=== PATIENT | female | born 1950 | race Caucasian/White ===

== ENCOUNTER 2022-02-02 21:47 | Inpatient (IN) | payer MEDICARE, SELFPAY ==
[2022-02-02] VITALS (7 sets, daily range): BP systolic 162–173; BP diastolic 71–112; PULSE 97–107; RESP 19–24; TEMP 37.2–39.1; O2SAT 95–99
--- NOTE | ~2022-02-02 | XR_ITS ---
EXAMINATION: XR chest 1V portable DATE: 02/03/2022 09:26 INDICATION: Shortness of breath. Cough. TECHNIQUE: A single frontal view of the chest was obtained. COMPARISON: Chest single view 02/02/2022 FINDINGS: There is a diffuse interstitial pattern, consistent mild pulmonary edema. There are mild ai rspace opacities in left mid and lower lung zones. No pleural effusion or pneumothorax. Cardiomegaly is noted. Median sternotomy wires and mediastinal surgical clips are seen, likely from prior coronary artery bypass grafting. There is an old healed fracture of proximal right humerus. IMPRESSION: 1. Mild pulmonary edema. 2. Mild airspace opacities in left mid and lower lung zones, consistent with atelectasis versus pneum onia. 3. Cardiomegaly. Reviewed, dictated and finalized at location A. IMPRESSION: 1. Mild pulmonary edema. 2. Mild airspace opacities in left mid and lower lung zones, consistent with at electasis versus pneumonia. 3. Cardiomegaly.
--- NOTE | ~2022-02-02 | XR_ITS ---
EXAMINATION: XR chest 1V portable DATE: 02/02/2022 22:21 INDICATION: Cough. Shortness of breath. TECHNIQUE: A single frontal view of the chest was obtained. COMPARISON: None. FINDINGS: There are airspace opacities in the mid and lower lung zones. No pleural effusion or pneumo thorax. Cardiomegaly is noted. Median sternotomy wires and mediastinal surgical clips are seen, likel y from prior coronary artery bypass grafting. IMPRESSION: 1. Airspace opacities in the mid and lower lung zones, consistent with atelectasis versus pneumonia. 2. Cardiomegaly. Reviewed, dictated and finalized at location A. IMPRESSION: 1. Airspace opacities in the mid and lower lung zones, consistent with atelecta sis versus pneumonia. 2. Cardiomegaly.
--- NOTE | 2022-02-02 22:00 | ECG_ITS ---
Measurements Intervals [place] Rate: 99 P: [place]: 0 QRS: 97 QRSD: 87 T: 106 QT: 361 QTc: 464 Interpretive Statements ATRIAL FIBRILLATION BORDERLINE RIGHT AXIS DEVIATION [QRS AXIS > 90] ST DEPRESSION IN LEADS 1 AND AVL; CONSIDER ISCHEMIA NONSPECIFIC ST T WAVE CHANGES ELSEWHERE POOR R-WAVE PROGRESSION NO PRIOR TRACINGS FOR COMPARISON Electronically Signed On 02-03-2022 16:39:44 CDT by Jessica Singh M.D.
--- NOTE | 2022-02-02 22:04 | ED.GENADULT ---
HPI - General Adult General Chief complaint: Shortness of Breath/Dyspnea Stated complaint: sob with cough x 2 days Source: RN notes reviewed History of Present Illness HPI narrative: Patient presents emergency department from home via EMS for shortness of breath. Patient states she has been having increased shortness of breath with a cough for the past 3 days. States that the cough is productive of clear sputum also notes low-grade fever. The patient noted to be 89% on room air and placed on nasal cannula. Denies any chest pain abdominal pain nausea vomiting or any other symptoms. States he does have a history of atrial fibrillation and is on Eliquis Related Data Home Medications Medication Instructions Recorded Confirmed apixaban [Eliquis] 5 mg PO BID 02/03/22 02/03/22 ascorbic acid (vitamin C) 500 mg PO DAILY 02/03/22 02/03/22 biotin 2,500 mcg PO DAILY 02/03/22 02/03/22 carvedilol 6.25 mg PO BID 02/03/22 02/03/22 cholecalciferol (vitamin D3) 5,000 unit PO DAILY 02/03/22 02/03/22 [Vitamin D3] diltiazem HCl 120 mg PO BID 02/03/22 02/03/22 esomeprazole magnesium [Nexium] 40 mg PO DAILY 02/03/22 02/03/22 ferrous sulfate [Iron (ferrous 325 mg PO DAILY 02/03/22 02/03/22 sulfate)] folic acid 0.8 mg PO DAILY 02/03/22 02/03/22 magnesium 400 mg PO DAILY 02/03/22 02/03/22 mecobalamin (vitamin B12) 1,000 mcg PO DAILY 02/03/22 02/03/22 sertraline 25 mg PO DAILY 02/03/22 02/03/22 Allergies Allergy/AdvReac Type Severity Reaction Status Date / Time No Known Allergies Allergy Verified 02/02/22 22:19 Review of Systems Review of Systems: Gen.: Reports fever ENT: Denies congestion Respiratory: See HPI CV: Denies chest pain or palpitations GI: Denies abdominal pain nausea, emesis or diarrhea Musculoskeletal: Denies back pain or muscle pain Neuro: Denies numbness, tingling, weakness or focal weakness Skin: Denies rash Except as documented, all other systems reviewed and negative PMFSH Past Medical History Medical History Atrial fibrillation Surgical History Surgical History S/P triple vessel bypass Family History Family History (Updated 02/03/22 @ 05:55 by Vicki Sanchez RN) Father CAD (coronary artery disease) Mother CAD (coronary artery disease) Acute myocardial infarction S/P CABG (coronary artery bypass graft) Sibling CAD (coronary artery disease) Acute myocardial infarction Sibling CAD (coronary artery disease) Cerebrovascular accident Sibling CAD (coronary artery disease) Diabetes mellitus Social History Social History Smoking packs per day: 1 Smoking cigarettes per day: 20.0 Years smoked: 20 Smoking pack-years: 20.00 Smoking status: Former smoker Tobacco type: cigarettes Alcohol intake: current Drinks per week: 1 Substance use: never Spiritual care concerns: No Exam Narrative: APPEARANCE: No acute distress, nontoxic, resting in bed EYES: EOMI HEENT: Normocephalic, atraumatic, OMM RESPIRATORY: Mild respiratory distress wheezing throughout the bilateral lung [place] no rhonchi CARDIOVASCULAR: Irregular irregular without murmurs rubs or gallops. ABDOMINAL: Soft, nontender, nondistended, no rebound or guarding MUSCULOSKELETAl: Moves all extremities. No clubbing, cyanosis or edema. NEURO: Awake and alert. Following commands, speech normal, no focal deficits SKIN:: Warm, dry. No rashes lesions or abrasions PSYCHIATRIC: Normal affect/mood, Course Course Emergency Course: Patient states she has a history of a triple bypass and 2000 she states that she is having no chest pain at this time On discussed with Dr Larsen presentation work-up on-call for interventional cardiology reviewed the patient's 2 EKGs and they were sent to him for review at this time with EKG changes he requests that cardiac cath team be call
[2022-02-02] MEDS: methylPREDNISolone SOD SUCC 125 MG VIAL IV PUSH (22:24)
[2022-02-02] MEDS: ALBUTEROL SULFATE NEB 2.5 MG/0.5 ML INH 5 MG INHALATION ×2 (22:41→23:40)
[2022-02-02] MEDS: IPRATROPIUM BR 0.02% INH SOLN 0.5 MG/2.5 ML VIAL INHALATION ×2 (22:41→23:40)
[2022-02-02 22:44] LABS: Basophils Absolute Auto 0.1 K/mm3 (0.0-0.1); Basophils Percent Auto 0.5 % (0.2-1.2); Eosinophils Percent Auto 0.1 % (0-4.4); Hematocrit 39.1 % (37.0-47.0); Hemoglobin 13.1 g/dL (12.0-15.0); Immature Granulocyte Absolute 0.14 K/mm3 (0.00-0.031); Immature Granulocyte Percent A 0.8 % (0-0.5); Lymphocytes Percent Auto 7.8 % (18.3-44.2); Mean Corpuscular HGB Conc 33.5 g/dl (32-36); Mean Corpuscular Hemoglobin 30.8 pg (26-34); Mean Corpuscular Volume 91.8 fl (80-100); Mean Platelet Volume 10.6 fl (7.4-10.4); Monocytes Absolute Auto 1.5 K/mm3 (0.1-0.6); Monocytes Percent Auto 9.2 % (2.6-8.5); Neutrophils Absolute Auto 13.6 K/mm3 (1.3-6.7); Neutrophils Percent Auto 81.6 % (45.5-73.1); Platelet Count Result 254 k/mm3 (150-375); Red Blood Count 4.26 M/mm3 (4.2-5.4); Red Cell Distribution Width 15.5 % (11.5-14.5); White Blood Count 16.7 K/mm3 (4.5-10.0)
--- NOTE | 2022-02-02 22:53 | ECG_ITS ---
Measurements Intervals [place] Rate: 104 P: [place]: 0 QRS: 100 QRSD: 86 T: 126 QT: 357 QTc: 471 Interpretive Statements ATRIAL FIBRILLATION WITH RAPID VENTRICULAR RESPONSE BORDERLINE RIGHT AXIS DEVIATION [QRS AXIS > 90] ST DEPRESSION, CONSIDER SUBENDOCARDIAL INJURY NOTED IN LEADS 1, AVL AND V2 SLIGHT ST ELEVATION IN LEADS 3 AND AVF, NEW COMPARED TO EARLIER TRACING; CONSIDER POSSIBLE INFERIOR STEMI Electronically Signed On 02-03-2022 16:40:33 CDT by Jessica Singh M.D.
[2022-02-02 22:56] LABS: Alanine Aminotransferase 30 U/L (4-35); Albumin Level 4.5 g/dL (3.5-5.1); Alkaline Phosphatase 150 U/L (38-126); Anion Gap 11 mmol/L (8-16); Aspartate Amino Transferase 37 U/L (14-36); Bilirubin,Total 1.6 mg/dL (0.2-1.3); Blood Urea Nitrogen 16 mg/dL (7-17); Carbon Dioxide 24 mmol/L (22-30); Chloride 100 mmol/L (98-107); Estimated CRCL calculation 62 ml/min; Estimated Glomerular Filt Rate > 60; Glucose 117 mg/dL (65-110); Potassium 3.5 mmol/L (3.4-5.0); Sodium 135 mmol/L (137-145)
[2022-02-02 22:57] LABS: Anion Gap 11 mmol/L (8-16); Blood Urea Nitrogen 16 mg/dL (7-17); Carbon Dioxide 24 mmol/L (22-30); Chloride 100 mmol/L (98-107); Estimated CRCL calculation 62 ml/min; Estimated Glomerular Filt Rate > 60; Glucose 116 mg/dL (65-110); Lactic Acid Reflex 1.2 mmol/L (0.7-2.1); Potassium 3.5 mmol/L (3.4-5.0); Sodium 135 mmol/L (137-145)
[2022-02-02 23:15] LABS: Troponin I 0.038 ng/mL (0.000-0.034)
[2022-02-02 23:18] LABS: Influenza A QL RT-PCR Negative (Negative); Influenza B QL RT-PCR Negative (Negative); SARS-CoV-2 RNA PCR Negative
[2022-02-02 23:39] LABS: Alanine Aminotransferase 31 U/L (4-35); Albumin Level 4.7 g/dL (3.5-5.1); Alkaline Phosphatase 149 U/L (38-126); Aspartate Amino Transferase 38 U/L (14-36); Bilirubin,Total 1.6 mg/dL (0.2-1.3)
--- NOTE | 2022-02-02 23:44 | ECG_ITS ---
Measurements Intervals [place] Rate: 102 P: [place]: 0 QRS: 100 QRSD: 89 T: -15 QT: 352 QTc: 459 Interpretive Statements ATRIAL FIBRILLATION WITH RAPID VENTRICULAR RESPONSE BORDERLINE RIGHT AXIS DEVIATION [QRS AXIS > 90] NONSPECIFIC ST & T-WAVE ABNORMALITY COMPARED TO ECG 02/02/2022 23:09:[address] DEPRESSION HAS IMPROVED AND THE INFERIOR ST-ELEVATION HAS IMPROVED. Electronically Signed On 02-03-2022 16:40:58 CDT by Jessica Singh M.D.
[2022-02-03] VITALS (25 sets, daily range): BP systolic 108–168; BP diastolic 52–81; PULSE 71–115; RESP 13–26; TEMP 36.3–38.3; O2SAT 93–98; BMI 29.4
--- NOTE | 2022-02-03 00:09 | PC.NURSE ---
label drier here to get pt.
[2022-02-03 00:10] LABS: Partial Thromboplastin Time 42.2 SECONDS (22.3-36.8)
[2022-02-03 00:12] LABS: Add Urine Microscopic? YES; Appearance Urine Cloudy (Clear); Bilirubin Urine Negative (Negative); Blood Urine Negative (Negative); Color Urine Amber (Yellow); Glucose Urine UA Negative (Negative); Ketones Urine 1+ mg/dL (Negative); Leukocyte Esterase Ur Negative LEU/UL (Negative); Mucus Urine Moderate /lpf; Nitrate Urine Negative (Negative); Protein Urine 3+ mg/dL (Negative); Squamous Epithelial Cell Urine Occasional /hpf (Few)
[2022-02-03 00:15] LABS: INR 1.7; Prothrombin Time 19.4 Seconds (11.1-14.7)
[2022-02-03 00:21] LABS: Specific Grav Ur 1.032 (1.001-1.035)
--- NOTE | 2022-02-03 01:19 | WPDHPUPDATE1 ---
History and Physical Update Update Date/Time: 02/03/22 01:19 History and Physical has been reviewed, including an updated exam of the patient. There are NO changes in the patient's condition. Risks, benefits, and alternatives have been discussed and questions answered. Patient agrees to proceed with procedure.
--- NOTE | 2022-02-03 01:19 | WPDMODSED ---
Moderate Sedation Note-Pt Data Patient Data Allergies Allergy/AdvReac Type Severity Reaction Status Date / Time No Known Allergies Allergy Verified 02/02/22 22:19 Current Medications: Active Medications Ceftriaxone Sodium/Dextrose (Rocephin 1 Gm/D5w 50 Ml) 1 gm in 50 mls @ 100 mls/hr IVPB Q24H [facility] Azithromycin (Zithromax) 500 mg in 250 mls @ 250 mls/hr IVPB Q24H [facility] Sedation/Anesthesia: No previous sedation/anesthesia problems (including family history). PMFSH Past Medical History Medical History Atrial fibrillation Surgical History Surgical History S/P triple vessel bypass Social History Social History Smoking status: Never smoker Mod Sed Physical Exam Physical Exam Pre Procedural Exam: Normal: Appearance, Eyes, Ears, Nose, Neck, Throat, Airway, Lungs, Heart Size, Heart Rate, Heart Rhythm, Neuro Exam, Abdomen, Liver, Kidneys, Spleen, Breasts, Genitalia, Extremities and Skin Hours since solid foods: 8 Hours since liquid intake: 8 Mallampati Classification: class 1 Internal Medicine - PN: Obj Da Vital Signs Vital Signs: Vital Signs - 24 hr 02/02/22 21:56 02/02/22 22:41 02/02/22 22:46 Temperature 39.1 C H Pulse Rate 98 104 H 104 H Respiratory Rate 20 22 H 24 H Blood Pressure 162/112 H Pulse Oximetry 95 02/02/22 23:00 02/02/22 23:40 02/02/22 23:49 Temperature 37.2 C Pulse Rate 103 H 107 H 97 Respiratory Rate 22 H 22 H 19 Blood Pressure 173/71 H Pulse Oximetry 99 02/02/22 23:59 Temperature 38.6 C H Pulse Rate 104 H Respiratory Rate 20 Blood Pressure 170/75 H Pulse Oximetry 98 Meds/Results Medications: Active Medications Generic Name Dose Route Start Last Admin Trade Name Freq PRN Reason Stop Dose Admin Ceftriaxone Sodium/Dextrose 1 gm in 50 mls @ 100 mls/hr 02/02/22 23:35 Rocephin 1 Gm/D5w 50 Ml IVPB Q24H [facility] Azithromycin 500 mg in 250 mls @ 250 mls/hr 02/02/22 23:35 Zithromax IVPB Q24H [facility] Labs CBC & Chem 7: 02/02/22 22:30 02/02/22 22:30 Labs: Laboratory Results - last 24 hr 02/02/22 02/02/22 02/02/22 22:30 22:30 22:30 WBC 16.7 H RBC 4.26 Hgb 13.1 Hct 39.1 MCV 91.8 MCH 30.8 MCHC 33.5 RDW 15.5 H Plt Count 254 MPV 10.6 H Immature Gran % (Auto) 0.8 H Neut % (Auto) 81.6 H Lymph % (Auto) 7.8 L Dewitt % (Auto) 9.2 H Eos % (Auto) 0.1 Baso % (Auto) 0.5 Lymph # (Auto) 1.30 Dewitt # (Auto) 1.5 H Eos # (Auto) 0.0 Baso # (Auto) 0.1 Abs Immat Gran (auto) 0.14 H Absolute Neuts (auto) 13.6 H Absolute Nucleated RBC 0.0 Nucleated RBC % 0.0 PT INR APTT Sodium 135 L Potassium 3.5 Chloride 100 Carbon Dioxide 24 Anion Gap 11 BUN 16 Creatinine 0.50 L Estim Creat Clear Calc 62 Estimated GFR > 60 Glucose 117 H Lactic Acid 1.2 Calcium 9.0 Total Bilirubin 1.6 H Direct Bilirubin AST 37 H ALT 30 Alkaline Phosphatase 150 H Troponin I Total Protein 8.0 Albumin 4.5 Urine Color Urine Appearance Urine pH Ur Specific [place] Urine Protein Urine Glucose (UA) Urine Ketones Ur Blood (Man) Urine Nitrate Urine Bilirubin Urine Urobilinogen Leukocyte Esterase Rfl Urine RBC Urine WBC Ur Squamous Epith Cells Urine Mucus Influenza A (RT-PCR) Influenza B (RT-PCR) SARS-CoV-2 RNA (RT-PCR) 02/02/22 02/02/22 02/02/22 22:30 22:30 22:30 WBC RBC Hgb Hct MCV MCH MCHC RDW Plt Count MPV Immature Gran % (Auto) Neut % (Auto) Lymph % (Auto) Dewitt % (Auto) Eos % (Auto) Baso % (Auto) Lymph # (Auto) Dewitt # (Auto) Eos # (Auto) Baso # (Auto) Abs Immat Gran (auto) Absolute Neuts (auto) Absol
--- NOTE | 2022-02-03 01:20 | PM.IMHP ---
H&P: HPI History of Present Illness Date/Time: DOS: 02/03/22 01:20 Chief Complaint: Shortness of breath cough Narrative: this 72-year-old lady with history CABG and then the redo 1999 with reported 3 grafts. history of atrial fibrillation on Eliquis follows up with Dr. dsouza. 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 Denies chest pain. denies lower extremity edema. Last Eliquis dose was yesterday morning. I was called to see the patient because the initial EKG shows ST elevation inferior leads with ST depression in leads 1 and aVL. Initial troponin 0.038. However the EKG after that normalized. family history: denies CAD. Review of Systems Review of Systems: All systems reviewed & are unremarkable except as noted in HPI and below Constitutional: Constitutional: Reports chills, Reports fatigue, Reports fever(s), Denies headache(s) and Denies snoring Eyes: Eyes: Denies eye discharge and Denies loss of vision ENT: Denies dizziness, Denies headache(s), Denies nasal discharge and Denies sore throat Cardiovascular: Cardiovascular: Reports as per HPI, Denies chest pain, Denies syncope, Denies rapid heart rate, Denies leg edema, Reports dyspnea, Reports dyspnea on exertion, Denies orthopnea and Denies paroxysmal nocturnal dyspnea Respiratory: Respiratory: Reports chest congestion, Reports cough, Reports dyspnea, Reports dyspnea on exertion, Denies snoring and Denies wheezing Gastrointestinal: Gastrointestinal: Denies abdominal pain, Denies diarrhea, Denies nausea and Denies vomiting Genitourinary: Genitourinary: Denies hematuria, Denies urinary frequency, Denies dysuria and Denies flank pain Musculoskeletal: Musculoskeletal: Denies myalgias, Denies arthralgias and Denies joint swelling Neurologic: Denies Abnormal speech present, Denies dizziness, Denies syncope, Denies headache(s), Denies focal weakness and Denies loss of vision Psychiatric: Psychiatric: Denies anxiety and Denies depression Endocrine: Endocrine: Denies cold intolerance, Denies fatigue and Denies heat intolerance Hematologic/Lymphatic: Hematologic/Lymphatic: Denies easy bleeding and Denies easy bruising Allergic/Immunologic: Allergic/Immunologic: Denies urticaria and Denies wheezing PMFSH Past Medical History Medical History Atrial fibrillation Surgical History Surgical History S/P triple vessel bypass Social History Social History Smoking status: Never smoker Meds Home Medications and Allergies Allergies Allergy/AdvReac Type Severity Reaction Status Date / Time No Known Allergies Allergy Verified 02/02/22 22:19 Vital Signs Vital Signs - 24 hr 02/02/22 21:56 02/02/22 22:41 02/02/22 22:46 Temperature 39.1 C H Pulse Rate 98 104 H 104 H Respiratory Rate 20 22 H 24 H Blood Pressure 162/112 H Pulse Oximetry 95 02/02/22 23:00 02/02/22 23:40 02/02/22 23:49 Temperature 37.2 C Pulse Rate 103 H 107 H 97 Respiratory Rate 22 H 22 H 19 Blood Pressure 173/71 H Pulse Oximetry 99 02/02/22 23:59 Temperature 38.6 C H Pulse Rate 104 H Respiratory Rate 20 Blood Pressure 170/75 H Pulse Oximetry 98 Exam Const: General: cooperative, healthy appearing, comfortable, no acute distress and well developed Nutritional Appearance: well nourished Orientation/consciousness: patient oriented x3 HENMT: Head: normal to inspection, normocephalic and atraumatic Ears: hearing grossly normal bilaterally and external ears normal General nose exam: Normal external nose present and Normal nares present Face and sinus: normal facial exam and no erythema Mouth: Yes moist mucous membranes and No lip abnormal Throat: uvula mid
--- NOTE | 2022-02-03 01:28 | WPDCARDPROC ---
Cardiac Cath Procedure Note Date of procedure:: 02/03/22 Performing physician:: Barron Hamilton MD Indication:: Inferior STEMI Brief clinical history:: this 72-year-old lady with history CABG and then the redo 2000 with reported 3 grafts. history of atrial fibrillation on Eliquis follows up with Dr. dsouza. 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 Denies chest pain. denies lower extremity edema. Last Eliquis dose was yesterday morning. I was called to see the patient because the initial EKG shows ST elevation inferior leads with ST depression in leads 1 and aVL. Initial troponin 0.038. However the EKG after that normalized. Procedure Procedure performed:: 1- selective right common femoral artery angiogram. 2- Selective left common femoral artery angiogram. 3- Selective left common and external iliac artery angiogram. Sedation/Medication given:: moderate sedation that started at 12:37 a.m. and ended at 1:08 a.m. a total duration 31 minutes using 1 mg of Versed and 25 mcg of fentanyl. The registered nurse was yoan card. Access site:: right and left common femoral arteries. Estimated blood loss:: 10 cc Procedure note:: After informed consent patient was brought into the optical laboratory manager where she was draped and prepped in the usual manner. The right groin was infiltrated using 1% lidocaine. After that micro puncture sheath was obtained using modified Seldinger technique. we tried to advance J-wire without success and got stuck in external iliac just before a stent. Then we took an angled glide wire and again we could not pass any further. At this time I have put 6 Arabic sheath and then took JR4 catheter and tried to go up with angled glide wire and we could not advance the wire at all. we took angiogram and selective right common femoral arterial angiogram. At this time I decided to access the left groin and therefore left groin infiltrated using 1% lidocaine and then micro puncture needle was used to access the left common femoral artery and micropuncture sheath was placed. We managed to place 6 Arabic sheath. We attempted to try and pass the J wire without success. At this time I took angled glide wire and could not pass it either. Selective common femoral artery angiogram was done. Then I used JR4 catheter with angled glide and angled glide passed all the way up however I could not pass the JR4 catheter. I exchanged the angled glide wire with long J-wire and then took 45 cm sheath however we could not advance it beyond the mid left common iliac. There was sharp angle with diffuse calcification. Selective left common iliac arterial angiogram was done. At this time we decided to abort the cardiac catheterization due to inability to pass catheters. Findings:: 1- Right common femoral artery angiogram has severe stenosis distal to the access point. diffuse calcification the right external iliac and there is a stent placed in the right external iliac that has diffuse irregularities. I believe prior to the stent there is a focal area of stenosis that we could not pass any catheters beyond that point. 2- Left common femoral artery angiogram shows that the bifurcation of the left common femoral arteries high and corresponding to the midportion of the femoral head. After that the left external iliac has diffuse calcification and left external iliac along with the left common femoral artery have tortuosities and diffuse calcification that made navigating catheters is extremely challenging. Conclusion:: - Inability to pass catheters from the right and the left femoral arteries due to tortuosities and calcification in the iliacs. Assessment and Plan Additional Plan - We will continue medical management for now. - Continue treatment for fever and cough - further plans for ischemic evaluation
--- NOTE | 2022-02-03 01:30 | ADMGEN ---
This patient, Karen Martinez, was admitted to Intensive Care Unit-1. Patient/family oriented to hospital policies and general routines including ID bracelet, bed and alarms, visiting hours, pain management, procedures, bathroom and other care routines, personal items, smoking policy, room service/diet, and visiting hours. Information on how to activate the Rapid Response Team has been discussed. Patient/Family are encouraged to report perceived risks to care and to ask questions if they do not understand what they are told or what they should do.
--- NOTE | 2022-02-03 01:43 | ECG_ITS ---
Measurements Intervals [place] Rate: 96 P: [place]: 0 QRS: 96 QRSD: 92 T: -30 QT: 392 QTc: 495 Interpretive Statements ATRIAL FIBRILLATION BORDERLINE RIGHT AXIS DEVIATION [QRS AXIS > 90] NONSPECIFIC ST & T-WAVE ABNORMALITY SLIGHT ST DEPRESSION IN THE LATERAL LEADS, CONSIDER ISCHEMIA COMPARED TO ECG 02/02/2022 23:47:48 NO SIGNIFICANT CHANGES Electronically Signed On 02-03-2022 16:43:03 CDT by Jessica Singh M.D.
--- NOTE | 2022-02-03 03:00 | PC.NURSE ---
Daylight Savings Time For Daylight Savings Time Ending in the Fall - Clocks are moved back. For Daylight Savings Time Beginning in the Spring - Clocks are moved ahead. For [facility], the time of change occurs at 0200 hrs. Time is taken from the water server. This entry on the patient's chart recognizes the change in time reflected during documentation. Example: 2 entries for vital signs may be charted for 0200 hrs.
[2022-02-03 05:27] LABS: Basophils Absolute Auto 0.1 K/mm3 (0.0-0.1); Basophils Percent Auto 0.4 % (0.2-1.2); Hematocrit 37.6 % (37.0-47.0); Hemoglobin 12.2 g/dL (12.0-15.0); Immature Granulocyte Absolute 0.11 K/mm3 (0.00-0.031); Immature Granulocyte Percent A 0.8 % (0-0.5); Lymphocytes Percent Auto 5.1 % (18.3-44.2); Mean Corpuscular HGB Conc 32.4 g/dl (32-36); Mean Corpuscular Hemoglobin 31.1 pg (26-34); Mean Corpuscular Volume 95.9 fl (80-100); Mean Platelet Volume 10.6 fl (7.4-10.4); Monocytes Absolute Auto 0.3 K/mm3 (0.1-0.6); Monocytes Percent Auto 2.4 % (2.6-8.5); Neutrophils Absolute Auto 12.4 K/mm3 (1.3-6.7); Neutrophils Percent Auto 91.3 % (45.5-73.1); Platelet Count Result 217 k/mm3 (150-375); Red Blood Count 3.92 M/mm3 (4.2-5.4); Red Cell Distribution Width 15.6 % (11.5-14.5); White Blood Count 13.6 K/mm3 (4.5-10.0)
[2022-02-03 05:43] LABS: Anion Gap 9 mmol/L (8-16); Blood Urea Nitrogen 13 mg/dL (7-17); Calcium 8.4 mg/dL (8.4-10.2); Carbon Dioxide 22 mmol/L (22-30); Chloride 104 mmol/L (98-107); Estimated CRCL calculation 90 ml/min; Estimated Glomerular Filt Rate > 60; Glucose 178 mg/dL (65-110); Potassium 3.6 mmol/L (3.4-5.0); Sodium 135 mmol/L (137-145)
[2022-02-03 06:27] LABS: INR 1.6; Prothrombin Time 18.1 Seconds (11.1-14.7)
[2022-02-03 06:29] LABS: Partial Thromboplastin Time 50.4 SECONDS (22.3-36.8)
[2022-02-03 08:04] LABS: NT Pro B Type Natriuretic Pept 3620 pg/mL (5-100)
[2022-02-03] MEDS: SODIUM CHLORIDE 0.9% IV 1,000 ML 75 ML IV CONT (08:57)
[2022-02-03] MEDS: CLOPIDOGREL BISULFATE 75 MG TABLET PO (08:58)
--- NOTE | 2022-02-03 09:18 | PM.PNCARD ---
Progress Note: A&P Assessment and Plan (1) ST elevation (STEMI) myocardial infarction: Code(s): I21.3 - ST elevation (STEMI) myocardial infarction of unspecified site Status: Acute Assessment and Plan: Patient is thought to have an inferior STEMI early this morning with EKG changes at resolved. Waxing and waning EKG changes. Unable to perform cardiac catheterization be due to lack of femoral access Patient has been feeling better, and has never had any chest pain. Will continue to treat as ACS. Ordered troponins Continue aspirin, plavix, carvedilol, etc. Not on a statin; add atorvastatin Start heparin drip Obtain records and I will try to talk to Dr. Chang today. May need another attempt at cardiac catheterization, hopefully in elective manner, depending on the patient's course. Access will be a problem since she has had her left radial artery harvested and the right radial pulse is decreased. (2) Community acquired pneumonia: Code(s): J18.9 - Pneumonia, unspecified organism Status: Acute Assessment and Plan: On anticiotica and O2. COVID and influenza screens negative (3) S/P triple vessel bypass: Code(s): Z95.1 - Presence of aortocoronary bypass graft Status: Acute Assessment and Plan: H/O re-do CABG 1999; pt says 3 vessel CABG. (4) Atrial fibrillation: Code(s): I48.91 - Unspecified atrial fibrillation Status: Acute Assessment and Plan: Persistent a fib, on rate control and anticoagulation. (5) PVD (peripheral vascular disease): Code(s): I73.9 - Peripheral vascular disease, unspecified Status: Acute Assessment and Plan: H/O LE revascualrizatioin. Unable to gain acdess to the central circulation through the femorals Left DP pulse nearly absent (PT intact, foot warm) Subjective Date/time seen: 02/03/22 09:18 Interval history: Progress note/Interum note: Follow-up pneumonia, STEMI History: Ms. Martinez has a history of CABG and redo CABG x3 in 1999 and has subsequently been followed by Dr. Chang with no further coronary issues. As far as she recalls she has passed her stress test and has no chronic coronary occlusions. She he developed atrial fib but couple years ago and has been anticoagulated with Eliquis, rate control with diltiazem. Also couple years ago she had problems with peripheral vascular disease and had a procedure on the right leg which did not go well, requiring a prolonged hospital stay, with some bleeding complications and requiring a stent. She has no typical angina, and her exertion is limited by CASTRO. She does have hypertension and hyperlipidemia. About 3 or 4 days ago she started having a cough productive of brown sputum and increased shortness of breath. Possibly some orthopnea. Yesterday she felt bad and called EMS and apparently her fever was 103? on their arrival. In the emergency room her temperature was a 102.3?. Chest x-ray was consistent with pneumonia and she was started on antibiotics. Her 1st EKG on 02/02/2022 at 10:00 p.m. showed atrial fibrillation rate [address] depression in leads 1 and aVL. A 2nd EKG at 02/02/2022 at 11:09 p.m. showed AFib rate 102, ST depression in 1 and L, and V2, and it was thought she had some slight ST elevation in leads 3 and AVF consistent with a possible STEMI. She never had any chest pain. Dr. Hamilton was called for her apparent STEMI and the cath team was called in. He was not able to gain access to the central circulation through the right groin or the left groin. At that point the EKG showed resolution of the ST elevation and improvement of the ST depression and the procedure was abandoned. Date of service 02/03/2022 Pt is feeling better now, eating breakfast. Mild cough and SOB, no CP/pressure/tightness. On 3L O2. Difficulty dopplering left DP pulse but no c/o pain and PT is dopplerable. Review of Systems Constitutional: Constitutional: Repor
[2022-02-03] MEDS: ASPIRIN 81 MG ENTERIC TABLET PO (09:27)
[2022-02-03 09:51] LABS: Troponin I 0.472 ng/mL (0.000-0.034)
[2022-02-03 10:26] LABS: Cholesterol 125 mg/dL (0-200); HDL Direct 48 mg/dL; Triglycerides 62 mg/dL (<150)
[2022-02-03] MEDS: FERROUS SULFATE 324 MG TABLET PO (10:35)
[2022-02-03 10:37] LABS: LDL Cholesterol Direct 55 mg/dL
[2022-02-03] MEDS: CYANOCOBALAMIN 1,000 MCG TABLET 1000 MCG PO (10:39)
[2022-02-03] MEDS: MAGNESIUM OXIDE 400 MG TABLET PO (10:39)
[2022-02-03] MEDS: FOLIC ACID 0.4 MG TABLET 0.8 MG PO (10:39)
[2022-02-03] MEDS: SERTRALINE HCL 25 MG TABLET PO (10:40)
[2022-02-03] MEDS: PANTOPRAZOLE 40 MG TABLET PO (10:40)
[2022-02-03] MEDS: carvediloL 6.25 MG TABLET PO (10:40)
[2022-02-03] MEDS: HEPARIN SOD/D5W 100 UNITS/ML 25,000 UNITS/250 ML BAG 7 UNITS IV CONT (10:41)
--- NOTE | 2022-02-03 10:43 | WPDCNINT ---
Assessment and Plan Assessment and plan (1) ST elevation (STEMI) myocardial infarction: Code(s): I21.3 - ST elevation (STEMI) myocardial infarction of unspecified site Status: Acute Assessment and Plan: Patient with shortness of breath, EKGs with some ST depressions and mild ST elevations in inferior leads -patient was taken for PTCA but unable to perform the cardiac catheterization due to lack of femoral access on both sides -has never had any chest pain during this admission -appreciate cardiology recommendations -continue treat for ACS, -troponins elevated -continue aspirin, Plavix, Coreg. Atorvastatin was added -will start heparin infusion per Cardiology -echocardiogram has been ordered -cardiology to discuss with [facility], if they accept the patient we may have to move it to [facility] (2) Community acquired pneumonia: Code(s): J18.9 - Pneumonia, unspecified organism Status: Acute Assessment and Plan: Patient complained of cough, fevers, shortness of breath -chest x-ray shows airspace opacities in left mid and lower lung zones -patient febrile, requiring 3 L oxygen via nasal cannula -she has been started on ceftriaxone and azithromycin (initiated on 02/03/2022) - blood cultures have been obtained, will order sputum cultures if able (3) Atrial fibrillation: Code(s): I48.91 - Unspecified atrial fibrillation Status: Acute Assessment and Plan: Patient in AFib, rate controlled -continue Coreg -heparin infusion (4) PVD (peripheral vascular disease): Code(s): I73.9 - Peripheral vascular disease, unspecified Status: Acute Assessment and Plan: History of lower extremity revascularization -unable to gain access to the central circulation through the femoral arteries -left dorsalis pedis this dopplerable but weak (5) Essential hypertension: Code(s): I10 - Essential (primary) hypertension Status: Acute Assessment and Plan: Continue diltiazem and Coreg (6) DVT prophylaxis: Code(s): Z29.9 - Encounter for prophylactic measures, unspecified Status: Acute Assessment and Plan: Heparin infusion Additional Plan Stress ulcer prophylaxis: Protonix Nutrition: Heart healthy diet Discussed with patient updated her with her condition and plan of care. She is aware that cardiology is following her and will be calling [facility] and will discuss with them regarding accepted sitter patient [facility], and if yes she will be transferred out Code status: Full code Critical care time spent: 45 minutes This dictation may have been done utilizing a voice recognition system. Attempts have been made to correct errors. However, there may be uncorrected grammatical, spelling, and recognition errors present. Due to a high probability of clinically significant, life threatening deterioration, the patient required my highest level of preparedness to intervene emergently and I personally spent this critical care time directly and personally managing the patient. This critical care time included obtaining a history; examining the patient; pulse oximetry; ordering and review of studies; arranging urgent treatment with development of a management plan; evaluation of patient's response to treatment; frequent reassessment; and discussions with other providers. It was exclusive of separately billable procedures and treating other patients and teaching time. Please see Assessment and Plan section and the rest of the note for further information on patient assessment and treatment Char [employer] Consult Note Consult date: 02/03/22 Time Seen: 07:04 Reason for consult: Shortness of breath with pneumonia, STEMI HPI: Karen Karin Michelle is a 72 year old female with significant past medical history of CABG and redo CABG x3 in 1999, history of atrial fibrillation and peripheral vascular disease presented the ED
[2022-02-03 12:14] LABS: Troponin I 0.428 ng/mL (0.000-0.034)
[2022-02-03] MEDS: guaiFENesin/CODEINE (*CRX) 200/20 MG 10 ML SYRUP PO ×2 (12:14→17:22)
[2022-02-03] MEDS: IPRATROPIUM BR 0.02% INH SOLN 0.5 MG/2.5 ML VIAL INHALATION (14:47)
[2022-02-03] MEDS: LEVALBUTEROL NEB 1.25 MG/3 ML 0.63 MG INHALATION (14:48)
[2022-02-03 15:05] LABS: Troponin I 0.853 ng/mL (0.000-0.034)
[2022-02-03 16:51] LABS: Partial Thromboplastin Time 52.8 SECONDS (22.3-36.8)
[2022-02-03] MEDS: HEPARIN SODIUM 5,000 UNITS/ML VIAL 4000 UNITS IV PUSH (17:22)
--- NOTE | 2022-02-03 17:32 | ECG_ITS ---
Measurements Intervals [place] Rate: 74 P: CT: 0 QRS: 48 QRSD: 89 T: 120 QT: 426 QTc: 474 Interpretive Statements ATRIAL FIBRILLATION NONSPECIFIC ST AND T ABNORMALITY COMPARED TO ECG 02/03/2022 01:43:37 VENTRICULAR RESPONSE TO AFIB IS REDUCED Electronically Signed On 02-04-2022 14:11:30 CDT by [place] Manuel M.D.
== END 2022-02-03 19:22 | disposition short-term general hospital (02) | DRG 280 ==
LOC: ANHED 02-03 00:24 → ANHICU 02-03 04:45
PROVIDERS: Internal Medicine; Admitting Provider Internal Medicine Cardiovascular Disease; Emergency Provider Emergency Medicine; PCP Internal Medicine; Visit Provider Internal Medicine Cardiovascular Disease
PROC: 4A023N7 Measurement of Cardiac Sampling and Pressure, Left Heart, Percutaneous Approach (ICD-10-PCS; CPT 93452; principal; 2022-02-03 00:30)
DX: I21.19 ST elevation (STEMI) myocardial infarction involving other coronary artery of inferior wall (principal); J18.9 Pneumonia, unspecified organism; I48.19 Other persistent atrial fibrillation; Z20.822 Contact with and (suspected) exposure to COVID-19; I73.9 Peripheral vascular disease, unspecified; Z95.1 Presence of aortocoronary bypass graft; Z79.01 Long term (current) use of anticoagulants; Z87.891 Personal history of nicotine dependence; Z95.820 Peripheral vascular angioplasty status with implants and grafts
CPT/HCPCS: 36415; 71045; 80048; 80053; 80061; 80076; 81001; 83605; 83880; 84484; 85025; 85610; 85730; 87040; 87070; 87205; 87502; 93005; 93458; 94640; 96365; 96366; 96375; 99291; A9270; C1769; C1887; C1894; C9803; J0131; J0456; J0583; J0696; J1644; J2250; J2930; J3010; J7030; J7040; J7050; U0003; U0005

== ENCOUNTER 2022-08-12 14:21 | Outpatient (CLI) | payer MEDICARE, SELFPAY ==
[2022-08-12 14:38] LABS: Basophils Absolute Auto 0.1 K/mm3 (0.0-0.1); Basophils Percent Auto 1.5 % (0.2-1.2); Eosinophils Absolute Auto 0.2 K/mm3 (0-0.3); Eosinophils Percent Auto 2.1 % (0-4.4); Hematocrit 33.7 % (37.0-47.0); Hemoglobin 9.2 g/dL (12.0-15.0); Immature Granulocyte Absolute 0.02 K/mm3 (0.00-0.031); Immature Granulocyte Percent A 0.3 % (0-0.5); Immature Reticulocyte Fraction 18.7 % (3.0-15.9); Lymphocytes Absolute Auto 1.36 K/mm3 (0.9-3.2); Lymphocytes Percent Auto 19.1 % (18.3-44.2); Mean Corpuscular HGB Conc 27.3 g/dl (32-36); Mean Corpuscular Hemoglobin 19.8 pg (26-34); Mean Corpuscular Volume 72.6 fl (80-100); Mean Platelet Volume 10.2 fl (7.4-10.4); Monocytes Absolute Auto 0.8 K/mm3 (0.1-0.6); Neutrophils Absolute Auto 4.7 K/mm3 (1.3-6.7); Platelet Count Result 311 k/mm3 (150-375); Red Blood Count 4.64 M/mm3 (4.2-5.4); Red Cell Distribution Width 21.7 % (11.5-14.5); Reticulocyte Hemoglobin Conten 30.2 pg (28.2-35.7); Reticulocyte Percent 0.48 % (0.7-4.3); Reticulocytes Absolute 0.02 B/L (32.2-175.7); White Blood Count 7.1 K/mm3 (4.5-10.0)
[2022-08-12 14:45] LABS: Anisocytosis 1+ (NORMAL); Crenated RBC 1+ (NORMAL); Hypochromasia 2+ (NORMAL); Ovalocytes 1+ (NORMAL); Platelet Estimate Adequate (Adequate); Poikilocytosis 2+ (NORMAL)
[2022-08-12 15:26] LABS: Iron 88 ug/dL (37-170)
[2022-08-12 15:31] LABS: Alanine Aminotransferase 20 U/L (6-35); Albumin Level 4.4 g/dL (3.5-5.1); Alkaline Phosphatase 103 U/L (38-126); Anion Gap 10 mmol/L (8-16); Aspartate Amino Transferase 32 U/L (14-36); Bilirubin,Total 0.5 mg/dL (0.2-1.3); Blood Urea Nitrogen 17 mg/dL (7-17); Carbon Dioxide 26 mmol/L (22-30); Chloride 104 mmol/L (98-107); Estimated Glomerular Filt Rate > 60; Glucose 98 mg/dL (65-110); Lactate Dehydrogenase 194 U/L (120-246); Potassium 3.7 mmol/L (3.4-5.0); Sodium 140 mmol/L (137-145)
[2022-08-12 15:40] LABS: Percent Iron Saturation 18 % (20-50)
[2022-08-12 16:42] LABS: Folic Acid > 20.0 ng/mL (2.76->20)
[2022-08-15 08:46] LABS: Methylmalonic Acid 170 nmol/L (87-318)
[2022-08-16 19:12] LABS: Soluble Transferrin Receptor 7.51 mg/L (0.76-1.76)
== END 2022-08-12 14:22 | disposition home or self-care (01) ==
LOC: ANHLAB 14:22
PROVIDERS: PCP Internal Medicine; Visit Provider Internal Medicine Hematology & Oncology
DX: D64.9 Anemia, unspecified (principal)
CPT/HCPCS: 36415; 80053; 82607; 82728; 82746; 83540; 83550; 83615; 83921; 84238; 85025; 85046

== ENCOUNTER 2022-10-21 12:48 | Outpatient (CLI) | payer MEDICARE, SELFPAY ==
[2022-10-21 14:32] LABS: Hematocrit 32.5 % (37.0-47.0); Hemoglobin 9.8 g/dL (12.0-15.0); Mean Corpuscular HGB Conc 30.2 g/dl (32-36); Mean Corpuscular Hemoglobin 28.4 pg (26-34); Mean Corpuscular Volume 94.2 fl (80-100); Mean Platelet Volume 10.3 fl (7.4-10.4); Platelet Count Result 306 k/mm3 (150-375); Red Blood Count 3.45 M/mm3 (4.2-5.4); Red Cell Distribution Width 21.7 % (11.5-14.5); White Blood Count 7.7 K/mm3 (4.5-10.0)
[2022-10-21 18:07] LABS: Iron 160 ug/dL (37-170)
[2022-10-21 18:25] LABS: Percent Iron Saturation 39 % (20-50)
== END 2022-10-21 12:49 | disposition home or self-care (01) ==
PROVIDERS: Visit Provider Internal Medicine Hematology & Oncology
DX: D64.9 Anemia, unspecified (principal)
CPT/HCPCS: 36415; 82728; 83540; 83550; 85027

== ENCOUNTER 2023-05-05 17:15 | Emergency (ER) | payer MEDICARE, SELFPAY ==
--- NOTE | ~2023-05-05 | CT_ITS ---
EXAMINATION: CT abdomen pelvis w con DATE: 05/05/2023 18:55 INDICATION: sigmoid diverticulitis TECHNIQUE: Computed tomography (CT) of the abdomen and pelvis was performed with 100 mL Omnipaque-350 intravenous contrast. Automated exposure control and iterative reconstruction technique were employe d. The dose-length product was 194.95 mGy-cm. COMPARISON: None. FINDINGS: Lower thorax: Lingular scar/atelectasis. Median sternotomy wires. Cardiomegaly. Coronary artery calci fication. Insert before no small moderate distal esophageal and gastric wall edema Liver: Normal. Biliary/Gallbladder: Gallbladder is normal. No bile duct dilation. Pancreas: No mass or duct dilation. Spleen: Normal. Adrenals:No mass. Kidneys: Subcentimeter right lower kidney hypodensities, too small to characterize but most likely re present cysts. Mild right pelviectasis and ureterectasis. No suspicious mass or obstructing stone. GI tract: No small bowel dilation. Mild dilation of the rectum up to 5.0 cm, with surrounding inflamm atory change presacral edema. Normal appendix. Mild diverticulosis without diverticulitis. Mesentery/Peritoneum: No ascites, mass, or free air. Retroperitoneum: No mass. Atherosclerotic abdominal aortic and/or arterial calcifications. Pelvis: The uterus is surgically absent. Normal appearing urinary bladder. Soft Tissues: Soft tissues and body wall unremarkable. Bones: No acute osseous finding. IMPRESSION: Moderate esophagitis/gastritis. Mild fecal impaction, with findings of proctitis/distal colitis. Paul y stercoral colitis is not excluded. Mild right hydronephrosis, may be chronic, related to ascending infection, or secondary to the perirectal/sigmoid inflammatory changes in the deep pelvis. Reviewed, dictated and finalized at location [facility]. IMPRESSION: Moderate esophagitis/gastritis. Mild fecal impaction, with findings of proctiti s/distal colitis. Early stercoral colitis is not excluded. Mild right hydroneph rosis, may be chronic, related to ascending infection, or secondary to the gail rectal/sigmoid inflammatory changes in the deep pelvis.
[2023-05-05 17:42] VITALS: BP 140/106; PULSE 80; RESP 16; TEMP 36.7; O2SAT 99
[2023-05-05 18:10] VITALS: BP 182/91; PULSE 68; RESP 20; O2SAT 96
[2023-05-05 18:11] LABS: Basophils Absolute Auto 0.1 K/mm3 (0.0-0.1); Basophils Percent Auto 1.1 % (0.2-1.2); Eosinophils Absolute Auto 0.2 K/mm3 (0-0.3); Eosinophils Percent Auto 1.9 % (0-4.4); Hematocrit 41.9 % (37.0-47.0); Hemoglobin 13.5 g/dL (12.0-15.0); Immature Granulocyte Absolute 0.03 K/mm3 (0.00-0.031); Immature Granulocyte Percent A 0.3 % (0-0.5); Lymphocytes Absolute Auto 1.27 K/mm3 (0.9-3.2); Lymphocytes Percent Auto 13.5 % (18.3-44.2); Mean Corpuscular HGB Conc 32.2 g/dl (32-36); Mean Corpuscular Hemoglobin 29.9 pg (26-34); Mean Corpuscular Volume 92.9 fl (80-100); Mean Platelet Volume 10.8 fl (7.4-10.4); Monocytes Absolute Auto 0.8 K/mm3 (0.1-0.6); Monocytes Percent Auto 7.9 % (2.6-8.5); Neutrophils Absolute Auto 7.1 K/mm3 (1.3-6.7); Neutrophils Percent Auto 75.3 % (45.5-73.1); Platelet Count Result 241 k/mm3 (150-375); Red Blood Count 4.51 M/mm3 (4.2-5.4); Red Cell Distribution Width 13.7 % (11.5-14.5); White Blood Count 9.4 K/mm3 (4.5-10.0)
[2023-05-05 18:24] LABS: Alanine Aminotransferase 23 U/L (6-35); Albumin Level 4.7 g/dL (3.5-5.1); Alkaline Phosphatase 89 U/L (38-126); Anion Gap 7 mmol/L (8-16); Aspartate Amino Transferase 30 U/L (14-36); Bilirubin,Total 0.4 mg/dL (0.2-1.3); Blood Urea Nitrogen 17 mg/dL (7-17); Calcium 9.3 mg/dL (8.4-10.2); Carbon Dioxide 29 mmol/L (22-30); Chloride 101 mmol/L (98-107); Glucose 98 mg/dL (65-110); Lipase 69 U/L (23-300); Potassium 4.2 mmol/L (3.4-5.0); Sodium 137 mmol/L (137-145)
[2023-05-05 18:30] LABS: Estimated CRCL calculation 61 ml/min; Estimated Glomerular Filt Rate > 60
[2023-05-05 20:16] VITALS: BP 192/62; PULSE 76; RESP 15; TEMP 36.5; O2SAT 100
--- NOTE | 2023-05-05 20:45 | ED.ABDPAIN ---
HPI - Abdominal Pain General Chief Complaint: Abdominal Pain Stated Complaint: constipation Time Seen by Provider: 05/05/23 18:23 Source: patient and family Mode of arrival: ambulatory Limitations: no limitations History of Present Illness HPI narrative: 73-year-old with a history of A-fib, PVD here with complaints of lower abdominal pain for past 4 days , not had a bowel movement for 4 days now feels nauseated. She denies any vomiting. Not on any narcotic medication. No history of fever or chills. Related Data Home Medications Medication Instructions Recorded Confirmed apixaban 5 mg tablet (Eliquis) 5 mg PO BID 02/03/22 09/12/22 ascorbic acid (vitamin C) 500 mg 500 mg PO DAILY 02/03/22 09/12/22 tablet biotin 2,500 mcg tablet 2,500 mcg PO DAILY 02/03/22 09/12/22 carvedilol 6.25 mg tablet 6.25 mg PO BID 02/03/22 09/12/22 cholecalciferol (vitamin D3) 125 5,000 unit PO DAILY 02/03/22 09/12/22 mcg (5,000 unit) tablet (Vitamin D3) diltiazem HCl 120 mg 120 mg PO BID 02/03/22 09/12/22 capsule,extended release 24 hr esomeprazole magnesium 20 mg 40 mg PO DAILY 02/03/22 09/12/22 capsule,delayed release (Nexium) ferrous sulfate 325 mg (65 mg 325 mg PO DAILY 02/03/22 09/12/22 iron) tablet (Iron (ferrous sulfate)) folic acid 800 mcg tablet 0.8 mg PO DAILY 02/03/22 09/12/22 magnesium 200 mg tablet 400 mg PO DAILY 02/03/22 09/12/22 mecobalamin (vitamin B12) 1,000 1,000 mcg PO DAILY 02/03/22 09/12/22 mcg chewable tablet sertraline 25 mg tablet 25 mg PO DAILY 02/03/22 09/12/22 Allergies Allergy/AdvReac Type Severity Reaction Status Date / Time codeine AdvReac Nausea and Verified 09/12/22 10:01 Vomiting Review of Systems Review of Systems: All systems reviewed & are unremarkable except as noted in HPI and below Constitutional: Constitutional: Reports no additional constitutional complaints Eyes: Eyes: Reports no additional eye complaints ENT: Reports system reviewed and no additional complaints, except as documented Cardiovascular: Cardiovascular: Reports no additional cardiovascular complaints Respiratory: Respiratory: Reports no additional respiratory complaints Gastrointestinal: Gastrointestinal: Reports as per HPI Musculoskeletal: Musculoskeletal: Reports no additional musculoskeletal complaints Integumentary/Breasts: Skin/Breast: Reports system reviewed and no additional complaints, except as docu PMFSH Past Medical History Medical History Atrial fibrillation PVD (peripheral vascular disease) Surgical History Surgical History S/P triple vessel bypass Family History Family History Father CAD (coronary artery disease) Mother CAD (coronary artery disease) Acute myocardial infarction S/P CABG (coronary artery bypass graft) Sibling CAD (coronary artery disease) Acute myocardial infarction Sibling CAD (coronary artery disease) Cerebrovascular accident Sibling CAD (coronary artery disease) Diabetes mellitus Social History Social History Smoking packs per day: 1 Smoking cigarettes per day: 20.0 Years smoked: 15 Smoking pack-years: 15.00 Smoking status: Former smoker Tobacco type: cigarettes Alcohol intake: current Drinks per week: 1 Substance use: never Spiritual care concerns: No Exam Narrative: GENERAL: Well-appearing, well-nourished, and in no acute distress. HEAD: Normocephalic, atraumatic. EYES: PERRLA and EOMI. NECK: Supple. CHEST: Clear to auscultation. No respiratory distress. HEART: Regular rate and rhythm. No murmur heard. Normal peripheral pulses. ABDOMEN: Soft, mild suprapubic tenderness, nondistended, normal active bowel sounds. EXTREMITIES: Normal range of motion. No edema. SKIN: Warm, dry, no rash. NEURO: No fo
[2023-05-05 21:17] LABS: Appearance Urine Clear (Clear); Bacteria Urine None Seen /hpf; Bilirubin Urine Negative (Negative); Blood Urine Negative (Negative); Color Urine Yellow (Yellow); Glucose Urine UA Negative (Negative); Ketones Urine Negative (Negative); Leukocyte Esterase Ur Trace LEU/UL (Negative); Need Manual Microscopic Reviewed; Nitrate Urine Negative (Negative); Non Pathogenic Casts 0-2; Protein Urine Negative (Negative); RBC Urine 0-2 /hpf (0-2); Specific Grav Ur 1.003 (1.001-1.035); Squamous Epithelial Cell Urine None seen /hpf (Few); Urobilinogen Urine 0.2 mg/dL (<2.0); WBC Urine 0-5 /hpf
[2023-05-05 21:18] LABS: Add Urine Microscopic? YES
[2023-05-05 21:32] VITALS: BP 167/82; PULSE 73; RESP 15; TEMP 36.6; O2SAT 97
== END 2023-05-05 21:33 | disposition home or self-care (01) ==
PROVIDERS: Emergency Provider Family Medicine; PCP Internal Medicine
DX: K59.00 Constipation, unspecified (principal); I48.91 Unspecified atrial fibrillation; I73.9 Peripheral vascular disease, unspecified; Z95.1 Presence of aortocoronary bypass graft; Z87.891 Personal history of nicotine dependence; Z79.01 Long term (current) use of anticoagulants; K20.90 Esophagitis, unspecified without bleeding; K29.70 Gastritis, unspecified, without bleeding
CPT/HCPCS: 36415; 74177; 80053; 81001; 83690; 85025; 99284; Q9967

== ENCOUNTER 2023-10-02 11:48 | Outpatient (CLI) | payer MEDICARE, SELFPAY ==
[2023-10-02 12:06] LABS: Basophils Absolute Auto 0.1 K/mm3 (0.0-0.1); Eosinophils Absolute Auto 0.2 K/mm3 (0-0.3); Eosinophils Percent Auto 2.9 % (0-4.4); Hematocrit 42.8 % (37.0-47.0); Hemoglobin 13.8 g/dL (12.0-15.0); Immature Granulocyte Absolute 0.02 K/mm3 (0.00-0.031); Immature Granulocyte Percent A 0.3 % (0-0.5); Lymphocytes Absolute Auto 1.44 K/mm3 (0.9-3.2); Lymphocytes Percent Auto 20.2 % (18.3-44.2); Mean Corpuscular HGB Conc 32.2 g/dl (32-36); Mean Corpuscular Hemoglobin 30.6 pg (26-34); Mean Corpuscular Volume 94.9 fl (80-100); Mean Platelet Volume 10.4 fl (7.4-10.4); Monocytes Absolute Auto 0.7 K/mm3 (0.1-0.6); Monocytes Percent Auto 9.5 % (2.6-8.5); Neutrophils Absolute Auto 4.6 K/mm3 (1.3-6.7); Neutrophils Percent Auto 65.1 % (45.5-73.1); Platelet Count Result 218 k/mm3 (150-375); Red Blood Count 4.51 M/mm3 (4.2-5.4); White Blood Count 7.1 K/mm3 (4.5-10.0)
[2023-10-02 13:15] LABS: Iron 93 ug/dL (37-170)
[2023-10-02 13:18] LABS: Anion Gap 13 mmol/L (8-16); Blood Urea Nitrogen 23 mg/dL (7-17); Calcium 9.3 mg/dL (8.4-10.2); Carbon Dioxide 26 mmol/L (22-30); Chloride 103 mmol/L (98-107); Estimated Glomerular Filt Rate > 60; Glucose 100 mg/dL (65-110); Potassium 4.1 mmol/L (3.4-5.0); Sodium 142 mmol/L (137-145)
[2023-10-02 13:34] LABS: Percent Iron Saturation 26 % (20-50)
[2023-10-02 14:25] LABS: Folic Acid > 20.0 ng/mL (2.76->20)
== END 2023-10-02 11:49 | disposition home or self-care (01) ==
LOC: ANHLAB 11:50
PROVIDERS: PCP Internal Medicine; Visit Provider Internal Medicine Hematology & Oncology
DX: D64.9 Anemia, unspecified (principal)
CPT/HCPCS: 36415; 80048; 82607; 82728; 82746; 83540; 83550; 85025

== ENCOUNTER 2023-10-10 17:15 | Emergency (ER) | payer MEDICARE, SELFPAY ==
[2023-10-10 17:23] VITALS: BP 158/103; PULSE 80; RESP 18; TEMP 36.4; O2SAT 99
--- NOTE | 2023-10-10 19:04 | PC.NURSE ---
Patient had pressure dressing placed in triage and has bled through. Provider made aware and a new pressure dressing placed on patient's finger
--- NOTE | 2023-10-10 20:45 | PC.NURSE ---
Patient continues to hole pressure on wound with no luck in getting bleeding controlled. VALENTINA Azar aware that patient continues to bleed through every bandage put on patient's finger. PA gave verbal order to place a finger tourniquet on patient's bleeding digit. Patient's is verbally upset and states this is ridiculous we have been sitting here this long . This RN apologized for wait time.
--- NOTE | 2023-10-10 20:59 | PC.NURSE ---
Bleeding slowed after placing tourniquet on patient's finger.
[2023-10-10 21:52] VITALS: BP 188/86; PULSE 78; RESP 18; TEMP 36.8; O2SAT 99
--- NOTE | 2023-10-10 21:52 | PC.NURSE ---
Bleeding controlled at this time.
[2023-10-10] MEDS: SILVER NITRATE (*SP) STICK 1 EACH (21:53)
[2023-10-10] MEDS: LIDOCAINE HCL 1% LOCAL INJ 10 ML VIAL (21:53)
--- NOTE | 2023-10-10 22:16 | ED.WOUNDLAC ---
HPI - Wound/Laceration General Chief Complaint: Wound/Laceration Stated Complaint: laceration Time Seen by Provider: 10/10/23 20:08 History of Present Illness HPI narrative: 73 y/o F who is chronically anticoagulated with Eliquis for atrial fibrillation reports to the emergency department for a skin avulsion to her right 4th finger that occurred just prior to arrival. Patient states she was using a potato slicer and accidentally cut herself with the spokes on the potato slicer prior to arrival. States she was unable to get the bleeding controlled so she came to the ED. reports her tetanus is up-to-date. Denies other injury. Related Data Home Medications Medication Instructions Recorded Confirmed apixaban 5 mg tablet (Eliquis) 5 mg PO BID 02/03/22 09/12/22 ascorbic acid (vitamin C) 500 mg 500 mg PO DAILY 02/03/22 09/12/22 tablet biotin 2,500 mcg tablet 2,500 mcg PO DAILY 02/03/22 09/12/22 carvedilol 6.25 mg tablet 6.25 mg PO BID 02/03/22 09/12/22 cholecalciferol (vitamin D3) 125 5,000 unit PO DAILY 02/03/22 09/12/22 mcg (5,000 unit) tablet (Vitamin D3) diltiazem HCl 120 mg 120 mg PO BID 02/03/22 09/12/22 capsule,extended release 24 hr esomeprazole magnesium 20 mg 40 mg PO DAILY 02/03/22 09/12/22 capsule,delayed release (Nexium) ferrous sulfate 325 mg (65 mg 325 mg PO DAILY 02/03/22 09/12/22 iron) tablet (Iron (ferrous sulfate)) folic acid 800 mcg tablet 0.8 mg PO DAILY 02/03/22 09/12/22 magnesium 200 mg tablet 400 mg PO DAILY 02/03/22 09/12/22 mecobalamin (vitamin B12) 1,000 1,000 mcg PO DAILY 02/03/22 09/12/22 mcg chewable tablet sertraline 25 mg tablet 25 mg PO DAILY 02/03/22 09/12/22 Allergies Allergy/AdvReac Type Severity Reaction Status Date / Time codeine AdvReac Nausea and Verified 10/10/23 17:28 Vomiting Review of Systems Review of Systems: CONSTITUTIONAL: Denies fever, chills, or sweats. EYES: Denies visual changes, redness, or discharge. ENT: Denies rhinorrhea, congestion, sore throat, or otalgia. CARDIOVASCULAR: Denies chest pain, palpitations, or edema. RESPIRATORY: Denies cough or dyspnea. GASTROINTESTINAL: Denies abdominal pain, nausea, vomiting, or diarrhea. GENITOURINARY: Denies dysuria or hematuria. SKIN: See HPI MUSCULOSKELETAL: Denies back pain, joint pain, or myalgia. NEUROLOGIC: Denies headache, numbness, or weakness. PSYCHIATRIC: Denies anxiety or depression. [facility] Past Medical History Medical History Atrial fibrillation PVD (peripheral vascular disease) Surgical History Surgical History S/P triple vessel bypass Family History Family History Father CAD (coronary artery disease) Mother CAD (coronary artery disease) Acute myocardial infarction S/P CABG (coronary artery bypass graft) Sibling CAD (coronary artery disease) Acute myocardial infarction Sibling CAD (coronary artery disease) Cerebrovascular accident Sibling CAD (coronary artery disease) Diabetes mellitus Social History Social History Smoking packs per day: 1 Smoking cigarettes per day: 20.0 Years smoked: 15 Smoking pack-years: 15.00 Smoking status: Former smoker Tobacco type: cigarettes Alcohol intake: current Drinks per week: 1 Substance use: never Spiritual care concerns: No Exam Narrative: GENERAL: Well-appearing, well-nourished, and in no acute distress. HEAD: Normocephalic, atraumatic. EYES: PERRLA and EOMI. ENT: Nares clear, no rhinorrhea or epistaxis. Mucous membranes moist. NECK: Supple. CHEST: Clear to auscultation. No respiratory distress. HEART: Regular rate and rhythm. No murmur heard. Normal peripheral pulses. EXTREMITIES: Normal range of motion. No edema. SKIN: <0.5cm skin avulsion to the pad of the right 4
== END 2023-10-10 22:37 | disposition home or self-care (01) ==
PROVIDERS: Emergency Provider Physician Assistant; PCP Internal Medicine
DX: S61.214A Laceration without foreign body of right ring finger without damage to nail, initial encounter (principal); R03.0 Elevated blood-pressure reading, without diagnosis of hypertension; I48.91 Unspecified atrial fibrillation; Z79.01 Long term (current) use of anticoagulants; Z87.891 Personal history of nicotine dependence; W27.4XXA Contact with kitchen utensil, initial encounter
CPT/HCPCS: 12001; 99283

== ENCOUNTER 2024-01-07 22:27 | Observation (INO) | payer MEDICARE, SELFPAY ==
--- NOTE | ~2024-01-07 | XR_ITS ---
Clinical Indication: Chest pain PA and lateral views of the chest: Comparison: 02/03/2022 Findings: The lungs are clear, without evidence of focal consolidation or pleural effusion. Cardiome diastinal silhouette is stable. There are mild compression deformities of T5 and T6. Impression: Clear lungs. Mild compression fractures of T5 and T6. Reviewed, dictated and finalized at location . 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 Mild compression fractures of T5 and T6.
--- NOTE | ~2024-01-07 | CT_ITS ---
Clinical Indication: Chest pain CT Scan of the Chest with Contrast: Technique: Contiguous sections were acquired throughout the chest after intravenous administration of 100 cc of Omnipaque 350. Dose reduction technique was used on this scan by utilizing automated expos ure control and iterative reconstruction technique. The dose-length product (DLP) was 205.65 mGy-cm. COMPARISON: 05/05/2023 Findings: There is no evidence of any significant mediastinal, hilar or axillary lymphadenopathy. There is no f illing defect in the pulmonary arterial tree to suggest pulmonary embolus. There is no evidence of ao rtic dissection or aneurysm. Atherosclerotic calcifications of the aorta are present. Cardiomegaly no bisi. There is no evidence of pleural or pericardial effusion. The lungs are clear, aside from minimal dependent atelectatic changes. Images through the upper abdomen reveal atherosclerotic change of aorta probable stenoses at the orig in of the celiac and SMA arteries. Mild compression fractures of T5 and T6 are present. There are hyp odense areas in the spleen, largest measuring up to 2.9 cm in diameter, noncystic. Impression: No evidence of pulmonary embolus, aortic dissection, or aortic aneurysm. Extensive atherosclerotic calcification of the aorta. Probable stenoses at the origin of the celiac a rtery and SMA. Mild compression fractures of T5 and T6. Hypodense regions in the spleen, indeterminate, but new from prior exam. Neoplastic lesions are not e xcluded. Consider additional workup as indicated. Reviewed, dictated and finalized at [facility]. 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 Extensive atherosclerotic calcification of the aorta. 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 Mild compression fractures of T5 and T6. Hypodense regions in the spleen, indeterminate, but new from prior exam. Neopla stic lesions are not excluded. Consider additional workup as indicated.
--- NOTE | ~2024-01-07 | NM_ITS ---
EXAMINATION: NM flash stress w perfusion DATE: 01/09/2024 11:50 INDICATION: Chest pain. Coronary artery disease. TECHNIQUE: Rest images were obtained following intravenous administration of 10.6 mCi Tc99m tetrofosm in (Myoview). The patient was infused intravenously with Lexiscan (Regadenoson). Then, 33.7 mCi Tc99m tetrofosmin (Myoview) was administered intravenously, and stress images were obtained. Data was lis nstructed into short axis and horizontal and vertical long axis SPECT images. Gated SPECT images were also obtained. COMPARISON: None. FINDINGS: There is no definite reversible or fixed perfusion abnormality to suggest ischemia or infar ction. There is normal left ventricular chamber size, wall motion and ejection fraction. Left ventr icular ejection fraction measures 67%. IMPRESSION: 1. Normal myocardial perfusion at rest and during stress. 2. Left ventricular ejection fraction measuring 67%. Reviewed, dictated and finalized at location A. 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
--- NOTE | ~2024-01-07 | CT_ITS ---
EXAMINATION: CT abdomen pelvis wo/w con DATE: 01/09/2024 20:09 INDICATION: epigastric pain, spleen lesion TECHNIQUE: Computed tomography (CT) of the abdomen and pelvis was performed without and with with 100 mL Omnipaque-350 intravenous contrast. Automated exposure control and iterative reconstruction techn ique were employed. The dose-length product was 736.30 mGy-cm. COMPARISON: 05/05/2023; CTA chest 11/07/2024. FINDINGS: Lower thorax: Bibasilar scar. Prior cardiothoracic surgery. Mild cardiomegaly. Liver: Normal. Biliary/Gallbladder: Gallbladder is normal. No bile duct dilation. Pancreas: No mass or duct dilation. Spleen: Normal. Adrenals:No mass. Kidneys: No suspicious mass, obstructing stone, or hydronephrosis. Scattered bilateral nonobstructing calculi. Likely right lower pole simple cyst. GI tract: Moderate distal esophageal and gastric wall edema No small or large bowel dilation. Normal appendix. Diverticulosis without diverticulitis. Mesentery/Peritoneum: No ascites, mass, or free air. Retroperitoneum: No mass. Atherosclerotic abdominal aortic and/or arterial calcifications. Patent rig ht common iliac stent. Short segment dissection in the left external iliac artery. Severe stenosis at the bifurcation of the left internal and external iliac arteries. Pelvis: The urinary bladder is empty. Absent uterus. Soft Tissues: Soft tissues and body wall unremarkable. Bones: No acute osseous finding. IMPRESSION: No splenic lesion identified. Consider directed sonographic evaluation of the spleen and/or MRI of th e abdomen for further evaluation. Moderate esophagitis/gastritis. Severe stenosis at the bifurcation of the left internal and external iliac arteries. Short segment le ft external iliac artery dissection. Reviewed, dictated and finalized at location [facility] [employer] IMPRESSION: No splenic lesion identified. Consider directed sonographic evaluation of the s pleen and/or MRI of the abdomen for further evaluation. Moderate esophagitis/gastritis. Severe stenosis at the bifurcation of the left internal and external iliac hilario elba. Short segment left external iliac artery dissection.
[2024-01-07 22:27] VITALS: PULSE 81; RESP 19; TEMP 36.8; O2SAT 97
--- NOTE | 2024-01-07 22:30 | PC.NURSE ---
Pt has nitro transdermal patch from home on right side of upper chest.
[2024-01-07 22:34] VITALS: BP 184/73; PULSE 84; PULSE 85; RESP 19; TEMP 36.8; O2SAT 99
--- NOTE | 2024-01-07 22:36 | ECG_ITS ---
Measurements Intervals [place] Rate: 83 P: MA: 0 QRS: 79 QRSD: 90 T: 16 QT: 378 QTc: 445 Interpretive Statements ATRIAL FIBRILLATION NONSPECIFIC ST AND T WAVE ABNORMALITY COMPARED TO ECG 02/03/2022 17:45:57 NO SIGNIFICANT CHANGES Electronically Signed On 01-08-2024 12:38:18 [employer]NAG[employer] by María Nichols M.D.
[2024-01-07 22:59] LABS: Basophils Absolute Auto 0.1 K/mm3 (0.0-0.1); Basophils Percent Auto 1.1 % (0.2-1.2); Eosinophils Absolute Auto 0.4 K/mm3 (0-0.3); Eosinophils Percent Auto 3.8 % (0-4.4); Hematocrit 38.9 % (37.0-47.0); Hemoglobin 12.7 g/dL (12.0-15.0); Immature Granulocyte Absolute 0.03 K/mm3 (0.00-0.031); Immature Granulocyte Percent A 0.3 % (0-0.5); Lymphocytes Absolute Auto 1.89 K/mm3 (0.9-3.2); Lymphocytes Percent Auto 19.4 % (18.3-44.2); Mean Corpuscular HGB Conc 32.6 g/dl (32-36); Mean Corpuscular Hemoglobin 30.6 pg (26-34); Mean Corpuscular Volume 93.7 fl (80-100); Mean Platelet Volume 10.5 fl (7.4-10.4); Monocytes Absolute Auto 0.9 K/mm3 (0.1-0.6); Monocytes Percent Auto 9.5 % (2.6-8.5); Neutrophils Absolute Auto 6.4 K/mm3 (1.3-6.7); Neutrophils Percent Auto 65.9 % (45.5-73.1); Platelet Count Result 213 k/mm3 (150-375); Red Blood Count 4.15 M/mm3 (4.2-5.4); Red Cell Distribution Width 13.6 % (11.5-14.5); White Blood Count 9.7 K/mm3 (4.5-10.0)
[2024-01-07 23:15] LABS: Alanine Aminotransferase 17 U/L (6-35); Albumin Level 4.1 g/dL (3.5-5.1); Alkaline Phosphatase 66 U/L (38-126); Anion Gap 6 mmol/L (8-16); Aspartate Amino Transferase 33 U/L (14-36); Bilirubin,Total 0.8 mg/dL (0.2-1.3); Blood Urea Nitrogen 23 mg/dL (7-17); Calcium 9.4 mg/dL (8.4-10.2); Carbon Dioxide 27 mmol/L (22-30); Chloride 103 mmol/L (98-107); Estimated CRCL calculation 60 ml/min; Estimated Glomerular Filt Rate > 60; Glucose 85 mg/dL (65-110); Lipase 64 U/L (23-300); Potassium 4.4 mmol/L (3.4-5.0); Sodium 136 mmol/L (137-145)
[2024-01-07 23:18] LABS: INR 1.1; Partial Thromboplastin Time 32.9 SECONDS (22.3-36.8); Prothrombin Time 15.2 Seconds (11.1-14.7)
[2024-01-07 23:22] LABS: Troponin I < 0.012 ng/mL (0.000-0.034)
[2024-01-07 23:27] LABS: D Dimer 0.41 ug/mL (<0.48)
[2024-01-07] MEDS: SODIUM CHLORIDE 0.9% IV 1,000 ML 999 ML IV CONT (23:43)
[2024-01-07 23:45] VITALS: BP 192/97; PULSE 86; RESP 19; O2SAT 99
--- NOTE | 2024-01-07 23:50 | ED.CHESTPAIN ---
HPI - Chest Pain General Chief Complaint: Chest Pain Stated Complaint: CP, SOB Time Seen by Provider: 01/07/24 22:51 Source: patient Limitations: no limitations History of Present Illness HPI narrative: Patient is a 73-year-old female presents to the emergency depart complaining of chest pain accompanied by her . Patient states the pain started around 9:00 p.m. while she was having a stressful movement with air offspring, patient notes that the pain has been coming and going however over or getting worse, rest to have similar history of this pain in the past but has not been this bad, describes the pain as a pressure, states it is in the middle of her chest in addition to between her shoulder blades and seems to radiate back to her shoulder blades, admits to being slightly worse with exertion, admits to taking a nitro patch which she has on currently and does not seem to be helping much. 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 Patient has a known history of AFib and is on blood thinners and taking them as prescribed and taking all her medications as prescribed. Patient denies any recent injuries, recent illness, fever, nausea, vomiting, diarrhea, melena, hematochezia, abdominal pain, urinary discomfort, numbness, weakness, history of blood clots, unilateral lower extremity swelling, shortness of breath. Patient admits to a mild cough with minimal weight sputum production. Patient admits to some slight lightheadedness when she stands up. Related Data Home Medications Medication Instructions Recorded Confirmed apixaban 5 mg tablet (Eliquis) 5 mg PO BID 02/03/22 01/08/24 ascorbic acid (vitamin C) 500 mg 500 mg PO DAILY 02/03/22 09/12/22 tablet biotin 2,500 mcg tablet 2,500 mcg PO DAILY 02/03/22 09/12/22 carvedilol 6.25 mg tablet 6.25 mg PO BID 02/03/22 01/08/24 cholecalciferol (vitamin D3) 125 5,000 unit PO DAILY 02/03/22 09/12/22 mcg (5,000 unit) tablet (Vitamin D3) diltiazem HCl 120 mg 120 mg PO BID 02/03/22 09/12/22 capsule,extended release 24 hr esomeprazole magnesium 20 mg 40 mg PO DAILY 02/03/22 09/12/22 capsule,delayed release (Nexium) ferrous sulfate 325 mg (65 mg 325 mg PO DAILY 02/03/22 09/12/22 iron) tablet (Iron (ferrous sulfate)) folic acid 800 mcg tablet 0.8 mg PO DAILY 02/03/22 09/12/22 magnesium 200 mg tablet 400 mg PO DAILY 02/03/22 09/12/22 mecobalamin (vitamin B12) 1,000 1,000 mcg PO DAILY 02/03/22 09/12/22 mcg chewable tablet sertraline 25 mg tablet 25 mg PO DAILY 02/03/22 09/12/22 atorvastatin 40 mg tablet 40 mg PO HS 01/08/24 01/08/24 clopidogrel 75 mg tablet (Plavix) 75 mg PO DAILY 01/08/24 01/08/24 furosemide 20 mg tablet (Lasix) 20 mg PO DAILY 01/08/24 01/08/24 sacubitril 24 mg-valsartan 26 mg 1 tablet PO BID 01/08/24 01/08/24 tablet (Entresto) Allergies Allergy/AdvReac Type Severity Reaction Status Date / Time codeine AdvReac Nausea and Verified 01/07/24 22:38 Vomiting Review of Systems Review of Systems: A 10 system review of systems was completed on the patient and is negative except for what is stated in the HPI. Nursing and ancillary documentation was reviewed. [facility] Past Medical History Medical History Atrial fibrillation PVD (peripheral vascular disease) Surgical History Surgical History S/P triple vessel bypass Family History Family History Father CAD (coronary artery disease) Mother CAD (coronary artery disease) Acute myocardial infarction S/P CABG (coronary artery bypass graft) Sibling CAD (coronary artery disease) Acute myocardial infarction Sibling CAD (coronary artery disease) Cerebrovascular accident Sibling CAD (coron
[2024-01-07 23:57] LABS: Magnesium 2.1 mg/dL (1.6-2.3)
[2024-01-08] VITALS (24 sets, daily range): BP systolic 112–171; BP diastolic 42–83; PULSE 64–93; RESP 16–20; TEMP 36.2–36.6; O2SAT 95–99; BMI 24.6
[2024-01-08] MEDS: FAMOTIDINE 20 MG/2 ML VIAL IV PUSH (00:27)
[2024-01-08 00:31] LABS: Influenza A QL RT-PCR Negative (Negative); Influenza B QL RT-PCR Negative (Negative); RSV RNA, RT-PCR Negative (Negative); SARS-CoV-2 RNA PCR Negative (Negative)
[2024-01-08] MEDS: ATORVASTATIN 40 MG TABLET PO ×2 (02:08→20:37)
[2024-01-08] MEDS: APIXABAN 5 MG TABLET PO ×2 (02:08→22:42)
[2024-01-08] MEDS: carvediloL 6.25 MG TABLET PO (02:09)
[2024-01-08] MEDS: SACUBITRIL/VALSARTAN 24-26 MG TABLET 1 TAB PO ×3 (02:09→20:37)
[2024-01-08 03:49] LABS: Troponin I < 0.012 ng/mL (0.000-0.034)
[2024-01-08] MEDS: NITROGLYCERIN SL 0.4 MG TABLET SUBLINGUAL ×8 (05:28→23:29)
--- NOTE | 2024-01-08 05:50 | PC.NURSE ---
Pt received bed number while this RN was in the lab picking up blood products for another pt. Report to be called after blood products are administered.
[2024-01-08 06:19] LABS: Troponin I < 0.012 ng/mL (0.000-0.034)
[2024-01-08] MEDS: ACETAMINOPHEN 500 MG TABLET 1000 MG PO (06:38)
--- NOTE | 2024-01-08 06:59 | ADMGEN ---
This patient, Karen Martinez, was admitted to IMU Room 205-01. Patient/family oriented to hospital policies and general routines including ID bracelet, bed and alarms, visiting hours, pain management, procedures, bathroom and other care routines, personal items, smoking policy, room service/diet, and visiting hours. Information on how to activate the Rapid Response Team has been discussed. Patient/Family are encouraged to report perceived risks to care and to ask questions if they do not understand what they are told or what they should do.
--- NOTE | 2024-01-08 08:59 | PM.IMHP ---
H&P: HPI History of Present Illness Date/Time: 01/08/24 08:59 Chief Complaint: Chest pain Narrative: 73yo female with CAD, PVD and HTN here for chest pain. Patient has a hx of CABG in 1998 but required a re-do in 1999 x 3v. She follows with Dr Manley and Dr Chang. She was seen here in January 2022 for STEMI and PNA. LHC was attempted but unable to access femoral approach. She was transferred to another facility and underwent LHC with stent placement (she is not sure how may stents). She suffered a CVA during that hospitalization resulting in left eye partial vision loss but no focal weakness. She no longer drives. She had a LHC in September 2023 that was 'clear' by Dr Manley (but he is a neurosurgeon and appears to have done a cerebral angiogram?). She was doing well up until around Damian when she began to have chest pain. It would be usually one episode that resolved with NTG. Symptoms persisted and she was started on NTP by Dr Chang about 2 weeks ago with plans for a stress test in January. She remained chest pain free up until the night before admission when she had recurrent chest pain after arguing with her daughter. She took a NTG SL and laid down with resolution of her symptoms. On the morning of admission, she again developed chest pain with walking up a flight of stairs and with a coughing fit. She Has had a cough for about a week but no post-nasal drainage, rhinorrhea, fever or chills. Cough is nonproductive. She states the chest pain feels like 'someone pushing' mid chest that radiates to the back. No radiation to the arm or neck. Chest pain associated with nausea, SOB and diaphoresis. Chest pain also is pleuritic at times. No vomiting, abdominal pain, dysuria, hematuria, melena hematochezia. No new medications. She does have chronic headaches related to her stroke in the past. She is compliant with her home medications. Patient presented to the emergency room for evaluation. In the emergency room, blood pressure was elevated to 192/97. COVID, influenza and RSV PCR were negative. Troponin was negative x3. CMP was normal except for sodium 136 and a BUN of 23. D-dimer and CBC were normal. CTA of the chest showed no PE, aortic dissection or aortic aneurysm. She had extensive atherosclerosis of the aorta and possible stenosis at the origin of the celiac artery and SMA. She had mild compression fractures of T5 and T6. There is a hypodense region in the spleen which is indeterminate but new from a year ago. EKG shows AFib with controlled rate and moderate ST depression in the inferior leads. Treated with pepcid, NS, Coreg, Eliquis, Entresto, Lipitor and NTP. She was admitted for further care. Review of Systems Review of Systems: All systems reviewed & are unremarkable except as noted in HPI and below PMFSH Past Medical History Medical History Atrial fibrillation B12 deficiency CAD (coronary artery disease) CABG x2. Stents placed 2021. 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 Vertebral artery stents. Surgical History Surgical History Breast lump in female s/p lumpectomy; noncancerous H/O section x2 S/P MARYELLEN-BSO Noncancerous. S/P triple vessel bypass CABG in 1998 and redo 1999 Family History Family History Father CAD (coronary artery disease) Mother CAD (coronary artery disease) Acute myocardial infarction S/P CABG (coronary artery bypass graft) Sibling CAD (coronary artery disease) Acute myocardial infarction Sibling CAD (coronary artery disease) Cerebrovascular accident Sibling CAD (coron
[2024-01-08 10:37] LABS: Albumin Level 3.9 g/dL (3.5-5.1); Anion Gap 6 mmol/L (8-16); Blood Urea Nitrogen 17 mg/dL (7-17); Calcium 9.1 mg/dL (8.4-10.2); Carbon Dioxide 27 mmol/L (22-30); Chloride 105 mmol/L (98-107); Cholesterol 131 mg/dL (0-200); Estimated CRCL calculation 52 ml/min; Estimated Glomerular Filt Rate > 60; Glucose 105 mg/dL (65-110); HDL Direct 73 mg/dL; Magnesium 2.1 mg/dL (1.6-2.3); Phosphorus 3.3 mg/dL (2.5-4.5); Potassium 4.3 mmol/L (3.4-5.0); Sodium 138 mmol/L (137-145); Triglycerides 86 mg/dL (<150)
[2024-01-08 10:47] LABS: LDL Cholesterol Direct 45 mg/dL
--- NOTE | 2024-01-08 11:28 | PM.CNCAR ---
Assessment and Plan Assessment and plan (1) Chest pain: Qualifiers: Chest pain type: unspecified Qualified Code(s): R07.9 - Chest pain, unspecified Code(s): R07.9 - Chest pain, unspecified Status: Acute Assessment and Plan: consistent with unstable angina. Patient is at high risk for coronary angiogram. She did have a angiogram in 2020 which resulted in a stroke. At this point, plan will be to risk assess her coronaries by performing a Lexiscan myocardial perfusion study and to up titrate medications for better blood pressure control. Cannot actually add Ranexa to if need be depending on the results of the stress test. If a angiogram is needed, she will need to be transferred to [facility]. Will keep NPO after midnight (2) CAD (coronary artery disease): Code(s): I25.10 - Atherosclerotic heart disease of [place] coronary artery without angina pectoris Status: Acute Assessment and Plan: continue carvedilol, clopidogrel, atorvastatin, Entresto, nitro patch. Will increase her carvedilol to 12.5 mg p.o. b.i.d. and add a calcium channel yumiko in the form of amlodipine 2.5 mg daily and up titrate as need be Or able (3) Essential hypertension: Code(s): I10 - Essential (primary) hypertension Status: Acute Assessment and Plan: as detailed above (4) Atrial fibrillation: Qualifiers: Atrial fibrillation type: unspecified Qualified Code(s): I48.91 - Unspecified atrial fibrillation Code(s): I48.91 - Unspecified atrial fibrillation Status: Acute Assessment and Plan: on Eliquis. Rate control strategy History of Present Illness History of Present Illness Consult date/time: 01/08/24 11:28 Requesting physician: Warner Abreu DO Consult reason: chest pain Reason For Visit: Chest Pain Narrative: Date of service 01/08/2024 Reason for consultation: Chest pain Requesting provider: Dr. Abreu History patient is a 73-year-old female who has a history of severe vascular disease involving her entire vascular tree. She has a history of CABG in 1998 and redo CABG in 1999. She follows [address] Chang and was scheduled for what sounds to be a exercise PET scan next month. Patient states she started to develop some worsening chest pain in October. She was started on a nitro patch. This did seem to help temporarily but since Friday she has been having more significant chest pains. Chest pains last for 30 minutes at a time and is described as epigastric pain radiating to her back. It is associated shortness of breath. It is improved with nitroglycerin. She came to the hospital because of these episodes and has ruled out for myocardial infarction. Blood pressure has been high. She states that she had some emotional stress and an argument with her daughter on Friday which prompted the initial episode. She did have a recent angiogram by Dr. Manley at [facility]. She currently is pain-free. She has had no recent syncope, presyncope, palpitations, edema. Review of Systems Review of Systems: All systems reviewed & are unremarkable except as noted in HPI and below Constitutional: Constitutional: Denies body ache(s) Eyes: Eyes: Denies blurry vision ENT: Reports Normal hearing present Cardiovascular: Cardiovascular: Reports chest pain and Denies pedal edema Respiratory: Respiratory: Reports dyspnea Gastrointestinal: Gastrointestinal: Denies abdominal pain Genitourinary: Genitourinary: Denies hematuria Musculoskeletal: Musculoskeletal: Denies back pain Integumentary/Breasts: Skin/Breast: Denies erythema Neurologic: Denies Abnormal speech present Psychiatric: Psychiatric: Denies anxiety Endocrine: Endocrine: Denies excessive sweating Hematologic/Lymphatic: Hematologic/Lymphatic: Denies easy bleeding Allergic/Immunologic: Allergic/Immunologic: Denies GI upset with certain foods PMFSH Past Medical History Medical Histo
[2024-01-08] MEDS: MAGNESIUM OXIDE 200 MG TABLET PO (11:41)
[2024-01-08] MEDS: guaiFENesin 12 HR 600 MG TABCR PO ×2 (11:41→20:37)
[2024-01-08] MEDS: CLOPIDOGREL BISULFATE 75 MG TABLET PO (11:41)
[2024-01-08] MEDS: FERROUS SULFATE 325 MG TABLET DR BY MOUTH (11:41)
[2024-01-08] MEDS: ASCORBIC ACID 500 MG TABLET PO (11:41)
[2024-01-08] MEDS: FUROSEMIDE 20 MG TABLET PO (11:41)
[2024-01-08] MEDS: SERTRALINE HCL 25 MG TABLET PO (11:41)
[2024-01-08] MEDS: NITROGLYCERIN 0.4 MG/HR PATCH 1 PATCH TRANSDERM (11:42)
[2024-01-08 11:55] LABS: Folic Acid > 20.0 ng/mL (2.76->20)
[2024-01-08] MEDS: amLODIPine BESYLATE 2.5 MG TABLET PO (12:10)
--- NOTE | 2024-01-08 15:32 | PC.NURSE ---
Pt called out complaining of pain. RN to bedside to assess. Pt states It hurts right here (clinching middle of chest) and is going straight through to my back. BP & pulse obtained. Pt give SL Nitro 0.4 mg at 1532 BP 156/71 P-75. Pt still complaining of pain. Second dose of SL Nitro given at 1537, BP 153/63, P-72. Third dose of SL Nitro given at 1543, BP 155/58 P-77. Assessment 5 minutes after administration of 3 doses of 0.4mg SL Nitro pt stated It's feeling better. Pain is finally easing up this time. notified.
--- NOTE | 2024-01-08 17:33 | PC.NURSE ---
RN called to pt's room with pt complaints of chest pain in the middle of her chest. Pt describes pain as a stabbing rating it at a 9. HR 86, BP 112/61. 0.4mg SL Nitro given at 1732. Reassessment done at 1737 and pt 167/61. RN able to reach Dr. Gutierrez. Dr. Gutierrez notified and at bedside to assess pt. New orders received. Pt's BP 159/65
[2024-01-08] MEDS: LORazepam (*CRX) 0.5 MG TABLET PO ×2 (17:46→22:42)
--- NOTE | 2024-01-08 17:53 | ECG_ITS ---
Measurements Intervals [facility] Rate: 82 P: ME: 0 QRS: 69 QRSD: 86 T: -9 QT: 406 QTc: 475 Interpretive Statements ATRIAL FIBRILLATION MODERATE ST DEPRESSION [0.05+ mV ST DEPRESSION] ABNORMAL QRS-T ANGLE [QRS-T AXIS DIFFERENCE > 60] ABNORMAL ECG INTERPRETATION BASED ON A DEFAULT AGE OF 40 YEARS COMPARED TO ECG 01/07/2024 22:37:44 NO SIGNIFICANT CHANGES Electronically Signed On 01-09-2024 15:04:10 BUSINESS DEVELOPMENT INTERN by Gildardo Isidro M.D.
[2024-01-08] MEDS: MAG HYDROX/AL HYDROX/SIMETH 30 ML UDC PO (17:59)
[2024-01-08] MEDS: NITROGLYCERIN OINTMENT 1 INCH DOSE TRANSDERM ×2 (17:59→22:42)
[2024-01-08 19:28] LABS: Troponin I < 0.012 ng/mL (0.000-0.034)
[2024-01-08] MEDS: carvediloL 12.5 MG TABLET PO (20:37)
[2024-01-08 21:10] LABS: Troponin I < 0.012 ng/mL (0.000-0.034)
[2024-01-08] MEDS: PANTOPRAZOLE 40 MG TABLET PO (22:41)
[2024-01-08] MEDS: LEVOTHYROXINE SODIUM 50 MCG TABLET PO (22:42)
[2024-01-08] MEDS: ACETAMINOPHEN 325 MG TABLET 650 MG PO (23:21)
[2024-01-09] VITALS (14 sets, daily range): BP systolic 115–152; BP diastolic 42–58; PULSE 59–111; RESP 10–20; TEMP 36.4–37.7; O2SAT 96–99
--- NOTE | 2024-01-09 | ECHO_ITS ---
Patient Info Name: Karen Martinez Age: 73 years : 1950 Gender: Female Ht: 60 in Wt: 126 lbs BSA: 1.57 m2 HR: 64 bpm BP: 152 / 52 mmHg Heart Rhythm: Sinus Rhythm Technical Quality: Good Exam Date: 01/09/2024 8:57 AM Exam Location: Echo Lab Patient Status: Inpatient Admit Date: 01/08/2024 Staff Ordering Physician: Turner Gutierrez MD Etiquette Teacher: Leticia Jack RDCS Attending Provider: Stacey Flynn DO Exam Type: CA echo doppler color flow Study Info Indications R07.9 - Chest pain, unspecified Complete two-dimensional, color flow and Doppler transthoracic echocardiogram is performed. Summary 1. Complete two-dimensional, color flow and Doppler transthoracic echocardiogram is performed. 2. Left ventricular chamber dimension is normal. 3. Left ventricular systolic function is normal, estimated at 65-70%. 4. There is no increased left ventricular wall thickness. 5. The left ventricular diastolic function is abnormal. 6. The basal inferior wall, mid inferior wall, basal inferolateral wall, and mid inferolateral wall are hypokinetic. 7. Right ventricular chamber dimension is mildly enlarged. 8. Right atrial chamber dimension is severely enlarged. 9. Left atrial chamber dimension is severely enlarged. 10. There is moderate aortic valve calcification. 11. There is mild mitral valve regurgitation. 12. There is mild tricuspid valve regurgitation. 13. Moderate pulmonary hypertension, estimated pulmonary arterial systolic pressure is 52 mmHg. Left Ventricle Left ventricular chamber dimension is normal. Left ventricular systolic function is normal, estimated at 65-70%. There is no increased left ventricular wall thickness. The left ventricular diastolic function is abnormal. The basal inferior wall, mid inferior wall, basal inferolateral wall, and mid inferolateral wall are hypokinetic. All other meyers appear normal. Right Ventricle Right ventricular chamber dimension is mildly enlarged. Right ventricular systolic function is normal. Left Atria Left atrial chamber dimension is severely enlarged. Right Atria Right atrial chamber dimension is severely enlarged. Atrial Septum Intact interatrial septum visualized by color flow imaging. Aortic Valve The aortic valve is trileaflet. There is no aortic valve stenosis. There is trace aortic valve regurgitation. There is moderate aortic valve calcification. Pulmonic Valve The pulmonic valve is normal. There is no pulmonic valve stenosis. There is trace pulmonic regurgitation. Mitral Valve The mitral valve has calcified annulus. There is no mitral valve stenosis. There is mild mitral valve regurgitation. Tricuspid Valve The tricuspid valve leaflets are normal. There is no significant tricuspid valve stenosis. There is mild tricuspid valve regurgitation. Moderate pulmonary hypertension, estimated pulmonary arterial systolic pressure is 52 mmHg. Pericardium/Pleural The pericardium appears normal. There is no pericardial effusion. Inferior Vena Cava Dilated inferior vena cava with <50% collapse upon inspiration consistent with elevated right atrial pressure, 15 mmHg. Aorta The aortic root size at the sinus of Valsalva is normal. There is moderate aortic atherosclerosis. Left Ventricular Outflow Tract Name Value Normal LVOT 2D
[2024-01-09 00:47] LABS: Troponin I < 0.012 ng/mL (0.000-0.034)
[2024-01-09] MEDS: NITROGLYCERIN OINTMENT 1 INCH DOSE TRANSDERM (05:51)
[2024-01-09] MEDS: amLODIPine BESYLATE 2.5 MG TABLET PO (08:19)
[2024-01-09] MEDS: PANTOPRAZOLE 40 MG TABLET PO (08:19)
[2024-01-09] MEDS: guaiFENesin 12 HR 600 MG TABCR PO ×2 (08:19→20:11)
[2024-01-09] MEDS: APIXABAN 5 MG TABLET PO ×2 (08:19→20:11)
[2024-01-09] MEDS: carvediloL 12.5 MG TABLET PO ×2 (08:19→20:12)
[2024-01-09] MEDS: SERTRALINE HCL 25 MG TABLET PO (08:19)
[2024-01-09] MEDS: CLOPIDOGREL BISULFATE 75 MG TABLET PO (08:20)
[2024-01-09] MEDS: SACUBITRIL/VALSARTAN 24-26 MG TABLET 1 TAB PO ×2 (08:20→20:12)
--- NOTE | 2024-01-09 08:36 | EST_ITS ---
Patient Info Name: Karen Martinez Age: 73 years : 1950 Gender: Female Ht: 60 in Wt: 126 lbs BSA: 1.57 m2 Exam Date: 01/09/2024 10:45 AM Exam Location: Echo Lab Patient Status: Inpatient Admit Date: 01/08/2024 Staff Ordering Physician: Gildardo Isidro MD Attending Provider: Stacey Flynn DO Exercise Technologist: Daisha Nova RDCS Nurse: Marce Roque APN Exam Type: CA stress flash w NM Study Info Indications R07.9 - Chest pain, unspecified Summary 1. Please correlate with nuclear medicine images, reported separately. 2. Borderline ST depression - inferolateral leads with Lexiscan. Protocol: Lexiscan Stress ECG Details Stage: REST Duration (min): 1 min : 7 sec HR (bpm): 65 SBP (mmHg): 138 DBP (mmHg): 74 Stage: REST Duration (min): 1 min : 45 sec HR (bpm): 65 SBP (mmHg): 138 DBP (mmHg): 74 Stage: REST Duration (min): 2 min : 52 sec HR (bpm): 66 SBP (mmHg): 138 DBP (mmHg): 74 Stage: REST Duration (min): 4 min : 5 sec HR (bpm): 64 SBP (mmHg): 138 DBP (mmHg): 74 Stage: REST Duration (min): 5 min : 8 sec HR (bpm): 68 SBP (mmHg): 138 DBP (mmHg): 74 Stage: REST Duration (min): 7 min : 17 sec HR (bpm): 71 SBP (mmHg): 138 DBP (mmHg): 74 Stage: STAGE 1 Duration (min): 1 min : 0 sec HR (bpm): 74 SBP (mmHg): 149 DBP (mmHg): 62 Stage: RECOVERY Duration (min): 1 min : 0 sec HR (bpm): 75 SBP (mmHg): 149 DBP (mmHg): 62 Stage: RECOVERY Duration (min): 2 min : 0 sec HR (bpm): 76 SBP (mmHg): 118 DBP (mmHg): 56 Stage: RECOVERY Duration (min): 3 min : 0 sec HR (bpm): 67 SBP (mmHg): 119 DBP (mmHg): 53 Stage: RECOVERY Duration (min): 3 min : 15 sec HR (bpm): 75 SBP (mmHg): 119 DBP (mmHg): 53 Rest HR: 71 bpm Peak HR: 82 bpm Rest Sys BP: 138 mmHg Peak Sys BP: 149 mmHg Max Pred HR: 148 bpm % Max Pred HR: 55 % Target HR: 126 bpm Max RPP: 12,218 bpm*mmHg Target HR Summary: Hemodynamic response to exercise was normal BP Response: Normal blood pressure response Termination Reason: Completed protocol Cardiac Symptoms: None Total Time: 1 min : 0 sec Rest Gaytan BP: 74 mmHg Peak Gaytan BP: 62 mmHg Total Dose: 0.4 mg Resting ECG Atrial fibrillation. Non specific ST abnormality. Stress ECG Borderline ST depression - inferolateral leads with Lexiscan. Arrhythmias None. Report Signatures
--- NOTE | 2024-01-09 09:58 | PC.NURSE ---
Pt to nuclear medicine via wheelchair for Mine.
--- NOTE | 2024-01-09 11:15 | PM.PNCARD ---
Progress Note: A&P Assessment and Plan (1) Chest pain: Qualifiers: Chest pain type: unspecified Qualified Code(s): R07.9 - Chest pain, unspecified Code(s): R07.9 - Chest pain, unspecified Status: Acute Assessment and Plan: Consistent with unstable angina. Patient is at high risk for coronary angiogram. She did have a angiogram in 2020 which resulted in a stroke. At this point, plan will be to risk assess her coronaries by performing a Lexiscan myocardial perfusion study and to up titrate medications for better blood pressure control. Lexiscan showed normal perfusion, no ischemia or infarct. She should have short interval follow up with her primary clinical analyst, Dr. Tahir. PRIEST for discharge from a cardiac standpoint if echo is unremarkable. (2) CAD (coronary artery disease): Code(s): I25.10 - Atherosclerotic heart disease of [place] coronary artery without angina pectoris Status: Acute Assessment and Plan: continue carvedilol, clopidogrel, atorvastatin, Entresto, and amlodipine. Increase amlodipine to 5mg daily. (3) Essential hypertension: Code(s): I10 - Essential (primary) hypertension Status: Acute Assessment and Plan: as detailed above (4) Atrial fibrillation: Qualifiers: Atrial fibrillation type: unspecified Qualified Code(s): I48.91 - Unspecified atrial fibrillation Code(s): I48.91 - Unspecified atrial fibrillation Status: Acute Assessment and Plan: on Eliquis. Rate control strategy Subjective Date/time seen: 01/09/24 11:15 Interval history: Cardiology follow up for CAD, chest pain Date of service 01/09/2024: Having some mild chest discomfort this morning, but improved from yesterday. No shortness of breath. I am seeing her in the cardiac stress lab - she had some nausea and headache with lexiscan administration, no chest pain. Resolution of symptoms by the end of the test. Review of Systems Review of Systems: All systems reviewed & are unremarkable except as noted in HPI and below Constitutional: Constitutional: Denies body ache(s) and Denies excessive sweating Eyes: Eyes: Denies blurry vision ENT: Reports Normal hearing present Cardiovascular: Cardiovascular: Reports chest pain, Denies pedal edema and Reports dyspnea Respiratory: Respiratory: Reports dyspnea Gastrointestinal: Gastrointestinal: Denies abdominal pain Genitourinary: Genitourinary: Denies hematuria Musculoskeletal: Musculoskeletal: Denies back pain Integumentary/Breasts: Skin/Breast: Denies erythema Neurologic: Reports Normal hearing present and Denies Abnormal speech present Psychiatric: Psychiatric: Denies anxiety Endocrine: Endocrine: Denies excessive sweating Hematologic/Lymphatic: Hematologic/Lymphatic: Denies easy bleeding Allergic/Immunologic: Allergic/Immunologic: Denies GI upset with certain foods Exam Narrative: Awake alert oriented appears to be in no acute distress. Appears stated age Const: General: comfortable and no acute distress HENMT: Face/Nose/Sinus: Normal nares present Mouth: Yes moist mucous membranes Eyes: General: appearance normal, both eyes and all related structures Sclera: sclerae normal Neck: Neck: supple and no JVD Carotids: no bruits Chest: Other: no reproducible chest wall pain to palpation Resp: Effort & Inspection: normal respiratory effort Auscultation: clear to auscultation bilaterally Cardio: Rate: regular rate Rhythm: abnormal rhythm irregularly irregular Heart sounds: Murmur heart sound present systolic GI: Inspection: non-distended Auscultation: normal bowel sounds Skin: General skin exam: normal color Neuro: Cranial nerves: Yes Normal hearing present Speech: normal speech and No Abnormal speech present Sensory Exam: normal sensation Extrem: General: normal to inspection Other: no edema Psych: Mental Status: mental status raphael
--- NOTE | 2024-01-09 11:47 | PC.NURSE ---
Pt returned from nuclear medicine via wheelchair with no issues noted.
[2024-01-09] MEDS: FUROSEMIDE 20 MG TABLET PO (12:26)
[2024-01-09] MEDS: ASCORBIC ACID 500 MG TABLET PO (12:26)
[2024-01-09] MEDS: MAGNESIUM OXIDE 200 MG TABLET PO (12:26)
[2024-01-09] MEDS: FERROUS SULFATE 325 MG TABLET DR BY MOUTH (12:26)
[2024-01-09] MEDS: NITROGLYCERIN 0.4 MG/HR PATCH 1 PATCH TRANSDERM (13:54)
--- NOTE | 2024-01-09 16:38 | PM.IMPN ---
Progress Note: A&P Assessment and Plan (1) Chest pain: Qualifiers: Chest pain type: unspecified Qualified Code(s): R07.9 - Chest pain, unspecified Code(s): R07.9 - Chest pain, unspecified Status: Acute Assessment and Plan: Patient presents with chest pain occurring off/on since October. Pain appears to come on with activity and with stress. Troponins negative. EKG showing AFib with controlled rate and ST depression in the inferior leads and similar to prior. CTA negative for PE, aortic dissection or aortic aneurysm. Influenza, RSV and COVID PCR negative Recurrent chest pain and repeat EKG again not showing evidence of ischemia and Trop negative x 3 again. Cardiology consulted Lexiscan stress test showing borderline ST depression inferolateral leads. Nuclear Med images showing normal myocardial perfusion at rest and during stress wiht EF 67%. No wall motion abnormalities. Echo showing EF 65-70% with diastolic dysfunction, HK basal inferior, mid inferior, basal inferolateral and mid inferolateral wall and biatrial enlargement. Also with enlarged RVand mild valve disease and moderate pulm HTN. Medical management with Plavix, Lipitor, Coreg. Suspect chest pain more likely GI related or musculoskeletal from her cough. No GI on consult this weekend. Change to Protonix IV. Mylanta prn. Check UA since now having urinary symptoms. CTA negative for PE but check sputum given the persistent cough. Check CT A/p given her findings on the spleen and abd pain. (2) Essential hypertension: Code(s): I10 - Essential (primary) hypertension Status: Acute Assessment and Plan: BP was poorly controlled on admission. Unclear if this is related to stress and anxiety or if her BP is poorly controlled chronically. We resumed home medications and Norvasc added BP better controlled. Follow (3) PVD (peripheral vascular disease): Code(s): I73.9 - Peripheral vascular disease, unspecified Status: Acute Assessment and Plan: Hx of vascular injury to the right iliac s/p stenting. And hx of vertebral stenting per patient. Imaging here showing extensive atherosclerotic calcification of the aorta. 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 Consider abdominal angina. Home medications resumed. Continue Plavix and Lipitor. (4) Atrial fibrillation: Qualifiers: Atrial fibrillation type: unspecified Qualified Code(s): I48.91 - Unspecified atrial fibrillation Code(s): I48.91 - Unspecified atrial fibrillation Status: Acute Assessment and Plan: Patient with hx of chronic AFib. On Coreg for rate control and Eliquis for stroke prophylaxis. Resumed Coreg and Eliquis (5) CAD (coronary artery disease): Code(s): I25.10 - Atherosclerotic heart disease of [place] coronary artery without angina pectoris Status: Acute Assessment and Plan: Hx of CABG and more recently with stent placement. Mecical management (6) Hyperlipidemia: Code(s): E78.5 - Hyperlipidemia, unspecified Status: Acute Assessment and Plan: LFTs okay. LDL 45 Will continue Lipitor. (7) Hypothyroidism: Code(s): E03.9 - Hypothyroidism, unspecified Status: Acute Assessment and Plan: TSH normal. Continue levothyroxine. (8) Splenic lesion: Code(s): D73.89 - Other diseases of spleen Status: Acute Assessment and Plan: CT showing hypodense regions in the spleen, indeterminate, but new from prior exam. Neoplastic lesions are not excluded. Abscess seems less likely. hematologic neoplasm less liekly with normal CBC except for mild monocytosis at 900 cells. Could be related to occult neoplasm (breast, lung, stomach) but suspect more likely infarct. Check CT A/P Follow Plan DVT prophylaxis - Eliquis Code status - full Subjective Date/time seen: 01/09/24 16:38 Interval history: 7
[2024-01-09] MEDS: ACETAMINOPHEN 325 MG TABLET 650 MG PO (16:55)
[2024-01-09 18:28] LABS: Appearance Urine Clear (Clear); Bacteria Urine 2+ /hpf; Bilirubin Urine Negative (Negative); Blood Urine 2+ (Negative); Color Urine Yellow (Yellow); Glucose Urine UA Negative (Negative); Ketones Urine Trace mg/dL (Negative); Leukocyte Esterase Ur 1+ LEU/UL (Negative); Nitrate Urine Positive (Negative); Non Pathogenic Casts 0-2; Protein Urine Negative (Negative); Specific Grav Ur 1.024 (1.001-1.035); Squamous Epithelial Cell Urine Occasional /hpf (Few); Urobilinogen Urine 0.2 mg/dL (<2.0); WBC Urine 21-50 /hpf
[2024-01-09 19:02] LABS: Add Urine Microscopic? YES
[2024-01-09] MEDS: PANTOPRAZOLE SODIUM IV 40 MG VIAL IV PUSH (20:11)
[2024-01-09] MEDS: LORazepam (*CRX) 0.5 MG TABLET PO (20:12)
[2024-01-09] MEDS: ATORVASTATIN 40 MG TABLET PO (20:12)
[2024-01-09] MEDS: FOLIC ACID 0.4 MG TABLET 0.8 MG PO (20:27)
[2024-01-09] MEDS: LEVOTHYROXINE SODIUM 50 MCG TABLET PO (23:30)
[2024-01-10] VITALS (13 sets, daily range): BP systolic 115–157; BP diastolic 46–83; PULSE 58–82; RESP 16; TEMP 36.2–36.9; O2SAT 97–99
[2024-01-10] MEDS: ACETAMINOPHEN 325 MG TABLET 650 MG PO ×4 (00:15→23:19)
--- NOTE | 2024-01-10 02:29 | PC.NURSE ---
This patient, Karen Martinez, was transferred to [[id number] ] on 01/10/24 at 0230. Personal belongings sent with patient. Report given to [KIERRA Jackson ]. Appropriate documentation sent with patient.
--- NOTE | 2024-01-10 02:49 | PC.NURSE ---
Patient arrived from IMU at 0230. Report was called from KIERRA Botello, prior to pt arrival and all questions were answered. Bed low and locked with call light in reach.
[2024-01-10] MEDS: LORazepam (*CRX) 0.5 MG TABLET PO (04:26)
[2024-01-10 06:23] LABS: Anion Gap 5 mmol/L (8-16); Blood Urea Nitrogen 21 mg/dL (7-17); Calcium 9.1 mg/dL (8.4-10.2); Carbon Dioxide 26 mmol/L (22-30); Chloride 103 mmol/L (98-107); Estimated CRCL calculation 59 ml/min; Estimated Glomerular Filt Rate > 60; Glucose 101 mg/dL (65-110); Potassium 3.6 mmol/L (3.4-5.0); Sodium 134 mmol/L (137-145)
[2024-01-10] MEDS: carvediloL 12.5 MG TABLET PO ×2 (09:08→20:28)
[2024-01-10] MEDS: SERTRALINE HCL 25 MG TABLET PO (09:09)
[2024-01-10] MEDS: ASCORBIC ACID 500 MG TABLET PO (09:09)
[2024-01-10] MEDS: CLOPIDOGREL BISULFATE 75 MG TABLET PO (09:09)
[2024-01-10] MEDS: guaiFENesin 12 HR 600 MG TABCR PO ×2 (09:09→20:28)
[2024-01-10] MEDS: SACUBITRIL/VALSARTAN 24-26 MG TABLET 1 TAB PO ×2 (09:10→20:28)
[2024-01-10] MEDS: FERROUS SULFATE 325 MG TABLET DR BY MOUTH (09:10)
[2024-01-10] MEDS: APIXABAN 5 MG TABLET PO ×2 (09:10→20:28)
[2024-01-10] MEDS: amLODIPine BESYLATE 5 MG TABLET PO (09:10)
[2024-01-10] MEDS: PANTOPRAZOLE SODIUM IV 40 MG VIAL IV PUSH ×2 (09:11→20:29)
[2024-01-10] MEDS: FUROSEMIDE 20 MG TABLET PO (09:21)
[2024-01-10] MEDS: MAGNESIUM OXIDE 200 MG TABLET PO (10:08)
[2024-01-10] MEDS: NITROGLYCERIN 0.4 MG/HR PATCH 1 PATCH TRANSDERM (10:08)
[2024-01-10] MEDS: NITROGLYCERIN SL 0.4 MG TABLET SUBLINGUAL ×2 (12:09→12:24)
--- NOTE | 2024-01-10 13:45 | PM.IMPN ---
Progress Note: A&P Assessment and Plan (1) Chest pain: Qualifiers: Chest pain type: unspecified Qualified Code(s): R07.9 - Chest pain, unspecified Code(s): R07.9 - Chest pain, unspecified Status: Acute Assessment and Plan: Patient presents with chest pain occurring off/on since October. Pain appears to come on with activity and with stress. Troponins negative. EKG showing AFib with controlled rate and ST depression in the inferior leads and similar to prior. CTA negative for PE, aortic dissection or aortic aneurysm. Influenza, RSV and COVID PCR negative Recurrent chest pain and repeat EKG again not showing evidence of ischemia and Trop negative x 3 again. Cardiology consulted Lexiscan stress test showing borderline ST depression inferolateral leads. Nuclear Med images showing normal myocardial perfusion at rest and during stress wiht EF 67%. No wall motion abnormalities. Echo showing EF 65-70% with diastolic dysfunction, HK basal inferior, mid inferior, basal inferolateral and mid inferolateral wall and biatrial enlargement. Also with enlarged RVand mild valve disease and moderate pulm HTN. Medical management with Plavix, Lipitor, Coreg. Suspect chest pain more likely GI related or musculoskeletal from her cough. No GI on consult this weekend. CT scan showing gastritis and esophagitis. Continue Protonix IV. Mylanta prn. (2) Essential hypertension: Code(s): I10 - Essential (primary) hypertension Status: Acute Assessment and Plan: BP was poorly controlled on admission. Unclear if this is related to stress and anxiety or if her BP is poorly controlled chronically. We resumed home medications and Norvasc added BP better controlled. Follow (3) PVD (peripheral vascular disease): Code(s): I73.9 - Peripheral vascular disease, unspecified Status: Acute Assessment and Plan: Hx of vascular injury to the right iliac s/p stenting. And hx of Rt vertebral stenting per patient. Imaging here showing extensive atherosclerotic calcification of the aorta. 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 Consider abdominal angina. 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 Discussed with Cardiology and appreciate their input. Home medications resumed. Continue Plavix and Lipitor. (4) Atrial fibrillation: Qualifiers: Atrial fibrillation type: unspecified Qualified Code(s): I48.91 - Unspecified atrial fibrillation Code(s): I48.91 - Unspecified atrial fibrillation Status: Acute Assessment and Plan: Patient with hx of chronic AFib. On Coreg for rate control and Eliquis for stroke prophylaxis. Continue Coreg and Eliquis (5) CAD (coronary artery disease): Code(s): I25.10 - Atherosclerotic heart disease of [place] coronary artery without angina pectoris Status: Acute Assessment and Plan: Hx of CABG and more recently with stent placement. Mecical management (6) Hyperlipidemia: Code(s): E78.5 - Hyperlipidemia, unspecified Status: Acute Assessment and Plan: LFTs okay. LDL 45 Will continue Lipitor. (7) Hypothyroidism: Code(s): E03.9 - Hypothyroidism, unspecified Status: Acute Assessment and Plan: TSH normal. Continue levothyroxine. (8) Splenic lesion: Code(s): D73.89 - Other diseases of spleen Status: Acute Assessment and Plan: CT showing hypodense regions in the spleen, indeterminate, but new from prior exam. Neoplastic lesions are not excluded. Abscess seems less likely. hematologic neoplasm less liekly with normal CBC except for mild monocytosis at 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
[2024-01-10] MEDS: DOXYCYCLINE HYCLATE 100 MG TABLET PO ×2 (14:35→20:28)
--- NOTE | 2024-01-10 14:53 | ECG_ITS ---
Measurements Intervals [place] Rate: 65 P: IA: 0 QRS: 38 QRSD: 86 T: 15 QT: 426 QTc: 446 Interpretive Statements ATRIAL FIBRILLATION LOW QRS VOLTAGE IN PRECORDIAL LEADS [QRS DEFLECTION < 1.0 mV IN CHEST LEADS] NONSPECIFIC ST SEGMENT ABNORMALITY ABNORMAL ECG COMPARED TO ECG 01/08/2024 17:53:18 HEART RATE IS REDUCED Electronically Signed On 01-10-2024 19:18:41 DEPUTY SHERIFF K9 HANDLER by Chapincito Manuel M.D.
--- NOTE | 2024-01-10 15:03 | PM.PNCARD ---
Progress Note: A&P Assessment and Plan (1) CAD (coronary artery disease): Code(s): I25.10 - Atherosclerotic heart disease of [place] coronary artery without angina pectoris Status: Acute Plan 73-year-old lady with: Extensive history of coronary and peripheral vascular disease. She is having mid epigastric to low substernal pain off and on that is atypical for ischemia she had a negative nuclear stress test yesterday. No objective evidence of acute coronary syndrome. Abdominal pelvic CT last evening demonstrates a short segment of dissection of the left external iliac artery. Obviously this has nothing to do with her symptoms and cause of presentation. There appears to be good flow in the artery on CT. Most likely this is a vascular complication of a access of the femoral/iliac artery on the left side at the time cerebrovascular procedure that she says was done at [facility] in September. No evidence of pseudoaneurysm or flow flow-limiting stenosis in this vessel. At this time this does not require further attention on our hospital. She is stable from my perspective for discharge follow-up with her established [employer]. Chapincito Manuel MD [facility] Subjective Date/time seen: Date of service: 01/10/24 15:03 Interval history: Cardiology follow up for CAD, chest pain Date of service 01/09/2024: Having some mild chest discomfort this morning, but improved from yesterday. No shortness of breath. I am seeing her in the cardiac stress lab - she had some nausea and headache with lexiscan administration, no chest pain. Resolution of symptoms by the end of the test. Date of service 01/10/2024: Since continues to have mild intermittent mid epigastric discomfort. She is happy that her nuclear stress test yesterday appears to be normal. I was notified by hospitalist earlier today that the patient's abdominal/pelvic CT demonstrated dissection in the left external iliac artery. The scan was reviewed personally. Spoke to the patient and her about these findings. Exam Narrative: Awake alert oriented appears to be in no acute distress. Appears stated age Const: General: comfortable and no acute distress HENMT: Face/Nose/Sinus: Normal nares present Mouth: Yes moist mucous membranes Eyes: General: appearance normal, both eyes and all related structures Sclera: sclerae normal Neck: Neck: supple and no JVD Carotids: no bruits Chest: Other: no reproducible chest wall pain to palpation Resp: Effort & Inspection: normal respiratory effort Auscultation: clear to auscultation bilaterally Cardio: Rate: regular rate Rhythm: abnormal rhythm irregularly irregular Heart sounds: Murmur heart sound present systolic GI: Inspection: non-distended Auscultation: normal bowel sounds Skin: General skin exam: normal color Neuro: Cranial nerves: Yes Normal hearing present Speech: normal speech and No Abnormal speech present Sensory Exam: normal sensation Extrem: General: normal to inspection Other: no edema Psych: Mental Status: mental status grossly normal Affect: normal affect Objective Data Vital Signs Vital Signs: Vital Signs - 24 hr 01/09/24 16:00 01/09/24 16:00 01/09/24 16:00 Temperature 37.3 C Pulse Rate 70 79 Respiratory Rate 16 Blood Pressure 135/58 L Pulse Oximetry 98 Oxygen Delivery Room Air 01/09/24 19:17 01/09/24 20:12 01/09/24 20:00 Temperature 36.7 C Pulse Rate 72 74 91 Respiratory Rate 20 Blood Pressure 132/42 L Pulse Oximetry 98 Oxygen Delivery 01/09/24 23:40 01/10/24 00:00 01/10/24 05:23 Temperature 36.7 C 36.4 C Pulse Rate 74 72 70 Respiratory Rate 16 16 Blood Pressure 115/52 L 157/83 H Pulse Oximetry 96 99 Oxygen Delivery 01/10/24 04:00 01/10/24 08:01 01/10/24 09:08 Temperature 36.4 C L Pulse Rate 60 67 82 Respiratory Rate 16 Blood Pressure 133/63 Pulse Oximetry 98 Oxygen Delivery
[2024-01-10] MEDS: ASPIRIN 81 MG CHEWABLE TABLET 324 MG PO (15:23)
[2024-01-10 16:14] LABS: Troponin I < 0.012 ng/mL (0.000-0.034)
[2024-01-10] MEDS: LEVOTHYROXINE SODIUM 50 MCG TABLET PO (20:28)
[2024-01-10] MEDS: ATORVASTATIN 40 MG TABLET PO (20:28)
[2024-01-10] MEDS: FOLIC ACID 0.4 MG TABLET 0.8 MG PO (20:29)
[2024-01-11] VITALS (8 sets, daily range): BP systolic 139–151; BP diastolic 44–61; PULSE 59–72; RESP 16–24; TEMP 36.5–37.1; O2SAT 98–100
[2024-01-11] MEDS: PANTOPRAZOLE SODIUM IV 40 MG VIAL IV PUSH (08:29)
[2024-01-11] MEDS: APIXABAN 5 MG TABLET PO (08:29)
[2024-01-11] MEDS: guaiFENesin 12 HR 600 MG TABCR PO (08:29)
[2024-01-11] MEDS: CLOPIDOGREL BISULFATE 75 MG TABLET PO (08:29)
[2024-01-11] MEDS: ASCORBIC ACID 500 MG TABLET PO (08:29)
[2024-01-11] MEDS: SERTRALINE HCL 25 MG TABLET PO (08:29)
[2024-01-11] MEDS: MAGNESIUM OXIDE 200 MG TABLET PO (08:30)
[2024-01-11] MEDS: DOXYCYCLINE HYCLATE 100 MG TABLET PO (08:30)
[2024-01-11] MEDS: FERROUS SULFATE 325 MG TABLET DR BY MOUTH (08:30)
[2024-01-11] MEDS: SACUBITRIL/VALSARTAN 24-26 MG TABLET 1 TAB PO (08:30)
[2024-01-11] MEDS: FUROSEMIDE 20 MG TABLET PO (08:30)
[2024-01-11] MEDS: NITROGLYCERIN 0.4 MG/HR PATCH 1 PATCH TRANSDERM (08:30)
[2024-01-11] MEDS: carvediloL 12.5 MG TABLET PO (08:31)
[2024-01-11] MEDS: amLODIPine BESYLATE 5 MG TABLET PO (08:31)
[2024-01-11] MEDS: ACETAMINOPHEN 325 MG TABLET 650 MG PO (12:09)
--- NOTE | 2024-01-11 12:24 | PM.DS ---
DS: Admitting Diagnosis Discharge Date 01/11/24 Admitting Diagnosis Chest pain DS: Discharge Diagnosis Discharge Diagnosis (1) Chest pain: Qualifiers: Chest pain type: unspecified Qualified Code(s): R07.9 - Chest pain, unspecified Code(s): R07.9 - Chest pain, unspecified Status: Acute (2) Essential hypertension: Code(s): I10 - Essential (primary) hypertension Status: Acute (3) PVD (peripheral vascular disease): Code(s): I73.9 - Peripheral vascular disease, unspecified Status: Acute (4) Atrial fibrillation: Qualifiers: Atrial fibrillation type: unspecified Qualified Code(s): I48.91 - Unspecified atrial fibrillation Code(s): I48.91 - Unspecified atrial fibrillation Status: Acute (5) CAD (coronary artery disease): Code(s): I25.10 - Atherosclerotic heart disease of [place] coronary artery without angina pectoris Status: Acute (6) Hyperlipidemia: Code(s): E78.5 - Hyperlipidemia, unspecified Status: Acute (7) Hypothyroidism: Code(s): E03.9 - Hypothyroidism, unspecified Status: Acute (8) Splenic lesion: Code(s): D73.89 - Other diseases of spleen Status: Acute (9) Dissection, 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 Hospital Course: Patient presents with chest pain occurring off/on since October.? Pain appears to come on with activity and with stress. Troponins negative. EKG showing AFib with controlled rate and ST depression in the inferior leads and similar to prior. CTA negative for PE, aortic dissection or aortic aneurysm.? Influenza, RSV and COVID PCR negative. Recurrent chest pain and repeat EKG again not showing evidence of ischemia and Trop negative x 3 again. Cardiology consulted. Lexiscan stress test showing borderline ST depression inferolateral leads. Nuclear Med images showing normal myocardial perfusion at rest and during stress with EF 67%. No wall motion abnormalities. Echo showing EF 65-70% with diastolic dysfunction, HK basal inferior, mid inferior, basal inferolateral and mid inferolateral wall and biatrial enlargement. Also with enlarged RV and mild valve disease and moderate pulm HTN. Plan was for medical management with Plavix, Lipitor, Coreg. Suspect chest pain more likely GI related or musculoskeletal from her cough. CT abdomen showing gastritis and esophagitis treated with Protonix IV and Mylanta prn.?BP was poorly controlled on admission. Unclear if this is related to stress and anxiety or if her BP is poorly controlled chronically. We resumed home medications and Norvasc added BP better controlled. Patient has a hx of vascular injury to the right iliac s/p stenting. Imaging here showing extensive atherosclerotic calcification of the aorta and probable stenoses at the origin of the celiac artery and SMA. Consider abdominal angina. Also with severe stenosis of the left internal and external iliac artery with short segment of? left external iliac artery dissection. Discussed with Cardiology and appreciate their input. Plan for patient to have short follow up with her vascular surgeon. Patient with hx of chronic AFib. On Coreg for rate control and Eliquis for stroke prophylaxis. CT chest also showing hypodense regions in the spleen, indeterminate, but new from prior exam. Neoplastic lesions are not excluded. Abscess seems less likely. hematologic neoplasm less likely with normal CBC except for mild monocytosis at [address] Abdomen does not show a splenic lesion. Suspect original imaging false finding. Patient having urinary symptoms one day after admission. No urinary symptoms on ad
--- NOTE | 2024-01-13 11:27 | PC.NURSE ---
Sputum cx shows mixed bacterial marques. Dr. Brenda boyce.
== END 2024-01-11 14:30 | disposition home or self-care (01) ==
LOC: ANHED 01-08 04:19 → ANHIMU 01-08 06:46 → ANH3MED 01-10 10:21 → ANHIMU 01-13 08:13 → ANH3MED 01-13 08:13
PROVIDERS: Internal Medicine; Admitting Provider Internal Medicine; Emergency Provider Student in an Organized Health Care Education/Training Program; PCP Internal Medicine; Visit Provider Internal Medicine
DX: R07.9 Chest pain, unspecified (principal); I48.91 Unspecified atrial fibrillation; I77.72 Dissection of iliac artery; D73.89 Other diseases of spleen; N39.0 Urinary tract infection, site not specified; I25.10 Atherosclerotic heart disease of native coronary artery without angina pectoris; I10 Essential (primary) hypertension; I73.9 Peripheral vascular disease, unspecified; R06.02 Shortness of breath; E78.5 Hyperlipidemia, unspecified; E03.9 Hypothyroidism, unspecified; D50.9 Iron deficiency anemia, unspecified; Z98.62 Peripheral vascular angioplasty status; I08.3 Combined rheumatic disorders of mitral, aortic and tricuspid valves; Z20.822 Contact with and (suspected) exposure to COVID-19; F32.A Depression, unspecified; K21.9 Gastro-esophageal reflux disease without esophagitis; I25.2 Old myocardial infarction; I27.20 Pulmonary hypertension, unspecified; I70.0 Atherosclerosis of aorta; I69.398 Other sequelae of cerebral infarction; H53.8 Other visual disturbances; Z95.1 Presence of aortocoronary bypass graft; Z95.5 Presence of coronary angioplasty implant and graft; Z87.891 Personal history of nicotine dependence; F10.90 Alcohol use, unspecified, uncomplicated; Z79.01 Long term (current) use of anticoagulants; Z79.02 Long term (current) use of antithrombotics/antiplatelets; Z79.899 Other long term (current) drug therapy; Z82.49 Family history of ischemic heart disease and other diseases of the circulatory system
CPT/HCPCS: 36415; 71046; 71275; 74178; 78452; 80048; 80053; 80061; 80069; 81001; 82607; 82746; 83690; 83735; 84443; 84484; 85025; 85380; 85610; 85730; 87070; 87077; 87086; 87186; 87205; 87637; 93005; 93017; 93306; 96361; 96365; 96374; 96375; 96376; 99285; A9270; A9502; C9113; G0378; J0696; J7030; Q9967

== ENCOUNTER → 2024-04-06 12:59 | Outpatient (RCR) | payer MEDICARE, SELFPAY ==
[2022-09-10 10:54] VITALS: BP 123/43; PULSE 70; TEMP 37.1; O2SAT 100
[2022-09-10 13:14] VITALS: BP 140/67
[2022-09-11 09:00] VITALS: BP 129/40; PULSE 75; TEMP 37.2; O2SAT 100
[2022-09-11 11:21] VITALS: BP 151/63; PULSE 86; RESP 20; O2SAT 98
[2022-09-12 09:55] VITALS: BP 116/48; PULSE 79; TEMP 37.2; O2SAT 99
[2022-09-12 12:17] VITALS: BP 137/63
[2022-12-30 13:31] LABS: Hematocrit 34.9 % (37.0-47.0); Hemoglobin 10.9 g/dL (12.0-15.0); Mean Corpuscular HGB Conc 31.2 g/dl (32-36); Mean Corpuscular Hemoglobin 30.5 pg (26-34); Mean Corpuscular Volume 97.8 fl (80-100); Mean Platelet Volume 9.9 fl (7.4-10.4); Platelet Count Result 226 k/mm3 (150-375); Red Blood Count 3.57 M/mm3 (4.2-5.4); Red Cell Distribution Width 13.2 % (11.5-14.5); White Blood Count 6.9 K/mm3 (4.5-10.0)
[2022-12-30 15:41] LABS: Iron 169 ug/dL (37-170)
[2022-12-30 15:47] LABS: Anion Gap 6 mmol/L (8-16); Blood Urea Nitrogen 17 mg/dL (7-17); Calcium 8.3 mg/dL (8.4-10.2); Carbon Dioxide 28 mmol/L (22-30); Chloride 106 mmol/L (98-107); Estimated Glomerular Filt Rate > 60; Glucose 100 mg/dL (65-110); Potassium 3.8 mmol/L (3.4-5.0); Sodium 140 mmol/L (137-145)
[2022-12-30 15:53] LABS: Percent Iron Saturation 46 % (20-50)
[2023-04-04 13:54] LABS: Basophils Absolute Auto 0.1 K/mm3 (0.0-0.1); Basophils Percent Auto 1.6 % (0.2-1.2); Eosinophils Absolute Auto 0.2 K/mm3 (0-0.3); Hematocrit 40.8 % (37.0-47.0); Hemoglobin 13.2 g/dL (12.0-15.0); Immature Granulocyte Absolute 0.07 K/mm3 (0.00-0.031); Immature Granulocyte Percent A 1.1 % (0-0.5); Lymphocytes Absolute Auto 1.41 K/mm3 (0.9-3.2); Lymphocytes Percent Auto 22.3 % (18.3-44.2); Mean Corpuscular HGB Conc 32.4 g/dl (32-36); Mean Corpuscular Hemoglobin 29.8 pg (26-34); Mean Corpuscular Volume 92.1 fl (80-100); Mean Platelet Volume 9.7 fl (7.4-10.4); Monocytes Absolute Auto 0.5 K/mm3 (0.1-0.6); Monocytes Percent Auto 7.8 % (2.6-8.5); Neutrophils Absolute Auto 4.1 K/mm3 (1.3-6.7); Neutrophils Percent Auto 64.2 % (45.5-73.1); Platelet Count Result 255 k/mm3 (150-375); Red Blood Count 4.43 M/mm3 (4.2-5.4); Red Cell Distribution Width 13.1 % (11.5-14.5); White Blood Count 6.3 K/mm3 (4.5-10.0)
[2023-04-04 14:43] LABS: Iron 65 ug/dL (37-170)
[2023-04-04 14:53] LABS: Percent Iron Saturation 17 % (20-50)
[2023-04-04 15:56] LABS: Folic Acid 15.3 ng/mL (2.76->20)
[2024-04-06 13:13] LABS: Hematocrit 36.1 % (37.0-47.0); Hemoglobin 11.3 g/dL (12.0-15.0); Mean Corpuscular HGB Conc 31.3 g/dl (32-36); Mean Corpuscular Hemoglobin 28.9 pg (26-34); Mean Corpuscular Volume 92.3 fl (80-100); Mean Platelet Volume 9.8 fl (7.4-10.4); Platelet Count Result 213 k/mm3 (150-375); Red Blood Count 3.91 M/mm3 (4.2-5.4); Red Cell Distribution Width 13.9 % (11.5-14.5); White Blood Count 6.2 K/mm3 (4.5-10.0)
[2024-04-06 16:36] LABS: Iron 57 ug/dL (37-170)
[2024-04-06 16:40] LABS: Anion Gap 7 mmol/L (4-12); Blood Urea Nitrogen 20 mg/dL (7-17); Calcium 9.3 mg/dL (8.4-10.2); Carbon Dioxide 26 mmol/L (22-30); Chloride 106 mmol/L (98-107); Estimated Glomerular Filt Rate > 60; Glucose 107 mg/dL (65-110); Potassium 4.6 mmol/L (3.4-5.0); Sodium 139 mmol/L (137-145)
[2024-04-06 16:57] LABS: Percent Iron Saturation 14 % (20-50)
[2024-04-06 17:52] LABS: Folic Acid > 20.0 ng/mL (2.76->20)
== END ==
LOC: AMCINF 09-10 10:37
PROVIDERS: Nurse Practitioner Family; Visit Provider Internal Medicine Hematology & Oncology
DX: D50.9 Iron deficiency anemia, unspecified (principal); I10 Essential (primary) hypertension; I73.9 Peripheral vascular disease, unspecified; I48.91 Unspecified atrial fibrillation; Z87.891 Personal history of nicotine dependence; Z95.1 Presence of aortocoronary bypass graft
CPT/HCPCS: 36415; 80048; 82607; 82728; 82746; 83540; 83550; 85025; 85027; 96365; 96366; 96375; A9270; J1200; J1756; J7050

== ENCOUNTER 2024-09-03 13:47 | Outpatient (CLI) | payer MEDICARE, SELFPAY ==
[2024-09-03 14:20] LABS: Basophils Absolute Auto 0.1 K/mm3 (0.0-0.1); Basophils Percent Auto 1.8 % (0.2-1.2); Eosinophils Absolute Auto 0.3 K/mm3 (0-0.3); Eosinophils Percent Auto 4.2 % (0-4.4); Hematocrit 29.1 % (37.0-47.0); Hemoglobin 8.7 g/dL (12.0-15.0); Immature Granulocyte Absolute 0.03 K/mm3 (0.00-0.031); Immature Granulocyte Percent A 0.4 % (0-0.5); Lymphocytes Absolute Auto 1.33 K/mm3 (0.9-3.2); Lymphocytes Percent Auto 18.6 % (18.3-44.2); Mean Corpuscular HGB Conc 29.9 g/dl (32-36); Mean Corpuscular Hemoglobin 25.6 pg (26-34); Mean Corpuscular Volume 85.6 fl (80-100); Mean Platelet Volume 10.1 fl (7.4-10.4); Monocytes Absolute Auto 0.7 K/mm3 (0.1-0.6); Monocytes Percent Auto 9.4 % (2.6-8.5); Neutrophils Absolute Auto 4.7 K/mm3 (1.3-6.7); Neutrophils Percent Auto 65.6 % (45.5-73.1); Platelet Count Result 276 k/mm3 (150-375); Red Cell Distribution Width 14.5 % (11.5-14.5); White Blood Count 7.1 K/mm3 (4.5-10.0)
[2024-09-03 14:50] LABS: Iron 29 ug/dL (37-170)
[2024-09-03 14:51] LABS: Platelet Estimate Adequate (Adequate)
[2024-09-03 14:52] LABS: Hypochromasia 1+; Schistocytes None Seen
[2024-09-03 15:00] LABS: Percent Iron Saturation 7 % (20-50)
[2024-09-03 15:08] LABS: Anion Gap 10 mmol/L (4-12); Blood Urea Nitrogen 21 mg/dL (7-17); Calcium 9.1 mg/dL (8.4-10.2); Carbon Dioxide 26 mmol/L (22-30); Chloride 103 mmol/L (98-107); Estimated Glomerular Filt Rate > 60; Glucose 97 mg/dL (65-110); Sodium 139 mmol/L (137-145)
[2024-09-03 15:22] LABS: Ferritin 9.81 ng/mL (11.1-264)
[2024-09-03 15:56] LABS: Folic Acid > 20.0 ng/mL (2.76->20)
== END 2024-09-03 13:48 | disposition home or self-care (01) ==
PROVIDERS: PCP Internal Medicine; Visit Provider Internal Medicine Hematology & Oncology
DX: D64.9 Anemia, unspecified (principal)
CPT/HCPCS: 36415; 80048; 82607; 82728; 82746; 83540; 83550; 85025

== ENCOUNTER 2025-11-09 11:46 | Emergency (ER) | payer MEDICARE, SELFPAY ==
[2025-11-09] VITALS (12 sets, daily range): BP systolic 132–173; BP diastolic 51–99; PULSE 64–92; RESP 16–18; TEMP 36.3–36.7; O2SAT 96–100
--- NOTE | 2025-11-09 13:19 | ECG_ITS ---
Test Date: 2025-11-09 13:34:26 Measurements Intervals [place] Rate: 61 P: 0 MS: 0 QRS: 48 QRSD: 80 T: 11 QT: 421 QTc: 427 Interpretive Statements ATRIAL FIBRILLATION CANNOT R/O SEPTAL INFARCT, AGE INDETERMINATE ST-T WAVE ABNORMALITY IN DIFFUSE LEADS- CONSIDER ISCHEMIA BASELINE ARTIFACT- I, II, III, AVR, AVL, AVF, V1-V6 ABNORMAL ECG No previous ECG available for comparison Electronically Signed On 11-09-2025 13:47:57 INSURANCE CHECKER by Abdiaziz Garrett D.O.
[2025-11-09 13:51] LABS: Hematocrit 25.6 % (37.0-47.0); Hemoglobin 7.2 g/dL (12.0-15.0); Immature Granulocyte Percent A 0.4 % (0-0.5); Lymphocytes Absolute Auto 1.29 K/mm3 (0.9-3.2); Mean Corpuscular HGB Conc 28.1 g/dl (32-36); Mean Corpuscular Hemoglobin 23.3 pg (26-34); Mean Corpuscular Volume 82.8 fl (80-100); Nucleated Red Blood Cells Absolute Auto 0.000 K/mm3 (0.0-0.012); Nucleated Red Blood Cells Perc 0.0 % (0.0-0.2); Platelet Count Result 326 k/mm3 (150-375); Red Blood Count 3.09 M/mm3 (4.2-5.4); White Blood Count 6.8 K/mm3 (4.5-10.0)
--- OUTSIDE RECORDS SUMMARY | 2025-11-09 13:54 | XMS_ITS | Clinical Summary ---
Author Organization [facility] Garret avila Juan Address [address] [place] [address] Care Team Providers Care Tube Drawer Name Role Phone Larissa Wild MD Primary Care Provider Allergies Active Allergy Reactions Criticality Noted Date Comments Codeine Other (See Comments),Unknown Low 04/16/2018 Severe stomach cramps Nitrofurantoin Monohyd/M-Cryst Hives High 05/07/2022 Medications calcium carbonate-mag hydroxid 1,000-200 mg Tablet, Chewable CALCIUM CARBONATE TABLET 0 Active apixaban (Eliquis) 5 mg tablet Eliquis 5 mg tablet TAKE 1 TABLET BY MOUTH TWICE A DAY 2 Active ascorbic acid (VITAMIN C) 500 mg Tablet, Chewable Take 500 mg by mouth daily. Active atorvastatin (LIPITOR) 40 mg tablet atorvastatin 40 mg tablet 0 Active biotin 5,000 mcg Tablet, Rapid Dissolve Take 5,000 mcg by mouth daily. Active carvediloL (COREG) 6.25 mg tablet carvedilol 6.25 mg tablet TAKE 1 TABLET BY MOUTH TWICE DAILY 1 Active cholecalcifero l, vitamin D3, 1,000 unit Vitamin D3 25 mcg (1,000 unit) tablet 0 Active furosemide (LASIX) 20 mg tablet furosemide 20 mg tablet Active levothyroxine 50 mcg tablet levothyroxine 50 mcg tablet TAKE 1 TABLET BY MOUTH SUPERVISOR RIVETING BEFORE BREAKFAST 2 Active zinc 50 mg Tablet Take 1 Tablet by mouth daily. Active nitroglycerin (NITRODUR) 0.4 mg/hr patch APPLY 1 PATCH TO SKIN EVERY 24 HOURS NEEDED 4 Active Active Problems Problem Noted Date Diagnosed Date Chronic anemia 08/12/2022 Encounters Date Type Department Care Team Description 10/27/2025 Telephone [facility] Oncology and Hematology - [place] [address] [place] [address] Samuel Montez MD Lab Results 10/26/2025 Orders Only [facility] Oncology and Hematology - [place] [address] [place] [id number] Samuel Montez MD 10/25/2025 Telephone [facility] Oncology and Hematology - [place] [address] [place] [id number] Samuel Montez MD Fatigue 09/14/2025 External Device Data [facility] ABSTRACTION Provider, Abstract 09/13/2025 External Device Data [facility] ABSTRACTION Provider, Abstract 08/16/2025 External Device Data [facility] ABSTRACTION Provider, Abstract from Last 3 Months Social History Tobacco Use Types Packs/Day Years Used Date Smoking Tobacco: Former Cigarettes 1 15 0 11/24/1983 - 11/24/1998 Smokeless Tobacco: Never Tobacco Cessation:Counseling Given: Not Answered Comments Unknown Sex and Gender Information Value Date Recorded Sex Assigned at Not on file Legal Sex Female 10:09 PM CDT Gender Identity Not on file Sexual Orientation Not on file Last Filed Vital Signs Vital Sign Reading Time Taken Comments Blood Pressure 106/54 06/16/2025 9:42 AM CDT Pulse 84 06/16/2025 9:42 AM CDT Temperature 36.9 C (98.5 F) 06/16/2025 9:42 AM CDT Respiratory Rate 15 06/16/2025 9:42 AM CDT Oxygen Saturation 97% 06/16/2025 9:42 AM CDT Inhaled Oxygen Concentration - - Weight 61.9 kg (136 lb 6.4 oz) 06/16/2025 9:42 A M CDT Height 157.5 cm (5' 2) 08/27/2022 1:52 PM CDT Body Mass Index 24.95 08/27/2022 1:52 PM CDT Plan of Treatment Upcoming Encounters Date Type Department Care Team (Late st Contact Info) Description 02/01/2026 11:30 AM CDT Office Visit [facility] Oncology and Hematology - [place] [address] [place] [address] Samuel Montez MD [address] [facility] [address] [place] [address] Health Maintenance Due Date Last Done Comments DIABETES ANNUAL FOOT EXAM 1969 DIABETES ANNUAL RETINAL EXAM 1969 DIABETES MICROALBUMIN ANNUAL SCREEN 1969 LDL CHOLESTEROL ANNUAL 1969 BREAST CANCER SCREENING 1991 COLORECTAL SCREENING 02/03/1996 Colorectal Cancer Screening 02/03/1996 FIT-DNA Q 3 years 02/03/1996 FIT/FOBT Q 1 year 02/03/1996 Flex Sig/CT Colonography Q 5 years 02/03/1996 ZOSTER VACCINE (1 of 2) 2001 OSTEOPOROSIS SCREENING 02/03/2016 DTAP/TDAP/TD VACCINES (1 - Tdap) 02/03/2020 02/02/20 20 Medicare Advantage ([place]) Preventative Visit/Annual Wellness Visit 11/24/2024 DIABETES HBA1C Q 6 MONTHS 05/02/2025 11/01/2024 INFLUENZA VACCINE (#1) 2025 4, 09/24/2022, 10/15/2021, Additional history exists RSV VACCINE (60+ or ) (1 - 1-dose 75+ series) 2026 PNEUMOCOCCAL VACCINE 50+ YEARS Completed 10/30/2020 , 02/16/2019 Procedures Procedure Name Priority Date/Time Associated Diagnosis Comments CBC WITH AUTODIFFERENTIAL Routine 2024 12:29 PM SENIOR MATERIALS SCIENTIST COMPREHENSIVE METABOLIC PANEL Routine 10/25/2025 8:00 AM SENIOR MATERIALS SCIENTIST from Last 3 Months Results * CBC WITH AUTODIFFERENTIAL (10/25/2025 12:29 PM SENIOR MATERIALS SCIENTIST) Blood Samuel Montez MD HEMATOLOGY ORDERABLES Final Res ult * COMPREHENSIVE METABOLIC PANEL (10/25/2025 8:00 AM SENIOR MATERIALS SCIENTIST) Blood Samuel Montez MD CHEMISTRY ORDERABLES Final Resu lt from Last 3 Months Insurance [employer] PPO MCR Care Teams Tube Drawer Relationship Specialty Start Date End Date Larissa Wild MD PCP - General Internal Medicine 08/12/22
--- OUTSIDE RECORDS SUMMARY | 2025-11-09 13:54 | XMS_ITS | Clinical Summary ---
Author Organization [facility] [address] [facility] [address] Address [address] [place] [address] Care Team Providers Care Survey Operations Director Name Role Phone Christel Chang MD Unavailable [phone] Rufino Manley MD Unavailable [phone] Salvatore Brito MD Unavailable Jessy Wild MD Primary Care Provide r Jayashree Wheeler MD Unavailable [phone] Allergies Active Allergy Reactions Criticality Noted Date Comments Codeine Other (See comments),Unknown Low 04/16/2018 Severe stomach cramps Nitrofurantoin Monohyd/M-Cryst Hives Medium 05/07/2022 Nirmatrelvir-Ritonavir Shortness of breath High 01/23 Name brand Paxlovid Medications sertraline (ZOLOFT) 25 mg tablet Take 1 tablet (25 mg total) by mouth every morning Active Entresto 24-26 mg tablet TAKE 1 TABLET BY MOUTH TWICE A DAY 30 tablet 03/15/20 Active Additional Information Patient taking differently: 1 tablet oral 2 times daily, Reported on 10/07/2025 ascorbic acid (VITAMIN C) 500 mg tablet,chewable Take 1 tablet/chew tab (500 mg total) by mouth every morning Active cholecalciferol (VITAMIN D-3) 2000 unit capsule Take 1 capsule (2,000 Units total) by mouth every morning Active magnesium oxide (MAG-OX) 415 mg (250 mg elemental) tablet Take 250 mg by mouth every morning Active atorvastatin (LIPITOR) 40 mg tablet Take 1 tablet (40 mg total) by mouth nightly Active clopidogreL (PLAVIX) 75 mg tablet Take 1 tablet (75 mg total) by mouth every morning Active folic acid (FOLVITE) 1 mg tablet Take 1 tablet (1 mg total) by mouth every morning Active furosemide (LASIX) 20 mg tablet Take 1 tablet (20 mg total) by mouth daily Active ergocalciferol (VITAMIN D) 50,000 unit capsule Take 1 capsule (50,000 Units total) by mouth once a week On Friday01/01/20 23 Active levothyroxine (SYNTHROID) 50 mcg tabletIndications: Acquired hypothyroidism Take 1 tablet (50 mcg total) 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 90 tablet 3 02/17/20 24 Active Additional Information Patient taking differently:50 mcg oralNightly, Takes late in the evening, Reported on 10/07/2025 nitroglycerin (NITROSTAT) 0.[address] 1 tablet (0.4 mg total) under the tongue every 5 (five) minutes as needed 12/01/19 25 Active carvediloL (COREG) 12.5 mg tablet Take 1 tablet (12.5 mg total) by mouth 2 (two) times a day 11/05/20 24 Active aspirin 81 mg chewable tablet Take 1 tablet (81 mg total) by mouth daily And stop after 30 days completed 30 tablet 08/01/20 25 026 Active Additional Information Patient taking differently:81 mg oralEvery morning, And stop after 30 days completed, Reported on 09/14/[address] (PROTONIX) 40 mg EC tablet Take 1 tablet (40 mg total) by mouth 2 (two) times a day 120 tablet 08/11/20 25 Active ranolazine ER (RANEXA) 500 mg 12 hr tablet Take 1 tablet (500 mg total) by mouth 2 (two) times a day Active ondansetron ODT (ZOFRAN-ODT) 4 mg disintegrating tablet Take 1 tablet (4 mg total) by mouth every 8 (eight) hours as needed Active LORazepam (ATIVAN) 0.5 mg tablet Take 1 tablet (0.5 mg total) by mouth 2 (two) times a day Active acetaminophen 500 mg capsule Take by mouth every 6 (six) hours as needed for mild pain (pain scale 1-4) Active loperamide (IMODIUM) 2 mg capsule Take 1 capsule (2 mg total) by mouth 4 (four) times a day as needed for diarrhea Active bismuth subsalicylate (PEPTO-BISMOL ORAL) Take by mouth as needed Active dicyclomine (BENTYL) 10 mg capsule Take 1 capsule (10 mg total) by mouth 3 (three) times a day as needed (abdominal pain) 30 capsule 3 09/14/20 Active apixaban (ELIQUIS) 5 mg tablet Take 1 tablet (5 mg total) by mouth 2 (two) times a day 02/04/20 Active ferrous sulfate 325 mg (65 mg of elemental iron) tablet Take 1 tablet (325 mg total) by mouth daily with breakfast 02/04/20 Active Active Problems Problem Noted Date Diagnosed Date Stenosis of left carotid artery 11/03/2025 Gastric ulcer with hemorrhage 09/14/2025 Other irritable bowel syndrome 09/14/2025 Presence of Amulet left atrial appendage closure device 08/30/2025 Atrial fibrillation 08/30/2025 History of left atrial appendage closure 025 Dark stools 08/09/2025 Lightheadedness 08/08/2025 Black stools 08/08/2025 Acute blood loss anemia 08/08/2025 CAD S/P percutaneous coronary angioplasty 2024 Chest pain 07/18/2025 Acute urinary tract infection 06/27/2025 Carotid occlusion, left 10/21/2023 BMI 23.0-23.9, adult 02/18/2023 Assessment & Plan (02/18/2023 11:24 AM CDT): BMI is acceptable for this patient. Discussed healthy diet and importance of regular physical activity (20- 30min/day, 150min/wk). Anxiety state 02/12/2023 Gastroesophageal reflux disease without esophagi tis 02/11/2023 Generalized anxiety disorder 02/11/2023 Insomnia 02/11/2023 Internal carotid artery stenosis 02/11/2023 Dizziness 12/12/2022 History of cardioembolic stroke 08/19/2022 Vertebral artery stenosis, bilateral 06/28/2022 Overview (06/28/2022): Added automatically from request for surgery [id number] History of CVA (cerebrovascular accident) 2021 Acquired hypothyroidism 02/28/2022 Assessment & Plan (01/25/2025 9:17 AM NEIGHBORHOOD COORDINATOR): Chronic problem. Biochemically euthyroid on current levothyroxine 50mcg daily. Currently taking levothyroxine at 1130p d/t nausea when taking in morning. Will update TFTs. Verified phone #/address to contact re: results. Assessment & Plan (02/17/2024 12:05 PM CDT): Chronic, well controlled Continue Levothyroxine 50 mcg daily Update TFTS Assessment & Plan (02/18/2023 11:32 AM CDT): Chronic problem, levothyroxine 50mcg daily. Will update TFTs today. Verified phone #/address to contact re: results. Assessment & Plan (02/28/2022 12:35 PM CDT): Continue with levothyroxine 50 mcg daily I advised the patient on taking the medications at bedtime on an empty stomach since food can impair the absorption of the drug Will recheck levels and 4 weeks Occlusion of left carotid artery 02/26/2022 Overview (02/26/2022): Added automatically from request for surgery [id number] Moderate malnutrition 02/13/2022 ST elevation myocardial infa rction involving left anterior descending (LAD) coronary artery 02/04/2022 Hx of CABG 02/04/2022 Community acquired pneumonia of left lung 2021 Atrial fibrillation with RVR 02/04/2022 PAD (peripheral artery disease) 02/04/2022 Type 2 diabetes mellitus 06/13/2021 Tricuspid regurgitation 01/15/2019 Hemorrhagic shock 11/30/2018 Retroperitoneal bleed 11/30/2018 Iron deficiency anemia 04/22/2018 Aortic heart murmur 04/16/2018 Chronic anemia 10/31/2015 Congestive heart failure 07/22/2014 Hyperlipidemia 07/22/2014 Encounters Date Type Department Care Team Description 12/09/20 25 Orders Only [facility] [address] [place] [address] Jayashree Wheeler MD History of left atrial appendage closure (Primary Dx) 10/07/20 9:49 AM NEIGHBORHOOD COORDINATOR Anesthesia Event [facility] [address] [place] [address] Judie Bautista MD PhD 10/07/20 9:00 AM NEIGHBORHOOD COORDINATOR - 10/07/20 9:30 AM NEIGHBORHOOD COORDINATOR Surgery [facility] [address] [place] [address] Ponce Styles MD ESOPHAGOGASTRODUODENOSCOPY 10/07/20 7:50 AM NEIGHBORHOOD COORDINATOR - 10/07/20 10:54 AM NEIGHBORHOOD COORDINATOR Hospital Encounter [facility] [address] [place] [address] Ponce Styles MD Discharge Disposition: Discharge to home or self care 09/15/20 Telephone [facility] Gastroenterology at [address] [phone] Ponce Styles MD 09/14/20 10:20 AM CDT Lab [address] [phone] Acute blood loss anemia 09/14/20 9:15 AM CDT Office Visit [facility] Gastroenterology at [address] [phone] Ponce Styles MD Gastric ulcer with hemorrhage, unspecified chronicity (Primary Dx); Acute blood loss anemia; Other irritable bowel syndrome 09/14/20 Telephone [facility] Gastroenterology at [address] [phone] Ponce Styles MD 08/29/20 8:57 AM CDT Anesthesia Event [facility] [address] [place] [address] Delvis, Ali MD Ryan Quintana Emenike Adolphus Jr., MD 08/29/20 8:00 AM CDT - 08/29/20 10:00 AM CDT Surgery [facility] [address] [place] [address] Terell Begum MD PERC SANTANA CLOSE W/IMPLANT [id number] 08/29/20 6:05 AM CDT - 08/30/20 2:05 PM [place] [address] Terell Begum MD Atrial fibrillation with RVR (HCC) Discharge Disposition: Discharge to home or self care 08/22/20 1:41 PM CDT - 08/22/20 11:59 PM CDT Hospital Encounter [facility] [address] [place] [address] Atrial fibrillation with RVR (HCC) Discharge Disposition: Discharge to home or self care 08/19/20 9:45 AM CDT Pre-Admission Testing [facility] Pre Anesthesia Testing [address] [place] [address] Pre-op testing (Primary Dx); Type 2 diabetes mellitus with other specified complication, unspecified whether chcf insulin use (HCC) 08/12/20 Orders Only [facility] Non-invasive Cardiac Diagnostic Testing [address] [place] [address] Terell Begum MD Atrial fibrillation with RVR (HCC) (Primary Dx) 08/12/20 Telephone [facility] Gastroenterology at [address], [place] [phone] Karla Harvey PA 08/10/20 11:48 AM CDT Anesthesia Event [facility] [address] [place] [address] Judie Bautista MD PhD Desmond Vasquez AA 08/10/20 11:30 AM CDT - 08/10/20 12:00 PM CDT Surgery [facility] [address] [place] [address] Sylvia Denney MD ESOPHAGOGASTRODUODENOSCOPY 08/10/20 Cardiology Conference [facility] Non-invasive Cardiac Diagnostic Testing [id number] [place] [address] Shaq Cyr RN 08/08/20 2:21 PM CDT - 08/11/20 6:20 PM CDT Hospital Encounter [facility] [id number] [place] [address] Kiarra Vásquez MD Rudomiotov, Olga, MD Burton, Jeffrey Ryan, DO Onaghise, Jude, MD Lightheadedness (Primary Dx); Black stools; Dark stools; Acute blood loss anemia; Upper GI bleed; Hx of CABG; PAD (peripheral artery disease); ST elevation myocardial infarction involving left anterior descending (LAD) coronary artery (HCC); CAD S/P percutaneous coronary angioplasty Discharge Disposition: Discharge to home or self care from Last 3 Months Immunizations Immunization Administration Dates Next Due Influenza, Trivalent, High D ose, Split, Preservative Free, Intramuscular 08/30/2025 Surgical History Surgery Date Site/Laterality Comments ILIAC ARTERY STENT external CORONARY ARTERY BYPASS GRAFT 11/24/1998 - 11/23/1999 3V CORONARY ARTERY BYPASS GRAFT 11/24/1999 - 11/23/2000 revision OVARIAN CYST SURGERY BREAST LUMPECTOMY Right FEMORAL ARTERY STENT 11/24/2017 - 11/23/2018 Right SECTION, LOW TRANSVERSE - 11/23/1971 N/A SECTION, CLASSIC 11/24/1968 - 11/23/1969 N/A ESOPHAGOGASTRODUODENOSCOPY 08/10/2025 N/A CARDIAC CATHETERIZATION 07/29/2025 N/A Procedure: LEFT HEART CATHETERIZATION WITH CORONARY ANGIOGRAPHY AND WITH OR WITHOUT LEFT VENTRICULOGRAM [id number]; Surgeon: Terell Begum MD; Location: [facility]; Service: Cardiovascular; Laterality: N/A; Medical devices from this surgery are in the Medical Devices section. CARDIAC CATHETERIZATION 07/29/2025 N/A Procedure: CORONARY FLOW VELOCITY (CFR) / FRACTIONAL FLOW VELOCITY (FFR), 1ST VESSEL (+) [id number]; Surgeon: Terell Begum MD; Location: [facility]; Service: Cardiovascular; Laterality: N/A; Medical devices from this surgery are in the Medical Devices section. CARDIAC CATHETERIZATION 07/29/2025 N/A Procedure: IVUS/OCT CORS OR GRAFTS, FIRST VESSEL (+) [id number]; Surgeon: Terell Begum MD; Location: [facility]; Service: Cardiovascular; Laterality: N/A; Medical devices from this surgery are in the Medical Devices section. CARDIAC CATHETERIZATION 07/29/2025 N/A Procedure: PCI SAVITA MAJOR CORONARY [id number] - [id number]; Surgeon: Terell Begum MD; Location: [facility]; Service: Cardiovascular; Laterality: N/A; Medical devices from this surgery are in the Medical Devices section. IMPLANTABLE CARDIAC DEVICE 08/29/2025 N/A Procedure: PERC SANTANA CLOSE W/IMPLANT [id number]; Surgeon: Terell Begum MD; Location: EP LAB; Service: Cardiovascular; Laterality: N/A; Medical devices from this surgery are in the Medical Devices section. UPPER GASTROINTESTINAL ENDOSCOPY 10/07/2025 Medical History Medical History Date Comments Coronary artery disease A-fib (HCC) Artery dissection left external iliac PAD (peripheral artery disease) Retroperitoneal bleed PONV (postoperative nausea and vomiting) Motion sickness Hypertension Seasonal allergies GERD (gastroesophageal reflux disease) Hypothyroidism Stroke (HCC) 2022 left eye - visio n affected Eczema Ovarian cyst Stenosis of left carotid artery Anemia Depression Visual impairment of left eye Dizziness on standing Hyperlipidemia Family History Medical History Relation Name Comments Stroke Brother Alcohol abuse Father unknown Heart disease Mother Relation Name Status Comments Brother Father unknown Mother Social History Tobacco Use Types Packs/Day Years Used Date Smoking Tobacco: Former Cigarettes Q uit: 1997 Smokeless Tobacco: Never Alcohol Use Standard Drinks/Week Comments Yes 0 (1 standard drink = 0.6 oz pur e alcohol) PHQ-2 Answer Date Recorded PHQ-2 Total Score (If total score is 3 or more points, staff should administer the PHQ-9) 0 07/25/2022 Social Connection and Isolation Panel Answer Date Recorded Frequency of Communication with Friends and Fami ly Not on file 08/10/2025 Frequency of Social Gatherings with Friends and Family Not on file 08/10/2025 Attends Restorationism Services Not on file 08/10 Active Member of Clubs or Organizations Not on f ile 08/10/2025 Attends Club or Organization Meetings Not on karina e 08/10/2025 Are you , , di vorced, , never , or living with a partner? 08/10/2025 AUDIT-C Answer Date Recorded Q1: How often do you have a drink containing alc ohol? Monthly or less 10/07/2025 Q2: How many drinks containi ng alcohol do you have on a typical day when you are drinking? 1 or 2 10/07/2025 Q3: How often do you have si x or more drinks on one occasion? Never 10/07/2025 Overall Financial Resource Strain (CARDIA) Answe r Date Recorded How hard is it for you to pa y for the very basics like food, housing, medical care, and heating? Not hard at all 08/10/2025 Hunger Vital Sign Answer Date Recorded Within the past 12 months, y ou worried that your food would run out before you got the money to buy more. Never true 08/10/20 25 Within the past 12 months, t he food you bought just didn't last and you didn't have money to get more. Never true 08/10/2025 PRAPARE - Transportation Answer Date Re corded In the past 12 months, has l ack of transportation kept you from medical appointments or from getting medications? No 07/25 In the past 12 months, has l ack of transportation kept you from meetings, work, or from getting things needed for daily living? No 08/10/2025 Housing Stability Vital Sign Answer Hubert e Recorded In the last 12 months, was t here a time when you were not able to pay the mortgage or rent on time? No 08/10/2025 In the past 12 months, how m any times have you moved where you were living? 0 08/10/2025 At any time in the past 12 m [facility], were you homeless or living in a custodial (including now)? No 08/10/2025 [facility] Utilities Answer Date Recorded In the past 12 months has [facility] electric, gas, oil, or water company threatened to shut off services in your home? No 08/10/2025 Personal Safety Answer Date Recorded Have you ever been in or are you currently in a harmful physical or emotional relationship or is someone making you feel afraid or unsafe? Denies 10/07/2025 Education Answer Date Recorded What is the highest level of school you have completed or the highest degree you have received? High school graduate 08/10/2025 Comments No Sex and Gender Information Value Date Recorded Sex Assigned at Not on file Legal Sex Female 4:39 PM NEIGHBORHOOD COORDINATOR Gender Identity Not on file Sexual Orientation Not on file Last Filed Vital Signs Vital Sign Reading Time Taken Comments Blood Pressure 110/60 10/07/2025 10:25 AM NEIGHBORHOOD COORDINATOR Pulse 65 10/07/2025 10:25 AM NEIGHBORHOOD COORDINATOR Temperature 36.8 C (98.2 F) 10/07/2025 9:25 AM NEIGHBORHOOD COORDINATOR Respiratory Rate 21 10/07/2025 10:25 AM NEIGHBORHOOD COORDINATOR Oxygen Saturation 97% 10/07/2025 10:25 AM NEIGHBORHOOD COORDINATOR Inhaled Oxygen Concentration - - Weight 59.9 kg (132 lb) 10/07/2025 9:25 AM NEIGHBORHOOD COORDINATOR Height 149.9 cm (4' 11) 10/07/2025 9:25 AM NEIGHBORHOOD COORDINATOR Body Mass Index 26.66 10/07/2025 9:25 AM NEIGHBORHOOD COORDINATOR Plan of Treatment Upcoming Encounters Date Type Department Care Team (Latest Contact Info) Description 12/08/2025 1:30 PM NEIGHBORHOOD COORDINATOR Hospital Encounter [facility] [address] [place] [address] Jayashree Wheeler MD [address] [place] [address] 12/08/2025 1:30 PM NEIGHBORHOOD COORDINATOR - 12/08/2025 2:00 PM NEIGHBORHOOD COORDINATOR Surgery [facility] [address] [place] [address] Jayashree Wheeelr MD [address] [place] [address] TRANSESOPHAGEAL ECHOCARDIOGRAM 12/16/2025 10:40 AM NEIGHBORHOOD COORDINATOR Hospital Encounter [facility] [address] [place] [address] [place] [address] [place], [place] [phone] Stenosis of left carotid artery 12/16/2025 10:40 AM NEIGHBORHOOD COORDINATOR - 12/16/2025 12:26 PM NEIGHBORHOOD COORDINATOR Surgery [facility] [address] [place] [address] [place] [address] [facility] [place] [place] [id number] carotid angiogram [00083 (CPT )] Scheduled Procedures Name Priority Associated Diagnoses Date/Ti me TRANSESOPHAGEAL ECHOCARDIOGRAM History of left atrial appendage closure 12/08/2025 1:30 PM NEIGHBORHOOD COORDINATOR Health Maintenance Due Date Last Done Comments Albumin Creatinine Ratio, Urine 1950 Breast Cancer Screening-Mammogram 1950 Colon Cancer Screening-Colonoscopy 1950 Hepatitis C Screening 1950 Dilated Eye Exam 1951 Foot Exam 1951 Hepatitis B Screening 1969 Zoster Vaccine (1 of 2) 2001 Well Visit 65+ 02/03/2016 DTaP/Tdap/Td Vaccine (1 - Tdap) 02/03/2020 0 Osteoporosis Screening-Bone Density Scan 04/25/2023 04/25/2021 Depression Screening 07/25/2023 07/25/2022, 02/28/2022, 02/03/2022, Additional history exists Covid-19 Vaccine (2024-2 6 season) 2025 04/15/2022, 10/06/2021, 02/12/2021, Additional history exists Hemoglobin A1C 02/16/2026 08/19/2025, 02/11/2022 Lipid Panel 08/08/2026 08/08/2025, 01/22, 12/01/2018 eGFR 08/30/2026 08/30/2025, 07/26, 08/11/2025, Additional history exists Fall Risk Assessment 10/07/2026 10/07/2025 Pneumococcal vaccine 65+ Completed 10/30/2020, 01/23 Influenza Vaccine Completed 08/30/2025, , 10/15/2021, Additional history exists Medical Devices Implanted Type Area Regulation Supervisor Device Identifier Shelf Expiration Date Model / Serial / Lot Angio-Seal Vip 6fr Closere Device [id number] - [id number] Implanted:Qty: 1 on 05/08/2022 by Rfuino Manley MD at [facility] Collagen Right: Femoral [employer] 02/21/2023 [id number] / / [id number] Description:Femoral artery c losure Cordis Mynxgrip 5fr Balloon Catheter Integrate Sealant Lock Latex Free [id number] - [id number] Implanted:Qty: 1 on 10/21/2023 by Rufino Manley MD at [facility] Collagen Left: Common Femoral Artery Cordis 07/24/2025 [id number] / / [id number] [employer] Acculink 6-8mm 40mm 132cm Self Expandable Rapid Exchange Low [id number] - [id number] Implanted:Qty: 1 on 05/08/2022 by Rufino Manley MD at [facility] Stent Right: Carotid [employer] 12/24/2023 [id number] / / [id number] Description:Right carotid st ent [employer] Xact 8mm 20mm Self Expand Dense Scaffold Closed Cell [place] 44639-72 - [id number] Implanted:Qty: 1 on 05/08/2022 by Rufino Manley MD at [facility] Stent Right: Carotid [employer] 02/22/2024 [id number] / / [id number] [employer] Synergy Xd Monorail 3mm 12mm 144cm Delivery System 1 Access Port [id number] - [id number] Implanted:Qty: 1 on 08/14/2022 by Rufino Manley MD at [facility] Stent [employer] 06/02/2024 [id number] / / [id number] [employer] Synergy Xd Monorail 4.5mm 16mm 144cm Delivery System 1 Access [id number] - [id number] Implanted:Qty: 1 on 08/14/2022 by Rufino Manley MD at [facility] Stent [employer] 08/06/2023 [id number] / / [id number] [employer] Synergy Xd Monorail 4.5mm 12mm 144cm Delivery System 1 Access [id number] - [id number] Implanted:Qty: 1 on 08/14/2022 by Rufino Manley MD at [facility] Stent [employer] 03/11/2024 [id number] / / [id number] Description:Left Vertebral a rtery [employer] [id number] Synergy Xd Monorail 3.5mm 12mm 144cm Delivery System 1 Access - [id number] Implanted:Qty: 1 on 02/05/2022 by Terell Begum MD at [facility] [employer] 09/10/2023 [id number] / / [employer] [id number] Synergy Xd Monorail 4mm 16mm 144cm Delivery System 1 Access Port - [id number] Implanted:Qty: 1 on 02/05/2022 by Terell Begum MD at [facility] [employer] 02/15/2023 [id number] / / [employer] Angio-Seal Vip 6fr Closere Device [id number] - [id number] Implanted:Qty: 1 on 08/14/2022 by Rufino Manley MD at [facility] [employer] [id number] / / [employer] Synergy Xd Monorail 3mm 20mm 144cm Delivery System 1 Access Port [id number] - [id number] Implanted:Qty: 1 on 07/29/2025 by Christel Chang MD at [facility] [email or web address] 12/22/2026 [id number] / / [id number] [employer] Synergy Xd Monorail 3mm 12mm 144cm Delivery System 1 Access Port [id number] - [id number] Implanted:Qty: 1 on 07/29/2025 by Christel Chang MD at [facility] [employer] 02/15/2027 [id number] / / [id number] [employer] System Closure Repair Femoral Artery Suture Mediated Perclose Prostyle 99179-51 - [id number] Implanted:Qty: 1 on 08/29/2025 by Terell Begum MD at [facility] [employer] 06/23/2027 [id number] / / [id number] [employer] Occluder Cvasc Santana Flexible Braided Amplatzer Amulet 20mm Nitinol [id number] - [id number] Implanted:Qty: 1 on 08/29/2025 by Terell Begum MD at [facility] Vascular 07/24/2029 9-ACP2-00 7 / [id number] Procedures Procedure Name Priority Date/Time Associated Diagnosis Comments ESOPHAGOGASTRODUODENOSCOPY 10/07 9:49 AM NEIGHBORHOOD COORDINATOR Gastric ulcer with hemorrhage, unspecified chronicity EGD 10/07/2025 9:47 AM NEIGHBORHOOD COORDINATOR CBC WITHOUT DIFFERENTIAL Routine 025 10:52 AM CDT Acute blood loss anemia CBC WITHOUT DIFFERENTIAL Routine 025 12:47 PM CDT TRANSTHORACIC ECHO (TTE) LIMITED/FOLLOW UP W LTD DOPPLER/CF WO CONTRAST Routine 08/30/2025 7:22 AM CDT EGFR Routine 08/30/2025 6:09 AM CDT HEMOGLOBIN AND HEMATOCRIT Timed 2024 6:09 AM CDT IRON PROFILE W/ IBC Routine 08/30/2025 6:09 AM CDT BASIC METABOLIC PANEL Routine 08/30/2025 6:09 AM CDT TRANSFUSE RED BLOOD CELLS Timed 2024 1:00 AM CDT PREPARE RBC Routine 08/30/2025 12:50 AM CDT CBC WITHOUT DIFFERENTIAL Routine 025 4:56 PM CDT PERC SANTANA CLOSURE W/IMPLANT (WATCHMAN) 01130 Routine 08/29/2025 10:42 AM CDT Atrial fibrillation with RVR (HCC) POCT ACTIVATED CLOTTING TIME , HIGH RANGE Routine 08/29/2025 10:22 AM CDT POCT ACTIVATED CLOTTING TIME , HIGH RANGE Routine 08/29/2025 10:00 AM CDT POCT ACTIVATED CLOTTING TIME , HIGH RANGE Routine 08/29/2025 9:36 AM CDT TN AN ELECTIVE ENDOTRACHEAL AIRWAY Routine 08/29/2025 9:13 AM CDT PREPARE RBC STAT 08/29/2025 6:59 AM CDT TYPE AND SCREEN Timed 08/29/2025 6:59 AM CDT POTASSIUM, WHOLE BLOOD STAT 6:[address] HEART MORPHOLOGY W CONTRAST Schedule Routine, Read Routine (OP Routine) 08/22/2025 2:24 PM CDT Atrial fibrillation with RVR (HCC) DIFFERENTIAL AUTO Routine 08/19/2025 11:42 AM CDT CBC WITH AUTO DIFFERENTIAL Routine 08/19 11:42 AM CDT HEMOGLOBIN A1C Routine 08/19/2025 11:42 AM CDT Pre-op testing Type 2 diabetes mellitus with other specified complication, unspecified whether chcf insulin use (HCC) EGFR Routine 08/19/2025 11:25 AM CDT PROTIME-INR Routine 08/19/2025 11:25 AM CDT COMPREHENSIVE METABOLIC PANEL Routine 11:25 AM CDT APTT Routine 08/19/2025 11:25 AM CDT TYPE AND SCREEN Routine 08/19/2025 11:08 AM CDT Pre-op testing ECG 12-LEAD Routine 08/19/2025 10:35 AM CDT EGFR Routine 08/11/2025 4:36 AM CDT RENAL FUNCTION PANEL Routine 08/11/2025 4:36 AM CDT CBC WITHOUT DIFFERENTIAL Routine 025 4:36 AM CDT ESOPHAGOGASTRODUODENOSCOPY 08/10 11:52 AM CDT Black stools Acute blood loss anemia EGD 08/10/2025 10:58 AM CDT EGFR Routine 08/10/2025 4:10 AM CDT FERRITIN Routine 08/10/2025 4:10 AM CDT IRON PROFILE W/ IBC Routine 08/10/2025 4:10 AM CDT PROTIME-INR Routine 08/10/2025 4:10 AM CDT RENAL FUNCTION PANEL Routine 08/10/2025 4:10 AM CDT CBC WITHOUT DIFFERENTIAL Routine 025 4:10 AM CDT LIPID PANEL Routine 08/08/2025 11:49 PM CDT from Last 3 Months or Most Recently Relevant to Health Maintenance Results * EGD (10/07/2025 9:47 AM NEIGHBORHOOD COORDINATOR) Anatomical Region Laterality Modality Other Narrative Procedure Note Ponce Styles MD - 10/07/2025 9:47 AM CST [facility] Endoscopy Lab Patient Name: Karen Casarez Procedure Date: 10/07/2025 9:47 AM Date of : 1950 Admit Type: Outpatient Age: 75 Gender: Female Note Status: Finalized Attending MD: Ponce Styles M.D., Procedure Date: 10/07/2025 Procedure: Upper GI endoscopy Indications: Follow-up of chronic gastric ulcer withhemorrhage Providers: Ponce Styles M.D., DANIE Hernandez (Anesthesia Staff), Arpita Matta RN, Kileyannie, Stonecutter Apprentice Hand Referring MD: Larissa Wild M.D. Medicines: Monitored Anesthesia Care Complications: No immediate complications. Estimated Blood Loss: Estimated blood loss: none. Procedure: After obtaining informed consent, the endoscope was passed under direct vision. Throughout theprocedure, the patient's blood pressure, pulse, and oxygen saturations were monitored continuously. The scopewas passed under direct vision. The was introducedthrough the mouth, and advanced to the second part of duodenum. The upper GI endoscopy was accomplished without difficulty. The patient tolerated the procedure well. Findings: The esophagus was normal. A small healed ulcer was found at the pylorus. The scar tissue was healthy in appearance. The examined duodenum was normal. Impression: - Normal esophagus. - Scar in the pylorus. - Normal examined duodenum. - No specimens collected. Recommendation: - No aspirin, ibuprofen, naproxen, or other non-steroidal anti-inflammatory drugs. - Follow an antireflux regimen. Procedure Code(s): --- Professional --- 63292, Esophagogastroduodenoscopy, flexible, transoral; diagnostic, including collection of specimen(s) by brushing or washing, when performed (separate procedure) Diagnosis Code(s): --- Professional --- K31.89, Other diseases of stomach and duodenum K25.4, Chronic or unspecified gastric ulcer with hemorrhage CPT copyright 2022 [employer]. All rights reserved. The codes documented in this report are preliminary and upon cnc maintenance mechanic reviewmay be revised to meet current compliance requirements. Electronically signed by Ponce Styles M.D. Ponce Styles M.D. 10/07/2025 10:10:41 AM Number of Addenda: 0 Note Initiated On: 10/07/2025 9:47 AM Ponce Styles MD ENDOSCOPY PROCEDURES Ed ited Result - Final * (ABNORMAL) CBC without differential (09/14/2025 10:52 AM CDT) WBC 6.85 3.80 - 9.90 K/cumm Hgb 8.8(L) 11.9 - 15.5 g/dL [facility] Hct 30.6(L) 35.6 - 45.5 % [facility] Plt 384 150 - 400 K/cumm [facility] MPV 10.3 9.1 - 12.3 fL [facility] RBC 3.32(L) 3.90 - 5.20 M/cumm [facility] MCV 92.2 81.3 - 96.4 fL [facility] MCH 26.5(L) 27.1 - 33.3 pg [facility] MCHC 28.8(L) 32.3 - 35.7 g/dL [facility] RDW CV 16.9(H) 11.1 - 14.9 % [facility] RDW SD 57.1(H) 35.7 - 48.1 fL [facility] NRBC abs 0.00 0.00 - 0.01 K/cumm [facility] Blood 09/14/2025 10:5 2 AM CDT 09/14/2025 12:05 PM CDT us Ponce Styles MD LAB BLOOD ORDERABLES Fi nal Result Performing Organization Address City/[facility]/ZIP Co de Phone Number ANITA CORONEL [address] [place] [address] * (ABNORMAL) CBC without differential (08/30/2025 12:47 PM CDT) WBC 7.34 3.80 - 9.90 K/cumm Hgb 8.0(L) 11.9 - 15.5 g/dL [facility] Hct 25.6(L) 35.6 - 45.5 % [facility] Plt 222 150 - 400 K/cumm [facility] MPV 10.0 9.1 - 12.3 fL [facility] RBC 2.81(L) 3.90 - 5.20 M/cumm [facility] MCV 91.1 81.3 - 96.4 fL [facility] MCH 28.5 27.1 - 33.3 pg [facility] MCHC 31.3(L) 32.3 - 35.7 g/dL [facility] RDW CV 16.1(H) 11.1 - 14.9 % [facility] RDW SD 53.5(H) 35.7 - 48.1 fL [facility] NRBC abs 0.00 0.00 - 0.01 K/cumm [facility] Blood 08/30/2025 12:4 7 PM CDT 08/30/2025 12:50 PM CDT us Isela Tomlin RUG SCRATCHER LAB BLOOD ORDERABLES Final Result Performing Organization Address City/[facility]/ZIP Co de Phone Number ANITA CORONEL [address] [place] [place] [address] * TRANSTHORACIC ECHO (TTE) LIMITED/FOLLOW UP W LTD DOPPLER/CF WO CONTRAST (08/30/2025 7:22 AM CDT) EF Mod BP 52 % CONS SCIMAGE Anatomical Region Laterality Modality Ultrasound 08/30/2025 7:02 AM CDT Narrative 08/30/2025 8:[place] [address] Limited Echocardiogram Report Patient Name: KAREN CASAREZ P : 1950 Study Date: 08/30/2025 7:02:08 AM Sex: F Tech: Location: [id number] Ref Provider: TERELL BEGUM Height(Cm): 149 BSA: 1.6 Weight(Kg): 62 Heart Rate: 77 BP: 153 / 60 Quality: Good Order Provider: TERELL BEGUM PROCEDURES: Echocardiographic Report: Limited transthoracic echocardiogram with 2D and color Doppler. INDICATIONS: S/P LAAO 20mm. MEASUREMENTS: 2D/MM Value Range EF Mod BP 52 % [ 54 - 74 ] 2D/MM Value Range - FINDINGS: Left Ventricle: Normal left ventricular wall thickness. Left ventricular systolic function at the lower limit of normal. Ejection fraction is measured at 52 %. Left Atrium: There is moderate enlargement of left atrium. Right Atrium: There is moderate enlargement of right atrium. Mitral Valve: Moderate to severe mitral valve regurgitation. Pericardium: Normal pericardium with no significant pericardial effusion. CONCLUSIONS: Normal left ventricular wall thickness. Left ventricular systolic function at the lower limit of normal. Ejection fraction is measured at 52 %. There is moderate enlargement of left atrium. Amulet device in place in the left atrial appendage. There is moderate enlargement of right atrium. Moderate to severe mitral valve regurgitation. Normal pericardium with no significant pericardial effusion. Limited 2D only echo study. Electronically Signed By: Bhupendra Goldberg MD 08/30/2025 8:48:12 AM CDT Procedure Note Bhupendra Goldberg MD - 08/30/2025 [place] [address] Limited Echocardiogram Report Patient Name: KAREN CASAREZ P : 1950 Study Date: 08/30/2025 7:02:08 AM Sex: F Tech: Location: [id number] Ref Provider: TERELL BEGUM Height(Cm): 149 BSA: 1.6 Weight(Kg): 62 Heart Rate: 77 BP: 153 / 60 Quality: Good Order Provider: TERELL BEGUM PROCEDURES: Echocardiographic Report: Limited transthoracic echocardiogram with 2D and color Doppler. INDICATIONS: S/P LAAO 20mm. MEASUREMENTS: 2D/MM Value Range EF Mod BP 52 % [ 54 - 74 ] 2D/MM Value Range - FINDINGS: Left Ventricle: Normal left ventricular wall thickness. Left ventricular systolic functionat the lower limit of normal. Ejection fraction is measured at 52 %. Left Atrium: There is moderate enlargement of left atrium. Right Atrium: There is moderate enlargement of right atrium. Mitral Valve: Moderate to severe mitral valve regurgitation. Pericardium: Normal pericardium with no significant pericardial effusion. CONCLUSIONS: Normal left ventricular wall thickness. Left ventricular systolic functionat the lower limit of normal. Ejection fraction is measured at 52 %. There is moderate enlargement of left atrium. Amulet device in place inthe left atrial appendage. There is moderate enlargement of right atrium. Moderate to severe mitral valve regurgitation. Normal pericardium with no significant pericardial effusion. Limited 2D only echo study. Electronically Signed By: Bhupendra Goldberg MD 08/30/2025 8:48:12 AM CDT Terell Begum MD CV ECHO PROCEDURES Final Result * eGFR (08/30/2025 6:09 AM CDT) eGFR >90 >=60 mL/min/1. 73 m2 Comment: Interpretive Data Reference Interval Normal >/= 90 mL/min/1.73m2 Mildly decreased* 60 - 89 mL/min/1.73m2 Mildly to moderately decreased 45 - 59 mL/min/1.73m2 Moderately to severely decreased 30 - 44 mL/min/1.73m2 Severely decreased 15 - 29 mL/min/1.73m2 Kidney Failure < 15 mL/min/1.73m2 *Relative to young adult level Estimated glomerular filtration rate is determined by the 2020 CKD-EPI equation recommended by the National Kidney Foundation (A Unifying Approach to GFR Estimation: Recommendations of the NKF-ASK Task Force on Reassessing the Inclusion of Race in Diagnosing Kidney Disease, JASN 2020). The CKD-EPI equation should not be used for patients with unstable renal function and has not been validated in children and those over 70. Current interpretive data was last reviewed 2021. Blood 08/30/2025 6:09 AM CDT 08/30/2025 6:21 AM CDT Jayashree Wheeler MD LAB BLOOD ORDERABLES F inal Result [facility] [address] [place] [address] * (ABNORMAL) Iron profile w/ IBC (08/30/2025 6:09 AM CDT) Iron 25(L) 35 - 145 mcg/dl TIBC 308 250 - 400 mcg/dL [facility]NOTE 3] Transferrin saturation 8(L) 20 - 50 % ANITA Blood 08/30/2025 6:09 AM CDT 08/30/2025 6:21 AM CDT us Jayashree Wheeler MD LAB BLOOD ORDERABLES F inal Result Performing Organization Address [facility] Co de Phone Number ANITA [address] [place] [address] * (ABNORMAL) Hemoglobin and hematocrit (08/30/2025 6:09 AM CDT) Hgb 7.8(L) 11.9 - 15.5 g/dL Hct 25.1(L) 35.6 - 45.5 % [facility] Blood 08/30/2025 6:09 AM CDT 08/30/2025 6:22 AM CDT Terell Begum MD LAB BLOOD ORDERABLES Final Resu lt Performing Organization Address [facility] de Phone Number [facility] [address] [place] [address] * (ABNORMAL) Basic metabolic panel (08/30/2025 6:09 AM CDT) Sodium 138 135 - 145 mmol/L Potassium, pl 3.8 3.3 - 4.9 mmol/L [facility] Chloride 104 97 - 110 mmol/L [facility] CO2 22 22 - 32 mmol/L [facility] Anion gap 12 2 - 15 mmol/L [facility] BUN 14 6 - 25 mg/dL [facility] Creatinine 0.58(L) 0.60 - 1.10 mg/dL [facility] Glucose 99 70 - 199 mg/dL [facility] Comment: Interpretive Data Fasting glucose >/= 126 mg/dl is diagnostic for diabetes. Fasting is defined as no caloric intake for at least 8 hours. Fasting glucose between 100 mg/dl to 125 mg/dl is diagnostic of prediabetes. In a patient with classic symptoms of hyperglycemia or hyperglycemic crisis, a random glucose >/= 200 mg/dl is diagnostic for diabetes. In the absence of unequivocal hyperglycemia, results should be confirmed by repeat testing. The classification and Diagnosis of Diabetes Diabetes Care 202; 46: S19-S40. Current interpretive data was last revised 2022. Calcium 8.6 8.5 - 10.3 mg/dL [facility] Blood 08/30/2025 6:09 AM CDT 08/30/2025 6:21 AM CDT Jayashree Wheeler MD LAB BLOOD ORDERABLES F inal Result Performing Organization Address [facility]/ZIP Co de Phone Number ANITA CORONEL [address] [place] [place] [address] * Transfuse RBC (08/30/2025 3:46 AM CDT) Blood Isela Tomlin NP BLOOD TRANSFUSION ORDERABL ES Final Result Performing Organization Address [facility] Co de Phone Number REYDAJA CORONEL [address] [facility] [place] [address] * Prepare RBC (08/30/2025 12:50 AM CDT) Product code [id number] Unit Number [id number] [facility] Product Blood Type APOS [facility] Dispense Status PRESUMED TRANSFUSED [facility] Product code [id number] [facility] Unit Number [id number] [facility] Product Blood Type APOS [facility] Dispense Status RETURNED [facility] Blood 08/30/2025 12:5 0 AM CDT 08/30/2025 12:50 AM CDT Terell Begum MD BLOOD BANK PRODUCT ORDERABLES F inal Result Performing Organization Address [facility] Co de Phone Number ANITA CORONEL [address] [facility] [place] [place] [address] * (ABNORMAL) CBC without differential (08/29/2025 4:56 PM CDT) WBC 7.84 3.80 - 9.90 K/cumm Hgb 6.3(C) 11.9 - 15.5 g/dL [facility] Comment:This result has been called to Qi Muñoz RN by [id number] on 08/29/2025 17:25:47, and has been read back. Hct 21.4(L) 35.6 - 45.5 % [facility] Plt 241 150 - 400 K/cumm [facility] MPV 10.1 9.1 - 12.3 fL [facility] RBC 2.30(L) 3.90 - 5.20 M/cumm [facility] MCV 93.0 81.3 - 96.4 fL [facility] MCH 27.4 27.1 - 33.3 pg [facility] MCHC 29.4(L) 32.3 - 35.7 g/dL [facility] RDW CV 16.2(H) 11.1 - 14.9 % [facility] RDW SD 55.2(H) 35.7 - 48.1 fL [facility] NRBC abs 0.00 0.00 - 0.01 K/cumm [facility] Blood 08/29/2025 4:56 PM CDT 08/29/2025 5:13 PM CDT us Jayashree Wheeler MD LAB BLOOD ORDERABLES F inal Result Performing Organization Address City/[facility]/ZIP Co de Phone Number [facility] [address] [place], [place] [id number] * (ABNORMAL) POC Activated Clotting Time, High Range (08/29/2025 10:22 AM CDT) ACT 293(H) 87 - 138 sec Blood 08/29/2025 10:2 2 AM CDT 08/29/2025 10:22 AM CDT Terell Begum MD LAB BLOOD ORDERABLES Final Resu lt Performing Organization Address [facility]/ZIP Co de Phone Number [facility] [address] [place] [address] * (ABNORMAL) POC Activated Clotting Time, High Range (08/29/2025 10:00 AM CDT) ACT 255(H) 87 - 138 sec Blood 08/29/2025 10:0 0 AM CDT 08/29/2025 10:00 AM CDT Terell Begum MD LAB BLOOD ORDERABLES Final Resu lt Performing Organization Address [facility] de Phone Number ANITA CORONEL [address] [facility] [place] [address] * (ABNORMAL) POC Activated Clotting Time, High Range (08/29/2025 9:36 AM CDT) ACT 239(H) 87 - 138 sec Blood 08/29/2025 9:36 AM CDT 08/29/2025 9:36 AM CDT Result [facility] Terell Begum MD LAB BLOOD ORDERABLES Final Resu lt Performing Organization Address [facility] de Phone Number REYDAJA CORONEL [address] [facility] [place] [address] * TN AN ELECTIVE ENDOTRACHEAL AIRWAY (08/29/2025 9:13 AM CDT) Narrative Desmond Vasquez AA - 08/29/2025 9:13 AM CDT Desmond Vasquez AA 08/29/2025 9:13 AM Airway Patient location: OR Urgency: elective Indications for airway management: anesthesia Difficult airway: no Staff: Supervising provider: Scooby Carrasco MD Placed by: AA: Desmond Vasquez AA Emergent airway documentation: Risks and benefits discussed: yes Consent obtained: yes Consent given by: patient Airway prep: Preoxygenated: yes Patient position: sniffing Mask difficulty assessment: 1 - vent by mask Spontaneous ventilation during airway: absent Sedation level during airway: GA Final airway details: Final airway type: endotracheal airway Tube type: ETT ETT size: 7.5 mm Cuffed: yes Technique used for successful ETT placement: direct laryngoscopy Insertion site: oral Blade type: Fontenot Blade size: 2 Cormack-Lehane (direct): grade I - full view of glottis Cuff inflated with: air Placement verified by: auscultation and CO2 detection Airway secured with: silk tape Number of attempts: 1 us Samantha Edmondson MD ANESTHESIA ORDERABLES Final Resu lt * Prepare RBC: 2 Units (08/29/2025 6:59 AM CDT) Product code [id number] [facility] Unit Number [id number] [facility] Product Blood Type APOS [facility] Dispense Status RETURNED [facility] Product code [id number] Unit Number [id number] [id number] [facility] Product Blood Type APOS [facility] Dispense Status RETURNED [facility] Blood 08/29/2025 6:59 AM CDT Narrative [facility] - 08/30/2025 1:00 AM CDT Specify Procedure:->LAAO Are special requirements needed? (All products are leukoreduced and CMV- safe)- >No Date required:-[id number] LRRBC # of [id number] Reasons:-Hold for procedure (specify procedure)} Terell Begum MD BLOOD BANK PRODUCT ORDERABLES F inal Result ANITA CORONEL [address] [place] [address] * Type and screen (08/29/2025 6:59 AM CDT) Nettie, indirect Negative ABO Rh A Positive [facility] Blood 08/29/2025 6:59 AM CDT 08/29/2025 1:19 PM CDT Narrative [facility] - 08/29/2025 2:04 PM CDT Has the patient had Daratumumab or Isatuximab in the past 6 months?->Unknown Terell Begum MD LAB BLOOD BANK TEST ORDERABLES Final Result ANITA CORONEL [address] [facility] [place] [address] * Potassium, whole blood (08/29/2025 6:54 AM CDT) Potassium, bld 3.6 3.3 - 4.9 mmol/L Comment: Interpretive Data This method is not able to assess for hemolysis, which may falsely increase potassium concentrations. If further testing is needed to evaluate this result, consider in-laboratory plasma potassium. Current Interpretive Data was last revised on 2022. Blood 08/29/2025 6:54 AM CDT 08/29/2025 7:04 AM CDT us Luciana Marshall NP LAB BLOOD ORDERABLES Final Result ANITA CORONEL [address] [place] [address] * CT Heart Morphology W Contrast (08/22/2025 2:24 PM CDT) Anatomical Region Laterality Modality Chest N/A Computed Tomogra phy 08/22/2025 4:04 PM CDT Impressions 08/22/2025 5:07 PM CDT 1. Left atrial appendage measurements for placement of occlusion device as described. No evidence of left atrial appendage thrombus. 2. Moderate cardiomegaly with pulmonary hypertension. 4. Volume overload with pulmonary edema and a moderate right and small left pleural effusion. 5. Age-indeterminate but probably chronic moderate T5 and severe T6 compression fractures. This can be correlated with point tenderness. Dictated by: Eduard Miller MD The radiology attending physician has personally reviewed this study, and had reviewed and/or edited this written report and agrees with it. Electronically signed by: Regan Cho M.D. Narrative 08/22/2025 5:07 PM CDT HISTORY: 75-year-old female with a history of coronary artery disease with multiple coronary artery stents and bypass graft with recent stent placement to the left circumflex artery. Measurements in preparation for left atrial appendage occlusion device placement. COMPARISON: 08/08/2025 TECHNIQUE: Heart CT performed during administration of 95 mL of Optiray 350, intravenously per pulmonary vein protocol. Images were transferred to an independent workstation for additional 3D post-processing. FINDINGS: Left atrial depth: 14 mm Left atrial length: 20 mm Left atrial appendage ostium: Area 315 mm squared, Circumference 65 mm, Diameter 25 x 22 mm. Left atrial appendage shape: [employer] No evidence of left atrial appendage thrombus. Left atrial diameter (atrial diastole): 48 mm (anterior-posterior) Interatrial septum measures 2 mm thick and is free of device or thrombus. Esophagus lies immediately posterior to the Right Inferior pulmonary vein. Other findings: There are postsurgical changes of coronary artery bypass graft with stent placement in the proximal right coronary artery, left main coronary artery, and proximal left circumflex artery. There is occlusion of the venous graft. There is scattered severe calcified plaque adjacent to the coronary stents. There is moderate enlargement of the heart with reflux of contrast into the inferior vena cava and hepatic veins. The caliber of the main pulmonary artery is enlarged at 3.2 cm. There is moderate to severe atherosclerosis of the thoracic aorta and its proximal great branches, including the superior mesenteric artery. There is a moderate right and small left pleural effusion with underlying atelectasis. Mild pulmonary edema. There is a age indeterminate moderate compression fracture of T5 and severe compression fracture of T6. Procedure Note Regan Cho MD - 08/22/2025 HISTORY: 75-year-old female with a history of coronary artery disease with multiple coronary artery stents and bypass graft with recent stent placement to the left circumflex artery. Measurements in preparation for left atrial appendage occlusion device placement. COMPARISON: 08/08/2025 TECHNIQUE: Heart CT performed during administration of 95 mL of Optiray 350, intravenously per pulmonary vein protocol. Images were transferred to an independent workstation for additional 3D post-processing. FINDINGS: Left atrial depth: 14 mm Left atrial length: 20 mm Left atrial appendage ostium: Area 315 mm squared, Circumference 65 mm, Diameter 25 x 22 mm. Left atrial appendage shape: [employer] No evidence of left atrial appendage thrombus. Left atrial diameter (atrial diastole): 48 mm (anterior-posterior) Interatrial septum measures 2 mm thick and is free of device or thrombus. Esophagus lies immediately posterior to the Right Inferior pulmonary vein. Other findings: There are postsurgical changes of coronary artery bypass graft with stent placement in the proximal right coronary artery, left main coronary artery, and proximal left circumflex artery. There is occlusion of the venous graft. There is scattered severe calcified plaque adjacent to the coronary stents. There is moderate enlargement of the heart with reflux of contrast into the inferior vena cava and hepatic veins. The caliber of the main pulmonary artery is enlarged at 3.2 cm. There is moderate to severe atherosclerosis of the thoracic aorta and its proximal great branches, including the superior mesenteric artery. There is a moderate right and small left pleural effusion with underlying atelectasis. Mild pulmonary edema. There is a age indeterminate moderate compression fracture of T5 and severe compression fracture of T6. IMPRESSION: 1. Left atrial appendage measurements for placement of occlusion device as described. No evidence of left atrial appendage thrombus. 2. Moderate cardiomegaly with pulmonary hypertension. 4. Volume overload with pulmonary edema and a moderate right and small left pleural effusion. 5. Age-indeterminate but probably chronic moderate T5 and severe T6 compression fractures. This can be correlated with point tenderness. Dictated by: Eduard Miller MD The radiology attending physician has personally reviewed this study, and had reviewed and/or edited this written report and agrees with it. Electronically signed by: Regan Cho M.D. Terell Begum MD IM CT PROCEDURES Final Result * Differential, auto (08/19/2025 11:42 AM CDT) Neutrophil abs 4.77 1.50 - 6.50 K/cumm Imm gran abs 0.03 0.00 - 0.10 K/cumm [facility] Lymphocyte abs 0.95 0.80 - 3.30 K/cumm [facility] Monocyte abs 0.58 0.20 - 0.80 K/cumm [facility] Eosinophil abs 0.22 0.00 - 0.50 K/cumm [facility] Basophil abs 0.09 0.00 - 0.10 K/cumm [facility] Neutrophil pct 71.8 % [facility] Comment: Interpretive Data Percent cell count reference ranges are not reported, since discordance with absolute values may lead to misinterpretation of CBC data. Current Interpretive Data was last revised on 2018. Imm gran pct 0.5 % [facility] Comment: Interpretive Data Percent cell count reference ranges are not reported, since discordance with absolute values may lead to misinterpretation of CBC data. Current Interpretive Data was last revised on 2018. Lymphocyte pct 14.3 % [facility] Comment: Interpretive Data Percent cell count reference ranges are not reported, since discordance with absolute values may lead to misinterpretation of CBC data. Current Interpretive Data was last revised on 2018. Monocyte pct 8.7 % [facility] Comment: Interpretive Data Percent cell count reference ranges are not reported, since discordance with absolute values may lead to misinterpretation of CBC data. Current Interpretive Data was last revised on 2018. Eosinophil pct 3.3 % [facility] Comment: Interpretive Data Percent cell count reference ranges are not reported, since discordance with absolute values may lead to misinterpretation of CBC data. Current Interpretive Data was last revised on 2018. Basophil pct 1.4 % [facility] Comment: Interpretive Data Percent cell count reference ranges are not reported, since discordance with absolute values may lead to misinterpretation of CBC data. Current Interpretive Data was last revised on 2018. Blood 08/19/2025 11:4 2 AM CDT 08/20/2025 5:56 AM CDT us Terell Begum MD LAB BLOOD ORDERABLES Final Resu lt [facility] [address] Department [place] [address] * (ABNORMAL) CBC with auto differential (08/19/2025 11:42 AM CDT) WBC 6.64 3.80 - 9.90 K/cumm Hgb 7.8(L) 11.9 - 15.5 g/dL [facility] Hct 25.7(L) 35.6 - 45.5 % [facility] Plt 289 150 - 400 K/cumm [facility] MPV 10.2 9.1 - 12.3 fL [facility] RBC 2.67(L) 3.90 - 5.20 M/cumm [facility] MCV 96.3 81.3 - 96.4 fL [facility] MCH 29.2 27.1 - 33.3 pg [facility] MCHC 30.4(L) 32.3 - 35.7 g/dL [facility] RDW CV 17.7(H) 11.1 - 14.9 % [facility] RDW SD 62.2(H) 35.7 - 48.1 fL [facility] NRBC abs 0.00 0.00 - 0.01 K/cumm [facility] Blood 08/19/2025 11:4 2 AM CDT 08/20/2025 5:56 AM CDT Result [facility] Terell Begum MD LAB BLOOD ORDERABLES Final Resu lt Performing Organization Address [facility] Co de Phone Number [facility] [address] [place] [address] * Hemoglobin A1c (08/19/2025 11:42 AM CDT) Pathologist [facility] Hgb A1C 4.7 4.0 - 5.6 % Estimated Average Glucose 88 mg/dL [facility] Comment: The ADA recommends reporting an estimated Average Glucose (eAG) with all Hemoglobin A1c results using the equation derived from a study of 507 normal and diabetic adults. Minority populations were underrepresented and children were not included. (Diabetes Care 31:9375-8564, 2008). The eAG is not equivalent to a fasting glucose. Blood 08/19/2025 11:4 2 AM CDT 08/19/2025 11:42 AM CDT Terell Begum MD LAB BLOOD ORDERABLES Final Resu lt Performing Organization Address [facility] Co de Phone Number [facility] CORONEL [address] [place], [place] [phone] * eGFR (08/19/2025 11:25 AM CDT) Pathologist [facility] eGFR >90 >=60 mL/min/1. 73 m2 Comment: Interpretive Data Reference Interval Normal >/= 90 mL/min/1.73m2 Mildly decreased* 60 - 89 mL/min/1.73m2 Mildly to moderately decreased 45 - 59 mL/min/1.73m2 Moderately to severely decreased 30 - 44 mL/min/1.73m2 Severely decreased 15 - 29 mL/min/1.73m2 Kidney Failure < 15 mL/min/1.73m2 *Relative to young adult level Estimated glomerular filtration rate is determined by the 2020 CKD-EPI equation recommended by the National Kidney Foundation (A Unifying Approach to GFR Estimation: Recommendations of the NKF-ASK Task Force on Reassessing the Inclusion of Race in Diagnosing Kidney Disease, JASN 2020). The CKD-EPI equation should not be used for patients with unstable renal function and has not been validated in children and those over 70. Current interpretive data was last reviewed 2021. Blood 08/19/2025 11:2 5 AM CDT 08/19/2025 11:25 AM CDT Terell Begum MD LAB BLOOD ORDERABLES Final Resu lt Performing Organization Address City/[facility] Co de Phone Number [facility] CORON[facility] [address] [place] [address] * aPTT (08/19/2025 11:25 AM CDT) aPTT 32 26 - 38 sec Comment: Interpretive Data Heparin therapeutic range: 66.0 - 100.0 seconds. Range based on correlation with therapeutic heparin activity range of 0.3 - 0.7 Units/mL. Current interpretive data was last revised on 2023. Blood 08/19/2025 11:2 5 AM CDT 08/19/2025 11:25 AM CDT us Terell Begum MD LAB BLOOD ORDERABLES Final Resu lt Performing Organization Address City/[facility]/ZIP Co de Phone Number ANITA [address] [place] [address] * (ABNORMAL) Protime-INR (08/19/2025 11:25 AM CDT) PT 17.1(H) 10.2 - 13.5 sec INR 1.53(H) 0.90 - 1.20 [facility] Comment: Interpretive data Oral anticoagulant therapeutic ranges: Venous thromboembolism prophylaxis or treatment: 2.0-3.0 CARDIOLOGY Standard range: 2.0-3.0 High-intensity range: 2.5-3.5 Refer to indication-specific guidelines for appropriate target ranges for prosthetic heart valve replacement. Current interpretive data was last revised on 2019. Blood 08/19/2025 11:2 5 AM CDT 08/19/2025 11:25 AM CDT us Terell Begum MD LAB BLOOD ORDERABLES Final Resu lt [facility] [address] Department [place] [address] * (ABNORMAL) Comprehensive metabolic panel (08/19/2025 11:25 AM CDT) Sodium 139 135 - 145 mmol/L Potassium, pl 4.0 3.3 - 4.9 mmol/L [facility] Chloride 105 97 - 110 mmol/L [facility] CO2 23 22 - 32 mmol/L [facility] Anion gap 11 2 - 15 mmol/L [facility] BUN 17 6 - 25 mg/dL [facility] Creatinine 0.69 0.60 - 1.10 mg/dL [facility] Glucose 107 70 - 199 mg/dL [facility] Comment: Interpretive Data Fasting glucose >/= 126 mg/dl is diagnostic for diabetes. Fasting is defined as no caloric intake for at least 8 hours. Fasting glucose between 100 mg/dl to 125 mg/dl is diagnostic of prediabetes. In a patient with classic symptoms of hyperglycemia or hyperglycemic crisis, a random glucose >/= 200 mg/dl is diagnostic for diabetes. In the absence of unequivocal hyperglycemia, results should be confirmed by repeat testing. The classification and Diagnosis of Diabetes Diabetes Care 202; 46: S19-S40. Current interpretive data was last revised 2022. Calcium 8.9 8.5 - 10.3 mg/dL [facility] Bilirubin, total 0.3 0.1 - 1.2 mg/dL [facility] Protein, pl 6.0(L) 6.5 - 8.5 g/dL [facility] Albumin 3.8 3.5 - 5.0 g/dL [facility] Alk phos 62 40 - 130 Units/L [facility] ALT 16 7 - 45 Units/L [facility] AST 23 10 - 45 Units/L [facility] Blood 08/19/2025 11:2 5 AM CDT 08/19/2025 11:25 AM CDT Terell Begum MD LAB BLOOD ORDERABLES Final Resu lt Performing Organization Address [facility] de Phone Number ANITA [id number] [place] [address] * Type and screen (08/19/2025 11:08 AM CDT) Nettie, indirect Negative ABO Rh A Positive [facility] Blood 08/19/2025 11:0 8 AM CDT 08/19/2025 11:33 AM CDT Narrative [facility] - 08/19/2025 12:21 PM CDT Has the patient had Daratumumab or Isatuximab in the past 6 months?->Unknown Terell Begum MD LAB BLOOD BANK TEST ORDERABLES Final Result Performing Organization Address [facility] Phone Number ANITA [address] [place] [address] * ECG 12 lead (08/19/2025 10:35 AM CDT) 08/19/2025 10:3 5 AM CDT Narrative [facility] - 08/19/2025 12:01 PM CDT Vent Rate: 65 bpm RR Interval: 912 msec TN Interval: 0 msec QRS Duration: 90 msec QT Interval: 436 msec QTC Interval: 448 msec P-R-T Ayer: 0 - 88 - 46 degrees IMPRESSION: ATRIAL FIBRILLATION WITH CONTROLLED VENTRICULAR RESPONSE NONSPECIFIC ST SEGMENT ABNORMALITY Electronically Signed By: Levy Jarvis MD, [facility] Terell Begum MD ECG ORDERABLES Final Result Performing Organization Address [facility] de Phone Number [facility] * eGFR (08/11/2025 4:36 AM CDT) eGFR 82 >=60 mL/min/1. 73 m2 Comment: Interpretive Data Reference Interval Normal >/= 90 mL/min/1.73m2 Mildly decreased* 60 - 89 mL/min/1.73m2 Mildly to moderately decreased 45 - 59 mL/min/1.73m2 Moderately to severely decreased 30 - 44 mL/min/1.73m2 Severely decreased 15 - 29 mL/min/1.73m2 Kidney Failure < 15 mL/min/1.73m2 *Relative to young adult level Estimated glomerular filtration rate is determined by the 2020 CKD-EPI equation recommended by the National Kidney Foundation (A Unifying Approach to GFR Estimation: Recommendations of the NKF-ASK Task Force on Reassessing the Inclusion of Race in Diagnosing Kidney Disease, JASN 2020). The CKD-EPI equation should not be used for patients with unstable renal function and has not been validated in children and those over 70. Current interpretive data was last reviewed 2021. Blood 08/11/2025 4:36 AM CDT 08/11/2025 5:10 AM CDT us Kaz Ying MD LAB BLOOD ORDERABLES Final Resu lt [facility] [address] Department [place] [address] * (ABNORMAL) CBC without differential (08/11/2025 4:36 AM CDT) Pathologist [facility] WBC 7.67 3.80 - 9.90 K/cumm Hgb 8.0(L) 11.9 - 15.5 g/dL [facility] Hct 24.9(L) 35.6 - 45.5 % [facility] Plt 222 150 - 400 K/cumm [facility] MPV 10.5 9.1 - 12.3 fL [facility] RBC 2.69(L) 3.90 - 5.20 M/cumm [facility] MCV 92.6 81.3 - 96.4 fL [facility] MCH 29.7 27.1 - 33.3 pg [facility] MCHC 32.1(L) 32.3 - 35.7 g/dL [facility] RDW CV 17.2(H) 11.1 - 14.9 % [facility] RDW SD 56.7(H) 35.7 - 48.1 fL [facility] NRBC abs 0.00 0.00 - 0.01 K/cumm [facility] Blood 08/11/2025 4:36 AM CDT 08/11/2025 5:08 AM CDT us Kaz Ying MD LAB BLOOD ORDERABLES Final Resu lt [facility] [address] Department [place] [address] * Renal function panel (08/11/2025 4:36 AM CDT) Sodium 136 135 - 145 mmol/L Potassium, pl 3.4 3.3 - 4.9 mmol/L [facility] Chloride 100 97 - 110 mmol/L [facility] CO2 27 22 - 32 mmol/L [facility] Anion gap 9 2 - 15 mmol/L [facility] BUN 20 6 - 25 mg/dL [facility] Creatinine 0.76 0.60 - 1.10 mg/dL [facility] Glucose 98 70 - 199 mg/dL [facility] Comment: Interpretive Data Fasting glucose >/= 126 mg/dl is diagnostic for diabetes. Fasting is defined as no caloric intake for at least 8 hours. Fasting glucose between 100 mg/dl to 125 mg/dl is diagnostic of prediabetes. In a patient with classic symptoms of hyperglycemia or hyperglycemic crisis, a random glucose >/= 200 mg/dl is diagnostic for diabetes. In the absence of unequivocal hyperglycemia, results should be confirmed by repeat testing. The classification and Diagnosis of Diabetes Diabetes Care 202; 46: S19-S40. Current interpretive data was last revised 2022. Calcium 8.8 8.5 - 10.3 mg/dL [facility] Phosphorus, pl 3.8 2.3 - 4.5 mg/dL [facility] Albumin 3.6 3.5 - 5.0 g/dL [facility] Blood 08/11/2025 4:36 AM CDT 08/11/2025 5:10 AM CDT us Kaz Ying MD LAB BLOOD ORDERABLES Final Resu lt [facility] [address] Department [place] [address] * EGD (08/10/2025 10:58 AM CDT) Anatomical Region Laterality Modality Other Narrative Procedure Note Sylvia Denney MD - 08/10/2025 10:58 AM CDT [facility] Endoscopy [facility] Patient Name: Karen Casarez Procedure Date: 08/10/2025 10:58 AM Date of : 1950 Admit Type: Inpatient Age: 75 Gender: Female Note Status: Finalized Attending MD: Sylvia Denney M.D., Procedure Date: 08/10/2025 Procedure: Upper GI endoscopy Indications: Melena Providers: Sylvia Denney M.D., DANIE Wu (Anesthesia Staff), Zuly Cordero RN, Estephania, Stonecutter Apprentice Hand Referring MD: Medicines: Monitored Anesthesia Care Complications: No immediate complications. Estimated Blood Loss: Estimated blood loss was minimal. Procedure: Pre-Anesthesia Assessment: - Prior to the procedure, a History and Physicalwas performed, and patient medications and allergieswere reviewed. The patient's tolerance of previous anesthesia was also reviewed. The risks andbenefits of the procedure and the sedation options and risks were discussed with the patient. All questions were answered, and informed consent was obtained. Prior Anticoagulants: The patient has taken Eliquis (apixaban), last dose was 1 day prior to procedure. ASA Grade Assessment: III - A patient with severe systemic disease. After reviewing the risks and benefits, the patient was deemed in satisfactory condition to undergo the procedure. - Prior to the procedure, a History and Physicalwas performed, and patient medications, allergies and sensitivities were reviewed. The patient'stolerance of previous anesthesia was reviewed. - The risks and benefits of the procedure and the sedation options and risks were discussed with the patient. All questions were answered and informed consent was obtained. After obtaining informed consent, the endoscope was passed under direct vision. Throughout theprocedure, the patient's blood pressure, pulse, and oxygen saturations were monitored continuously. The scopewas passed under direct vision. The was introducedthrough the mouth, and advanced to the second part of duodenum. The upper GI endoscopy was accomplished without difficulty. The patient tolerated the procedure well. Findings: The examined duodenum was normal. One non-bleeding cratered gastric ulcer with no stigmata of bleedingwas found at the pylorus. The lesion was 8 mm in largest dimension. Patchy inflammation characterized by congestion (edema), erosions, erythema and shallow ulcerations was found in the gastric antrum. Patchy mild inflammation characterized by erythema was found in the gastric body. The gastroesophageal flap valve was visualized endoscopically and classified as Hill Grade II (fold present, opens with respiration). A small hiatal hernia was present. The Z-line was regular. LA Grade D (one or more mucosal breaks involving at least 75% of esophageal circumference) sloughing esophagitis with no bleeding was found involving the distal and mid-esophagus. Impression: - Normal examined duodenum. - Non-bleeding clean based cratered gastric ulcerat the pylorus with no stigmata of bleeding. - Gastritis, characterized by congestion (edema), erosions, erythema and shallow ulcerations in the antrum. - Gastritis, characterized by erythema in thebody. - Gastroesophageal flap valve classified as HillGrade II (fold present, opens with respiration). - Small hiatal hernia. - Z-line regular. - LA Grade D sloughing esophagitis with nobleeding. - No specimens collected. Recommendation: - Return patient to [facility]. - Advance diet as tolerated. - Continue present medications. - Repeat upper endoscopy in about 2 months to check healing. Would recommend coordinating when plavixcan safely be held 5 days prior incase biopsies are indicated. - Send stool H pylori antigen - Avoid nonsteroidal anti-inflammatory drugs(NSAIDS) - examples of this category of medications to avoid include ibuprofen, advil, aleve, naproxen. Ok to continue aspirin 81 given cardiac history. - Take an acid suppression medication (proton pump inhibitor) such as pantoprazole 40 mg twice a day until follow-up endoscopy. - Anemia follow-up with PCP is recommended. Ifanemia fails to normalize, please refer back to GI. - Patient is at increased risk for bleeding given findings. Can restart anticoagulation (eliquis) and plavix with close monitoring as needed as per cardiology. - GI will see as needed. Please notify if patient needs to be seen. Procedure Code(s): --- Professional --- 42769, Esophagogastroduodenoscopy, flexible, transoral; diagnostic, including collection of specimen(s) by brushing or washing, when performed (separate procedure) Diagnosis Code(s): --- Professional --- K25.9, Gastric ulcer, unspecified as acute orchronic, without hemorrhage or perforation K29.70, Gastritis, unspecified, without bleeding K44.9, Diaphragmatic hernia without obstruction or gangrene K20.90, Esophagitis, unspecified without bleeding K92.1, Melena (includes Hematochezia) CPT copyright 2022 [employer] [employer]. All rights reserved. The codes documented in this report are preliminary and upon cnc maintenance mechanic reviewmay be revised to meet current compliance requirements. Dr. Sylvia Denney MD [facility] Sylvia Denney M.D. 08/10/2025 12:20:41 PM Number of Addenda: 0 Note Initiated On: 08/10/2025 10:58 AM us Sylvia Denney MD ENDOSCOPY PROCEDURES Edited Result - Final * eGFR (08/10/2025 4:10 AM CDT) eGFR 85 >=60 mL/min/1. 73 m2 Comment: Interpretive Data Reference Interval Normal >/= 90 mL/min/1.73m2 Mildly decreased* 60 - 89 mL/min/1.73m2 Mildly to moderately decreased 45 - 59 mL/min/1.73m2 Moderately to severely decreased 30 - 44 mL/min/1.73m2 Severely decreased 15 - 29 mL/min/1.73m2 Kidney Failure < 15 mL/min/1.73m2 *Relative to young adult level Estimated glomerular filtration rate is determined by the 2020 CKD-EPI equation recommended by the National Kidney Foundation (A Unifying Approach to GFR Estimation: Recommendations of the NKF-ASK Task Force on Reassessing the Inclusion of Race in Diagnosing Kidney Disease, JASN 2020). The CKD-EPI equation should not be used for patients with unstable renal function and has not been validated in children and those over 70. Current interpretive data was last reviewed 2021. Blood 08/10/2025 4:10 AM CDT 08/10/2025 4:20 AM CDT us Kaz Ying MD LAB BLOOD ORDERABLES Final Resu lt [facility] [address] Department [place] [address] * Iron profile w/ IBC (08/10/2025 4:10 AM CDT) Iron 69 35 - 145 mcg/dl TIBC 288 250 - 400 mcg/dL [facility] Transferrin saturation 24 20 - 50 % ANITA Blood 08/10/2025 4:10 AM CDT 08/10/2025 4:20 AM CDT us Erin Dean NP LAB BLOOD ORDERABLES Fin al Result Performing Organization Address City/[facility] Co de Phone Number [facility] CORONEL [address] Department [place] [address] * (ABNORMAL) Protime-INR (08/10/2025 4:10 AM CDT) PT 14.0(H) 10.2 - 13.5 sec INR 1.24(H) 0.90 - 1.20 [facility] Comment: Interpretive data Oral anticoagulant therapeutic ranges: Venous thromboembolism prophylaxis or treatment: 2.0-3.0 CARDIOLOGY Standard range: 2.0-3.0 High-intensity range: 2.5-3.5 Refer to indication-specific guidelines for appropriate target ranges for prosthetic heart valve replacement. Current interpretive data was last revised on 2019. Blood 08/10/2025 4:10 AM CDT 08/10/2025 4:20 AM CDT Sylvia Denney MD LAB BLOOD ORDERABLES Final Result Performing Organization Address [facility] Co de Phone Number ANITA CORONEL [address] [place] [address] * (ABNORMAL) CBC without differential (08/10/2025 4:10 AM CDT) WBC 6.80 3.80 - 9.90 K/cumm Hgb 8.3(L) 11.9 - 15.5 g/dL [facility] Hct 25.9(L) 35.6 - 45.5 % [facility] Plt 218 150 - 400 K/cumm [facility] MPV 10.3 9.1 - 12.3 fL [facility] RBC 2.80(L) 3.90 - 5.20 M/cumm [facility] MCV 92.5 81.3 - 96.4 fL [facility] MCH 29.6 27.1 - 33.3 pg [facility] MCHC 32.0(L) 32.3 - 35.7 g/dL [facility] RDW CV 17.1(H) 11.1 - 14.9 % [facility] RDW SD 57.4(H) 35.7 - 48.1 fL [facility] NRBC abs 0.00 0.00 - 0.01 K/cumm [facility] Blood 08/10/2025 4:10 AM CDT 08/10/2025 4:21 AM CDT Kaz Ying MD LAB BLOOD ORDERABLES Final Resu lt Performing Organization Address City/[facility]/ZIP Co de Phone Number [facility] [address] [employer] [place], [place] [id number] * Ferritin (08/10/2025 4:10 AM CDT) [facility] Ferritin 56 13 - 150 ng/mL Blood 08/10/2025 4:10 AM CDT 08/10/2025 4:20 AM CDT Erin Dean NP LAB BLOOD ORDERABLES Fin al Result Performing Organization Address [facility] Co de Phone Number [facility] [address] [employer] [place], [place] [id number] * Renal function panel (08/10/2025 4:10 AM CDT) Sodium 137 135 - 145 mmol/L Potassium, pl 3.8 3.3 - 4.9 mmol/L [facility] Chloride 102 97 - 110 mmol/L [facility] CO2 25 22 - 32 mmol/L [facility] Anion gap 10 2 - 15 mmol/L [facility] BUN 22 6 - 25 mg/dL [facility] Creatinine 0.74 0.60 - 1.10 mg/dL [facility] Glucose 103 70 - 199 mg/dL [facility] Comment: Interpretive Data Fasting glucose >/= 126 mg/dl is diagnostic for diabetes. Fasting is defined as no caloric intake for at least 8 hours. Fasting glucose between 100 mg/dl to 125 mg/dl is diagnostic of prediabetes. In a patient with classic symptoms of hyperglycemia or hyperglycemic crisis, a random glucose >/= 200 mg/dl is diagnostic for diabetes. In the absence of unequivocal hyperglycemia, results should be confirmed by repeat testing. The classification and Diagnosis of Diabetes Diabetes Care 202; 46: S19-S40. Current interpretive data was last revised 2022. Calcium 9.0 8.5 - 10.3 mg/dL [facility] Phosphorus, pl 3.8 2.3 - 4.5 mg/dL [facility] Albumin 3.8 3.5 - 5.0 g/dL [facility] Blood 08/10/2025 4:10 AM CDT 08/10/2025 4:20 AM CDT us Kaz Ying MD LAB BLOOD ORDERABLES Final Resu lt [facility] [address] Department [place] [address] * Lipid panel (08/08/2025 11:49 PM CDT) Cholesterol 122 30 - 199 mg/dL Comment: Interpretive Data Ages < or = 19 years Acceptable: <170 mg/dL Borderline high: 170-199 mg/dL High: >or= 200 mg/dL Ages > or = 20 years Desirable: <200 mg/dL Borderline high: 200-239 mg/dL High: >or= 240 mg/dL Literature References: 1. Expert Panel on Integrated Guidelines for Cardiovascular Health and Risk Reduction in Children and Adolescents. Pediatrics 2011;128:S213 2. NCEP Expert Panel. Circulation 2004;110:227 Current Interpretive Data was last revised on 2018. Triglycerides 114 <=149 mg/dL [facility] Comment: Interpretive Data Ages < or = 9 years Acceptable: <75 mg/dL Borderline high: 75-99 mg/dL High: >or= 100 mg/dL Ages 10 to 20 years Acceptable: <90 mg/dL Borderline high: 90-129 mg/dL High: >or= 130 mg/dL Ages > or = 20 years Desirable: <150 mg/dL Borderline high: 150-199 mg/dL High: 200-499 mg/dL Very high: >or= 499 mg/dL Literature References: 1. Expert Panel on Integrated Guidelines for Cardiovascular Health and Risk Reduction in Children and Adolescents. Pediatrics 2011;128:S213 2. NCEP Expert Panel. Circulation 2004;110:227 Current Interpretive Data was last revised on 2018. HDL 53 >=40 mg/dL [facility] Comment: Interpretive Data Ages < or = 19 years Acceptable: >45 mg/dL Borderline low: 40-45 mg/dL Low: <40 mg/dL Ages > or = 20 years Desirable: >or= 60 mg/dL Low: <40 mg/dL Literature References: 1. Expert Panel on Integrated Guidelines for Cardiovascular Health and Risk Reduction in Children and Adolescents. Pediatrics 2011;128:S213 2. NCEP Expert Panel. Circulation 2004;110:227 Current Interpretive Data was last revised on 2018. LDL, calculated 48 <=129 mg/dL [facility] Comment: Interpretive Data Ages < or = 19 years Acceptable: <110 mg/dL Borderline high: 110-129 mg/dL High: >or= 130 mg/dL Ages > or = 20 years Optimal: <100 mg/dL Near optimal: 100-129 mg/dL Borderline high: 130-159 mg/dL High: >160 mg/dL Calculated using the Ken LDL-C estimating equation. This equation was implemented on 2024. Prior to this date LDL-C was estimated using the Friedewald equation. Literature References: 1. Expert Panel on Integrated Guidelines for Cardiovascular Health and Risk Reduction in Children and Adolescents. Pediatrics 2011;128:S213 2. NCEP Expert Panel. Circulation 2004;110:227 3. Ken Saldaña et al. FRITZ Cardiol. 2019March 24;5(5):540-548. doi: 10.1001/jamacardio.2020.0013 Current Interpretive Data was last revised on 2024. Non-HDL Cholesterol 69 mg/dL [facility] Comment: Interpretive Data Ages < or = 19 years Acceptable: <120 mg/dL Borderline high: 120-144 mg/dL High: >145 mg/dL Ages > or = 20 years When triglycerides are >200 mg/dL, Non-HDL cholesterol is a secondary target of therapy with treatment goals that are 30 mg/dL greater than the LDL cholesterol target. Literature References: 1. Expert Panel on Integrated Guidelines for Cardiovascular Health and Risk Reduction in Children and Adolescents. Pediatrics 2011;128:S213 2. NCEP Expert Panel. Circulation 2004;110:227 Current Interpretive Data was last revised on 2018. Chol/HDL ratio 2 ANITA CORONEL Blood 08/08/2025 11:4 9 PM CDT 08/08/2025 11:58 PM CDT us Kaz Ying MD LAB BLOOD ORDERABLES Final Resu lt ANITA CORONEL [id number] Department [place] [address] from Last 3 Months or Most Recently Relevant to Health Maintenance Insurance T MEDICARE AET MEDICARE AETNA MEDICARE Advance Directives For more information, please contact: [phone] * Full Code (Latest Code Status on File) Date Activated Date Inactivated Comments 10/07/2025 9:08 AM 10/07/2025 2:59 PM * Full Code Date Activated Date Inactivated Comments 08/29/2025 11:57 AM 08/30/2025 6:10 PM * Full Code Date Activated Date Inactivated Comments 08/08/2025 8:40 PM 08/11/2025 10:25 PM * Full Code Date Activated Date Inactivated Comments 10/21/2023 9:44 AM 10/21/2023 4:53 PM * Full Code Date Activated Date Inactivated Comments 08/14/2022 2:09 PM 08/15/2022 6:18 PM Care Teams Survey Operations Director Relationship Specialty Start Date End Date Jessy Wild MD [address] [id number] PCP - General Internal Medicine 04/12/22 Christel Chang MD Consulting Physician Cardiology 02/13/22 Rufino Manley MD Surgeon Neurosurgery 02/13/22 [place] [address] [facility] [address] [place] [address] Consulting Physician Endocrinology Diabetes & Metabolism 02/13/22 Jayashree Wheeler MD [address] [place] [address] Consulting Physician Cardiology 08/30/25
--- OUTSIDE RECORDS SUMMARY | 2025-11-09 13:54 | XMS_ITS | Clinical Summary ---
Author Organization [facility] Address [address] [place] [address] Care Team Providers Care Mechanical Integrity Specialist Name Role Phone Larissa Wild MD Primary Care Provider Source Comments [facility],non-owned Affiliates and Associated Physician Practices is amultiple site organization consisting of ambulatory clinics and hospital sitesin [place], [place], [place] and [place]. This disclosure is being madepursuant to the Care Everywhere program and may not contain all information available regarding this patient. Last updated 18.[facility] Paradial Allergies No known active allergies Medications * Be aware that medications may not be up to date on this document. Alwaysverify current medications with the patient. sertraline (ZOLOFT) 25 MG tablet Take 25 mg by mouth once daily Active aspirin (ASPIRIN) 325 MG tablet Take 1 tablet by mouth once daily 12/10/2018 Active HYDROcodone-acet aminophen (NORCO) 5-325 MG tablet Take 1 tablet by mouth every 4 hours as needed 15 tablet 12/09/2018 Active Active Problems Problem Noted Date Diagnosed Date Hemorrhagic shock 11/30/2018 Retroperitoneal bleed 11/30/2018 Chest pain 11/30/2018 PAD (peripheral artery disease) 11/30/2018 Social History Tobacco Use Types Packs/Day Years Used Date Smoking Tobacco: Former Cigarettes Smokeless Tobacco: Never Tobacco Cessation:Counseling Given: No Alcohol Use Standard Drinks/Week Comments Not Asked 2 (1 standard drink = 0.6 oz pur e alcohol) Comments Unknown Sex and Gender Information Value Date Recorded Sex Assigned at Not on file Legal Sex Female 12:39 PM GRIPPER ATTACHER Gender Identity Not on file Sexual Orientation Not on file Last Filed Vital Signs Vital Sign Reading Time Taken Comments Blood Pressure 146/59 12/09/2018 8:06 AM GRIPPER ATTACHER Pulse 65 12/09/2018 8:06 AM GRIPPER ATTACHER Temperature 36.9 C (98.5 F) 12/09/2018 8:06 AM GRIPPER ATTACHER Respiratory Rate 19 12/09/2018 8:06 AM GRIPPER ATTACHER Oxygen Saturation 95% 12/09/2018 8:06 AM GRIPPER ATTACHER Inhaled Oxygen Concentration - - Weight 78.3 kg (172 lb 9.6 oz) 12/09/2018 6:02 A M GRIPPER ATTACHER Height 154.9 cm (5' 1) 11/30/2018 4:07 PM GRIPPER ATTACHER Body Mass Index 32.61 11/30/2018 4:07 PM GRIPPER ATTACHER Plan of Treatment Health Maintenance Due Date Last Done Comments BONE DENSITY TESTING 1950 COLOGUARD (AGES 45-75) - COL ON CA SCREENING 1950 COLON MONITORING 1950 COLONOSCOPY - COLON CA SCREENING 1950 CT COLONOGRAPHY - COLON CA SCREENING 1950 Colorectal Cancer Screening 1950 FIT - COLON CA SCREENING 1950 FLEX SIG - COLON CA SCREENING 1950 MAMMOGRAM 1950 HEPATITIS C SCREENING 01/28/1969 DTAP/TDAP/TD VACCINES (1 - Tdap) 1970 PNEUMOCOCCAL VACCINE 50+ (1 of 1 - PCV) 2001 Respiratory Syncytial Virus (RSV) Vaccine Pt: or over 60 yrs (1 - Risk 50-74 years 1-dose series) 2001 ZOSTER VACCINE (1 of 2) 2001 DEPRESSION SCREENING 11/24/2024 COVID-19 VACCINE (1 - 2024-2 6 season) 2025 INFLUENZA VACCINE (#1) 2025 HEPATITIS B VACCINE Aged Out No longe r eligible based on patient's age to complete this topic HIB VACCINE Aged Out No longer eligi ble based on patient's age to complete this topic HPV VACCINE Aged Out No longer eligi ble based on patient's age to complete this topic MENINGOCOCCAL (Group B) VACC INE SHARED DECISION-MAKING Aged Out No longer eligibl e based on patient's age to complete this topic MENINGOCOCCAL GROUPS A/C/Y/W VACCINE Aged Out No longer eligible b ased on patient's age to complete this topic Insurance ANTHEM Advance Directives * Full Code (Latest Code Status on File) Date Activated Date Inactivated Comments 11/30/2018 4:32 PM 12/09/2018 1:12 PM Care Teams Mechanical Integrity Specialist Relationship Specialty Start Date End Date Larissa Wild MD [address] [id number] PCP - General Internal Medicine 11/30/18
--- OUTSIDE RECORDS SUMMARY | 2025-11-09 13:54 | XMS_ITS | Encounter Summary ---
Author Organization [facility] Address [address] [place] [address] Care Team Providers Care Endoscopy Tech Name Role Phone Christel Chang MD Unavailable [phone] Rufino Manley MD Unavailable [phone] Salvatore Brito MD Unavailable Jessy Wild MD Primary Care Provide r Jayashree Wheeler MD Unavailable [phone] Encounter Details Date Type Department Care Team (Late st Contact Info) Description 08/10/2025 Cardiology Conference [facility] Non-invasive Cardiac Diagnostic Testing [address] [place] [address] Shaq Cyr, RN Social History Tobacco Use Types Packs/Day Years Used Date Smoking Tobacco: Former Cigarettes Q uit: 1997 Smokeless Tobacco: Never AUDIT-C Answer Date Recorded Q1: How often do you have a drink containing alc ohol? Monthly or less 10/21/2023 Q2: How many drinks containi ng alcohol do you have on a typical day when you are drinking? 1 or 2 10/21/2023 Q3: How often do you have si x or more drinks on one occasion? Never 10/21/2023 PHQ-2 Answer Date Recorded PHQ-2 Total Score (If total score is 3 or more points, staff should administer the PHQ-9) 0 07/25/2022 Social Connection and Isolation Panel Answer Date Recorded Frequency of Communication with Friends and Fami ly Not on file 08/10/2025 Frequency of Social Gatherings with Friends and Family Not on file 08/10/2025 Attends Sabianist Services Not on file 08/10 Active Member of Clubs or Organizations Not on f ile 08/10/2025 Attends Club or Organization Meetings Not on karina e 08/10/2025 Are you , , di vorced, , never , or living with a partner? 08/10/2025 Overall Financial Resource Strain (CARDIA) Answe r [...] any time in the past 12 m [facility], were you homeless or living in a intermediate (including now)? No 08/10/2025 [facility] Utilities Answer Date Recorded In the past 12 months has e electric, gas, oil, or water company threatened to shut off services in your home? No 08/10/2025 Personal Safety Answer Date Recorded Have you ever been in or are you currently in a harmful physical or emotional relationship or is someone making you feel afraid or unsafe? Denies 08/08/2025 Education Answer Date Recorded What is the highest level of school you have completed or the highest degree you have received? High school graduate 08/10/2025 Comments No Sex and Gender Information Value Date Recorded Sex Assigned at Not on file Legal Sex Female 4:39 PM PRORATION CLERK Gender Identity Not on file Sexual Orientation Not on file documented as of this encounter Functional Status * Difference in Last Two Amaury Scores Answer Date of Assessment Author 1 08/11/2025 8:55 AM CDT Kay Avila Fall Risk Question Answer Date of Assessment Author History of Falling 0 08/11/2025 8:55 AM CDKay Mcdaniel Secondary Diagnosis 15 08/11/2025 8:55 AM CD Kay Mcdaniel Ambulatory Aids 0 08/11/2025 8:55 AM CDT Kay Wallis Intravenous Therapy/Heparin/Saline Lock 20 08/11/2025 8:55 AM CDT aKy Avila Gait/Transferring 10 08/11/2025 8:55 AM CDT Kay Avila Mental Status 0 08/11/2025 8:55 AM CDT Contreras insKay Fall Risk Score (Score >= 45 places fall precaution order) 45 08/11/2025 8:55 AM CDT Kay Avila Ma Prior Fall Event (Autopopulated from EMR) None found 08/11/2025 8:55 AM CDT Lizabeth Avila * Amaury Scale Question Answer Date of Assessment Author Sensory Perceptions 4 08/11/2025 8:55 AM Kay Mcdowell Moisture 4 08/11/2025 8:55 AM CDT Kay Jensen Activity 3 08/11/2025 8:55 AM CDT Kay Jensen Mobility 3 08/11/2025 8:55 AM CDT Kay Jensen Nutrition 2 08/11/2025 8:55 AM CDT Kay Jensen Friction and Shear 3 08/11/2025 8:55 AM CDKay Mcdaniel Amaury Scale Score 19 08/11/2025 8:55 AM CDT Kay Avila * Question Answer Date of Assessment Author BP Location Left arm 08/11/2025 4:17 AM CDT Tash Rudolph BP Method Automatic 08/11/2025 4:17 AM CDT Tash Rudolph MAP (mmHg) 67 08/11/2025 8:20 AM CDT Isela Lockhart ams * Fall Risk Interventions Question Answer Date of Assessment Author All Low Fall Interventions Applied Yes 08/11/2025 8:55 AM CDT Kay Avila All Moderate Fall Interventions Applied Yes 08/11/2025 8:55 AM CDT Kay Avila All High Fall Risk Interventions Applied Yes 08/11/2025 8:55 AM CDT Kay Avila Additional Interventions Applied Bed/chair alarm 08/11/2025 8:55 AM CDT Kay Avlia * Question Answer Date of Assessment Author PT Functional Mobility SBA for all mobil ity and gait 250' with WW 08/11/2025 12:00 PM CDT Marianela Mejia, PT * B.M.A.T. - Bedside Mobility Assessment Tool for Nurses Question Answer Date of Assessment Author Is patient able to participate in the BMAT? Yes 08/11/2025 8:55 AM CDT Kay Avila BMAT Level Level 3 - Yellow 08/11/2025 8:55 AM CDT W Kay cope Level 3 Equipment Use assistive device such as cane/walker 08/11/2025 8:55 AM CDT Kay Avila * Question Answer Date of Assessment Author 2 Nurse Skin Assessment Jose Juan/ Magaly 08/10/2025 7:00 P M CDT Jose Juan Ndiaye, KIERRA * Pressure Injury Prevention Question Answer Date of Assessment Author Pressure Ulcer Prevention Interventions Keep skin clean and dry (Sensory Perception/Moisture ) 08/11/2025 8:55 AM CDT Kay Avila * Integumentary Question Answer Date of Assessment Author Skin Color Appropriate for ethnicity 08/11/2025 8:55 AM CDT Kay Avila Skin Condition/Temp Warm;Dry 08/11/2025 8 :55 AM CDT Kay Avila Skin Integrity Bruising 08/10/2025 8:40 PM CDT Magaly Segura RN Skin Turgor Non-tenting 08/11/2025 8:55 AM CDT Kay Avila Integumentary Additional Assessments Yes-Amaury 08/11/2025 8:55 AM CDT Kay Avila Integumentary (WDL) X 08/11/2025 8 :55 AM CDT Kay Avila Skin Location left groin 08/10/2025 8:40 PM CDT Magaly Segura RN * Question Answer Date of Assessment Author Diet Supplement Name/Percent Consumed % 100% Ensure 08/11/2025 11:00 AM CDT Consuelo Wagner * Question Answer Date of Assessment Author BP Location Left arm 08/11/2025 4:17 AM CDT Tash Rudolph BP Method Automatic 08/11/2025 4:17 AM CDT Tash Rudolph * Percent Meal Eaten (%) Answer Date of Assessment Author NPO 08/10/2025 8:31 AM CDT Marquise Braun * Fall Risk Interventions Question Answer Date of Assessment Author All Low Fall Interventions Applied Yes 08/11/2025 8:55 AM CDT Kay Avila All Moderate Fall Interventions Applied Yes 08/11/2025 8:55 AM CDT Kay Avila All High Fall Risk Interventions Applied Yes 08/11/2025 8:55 AM CDT Kay Avila Additional Interventions Applied Bed/chair alarm 08/11/2025 8:55 AM CDT Kay Avila * Hygiene Question Answer Date of Assessment Author Hygiene Level of Assistance Moderate assist 08/11/2025 12:00 PM CDT Consuelo Wagner Reason not bathed/showered Patient/family refused bath/shower 08/10/2025 5:00 PM CDT Marquise Velasco Bath Bathed/showered with chlorhexidine (CHG) 08/10/2025 8:23 PM CDT Fatemeh Acevedo documented as of this encounter Mental Status * Question Answer Entry Date Author Level of Consciousness Alert;Awake 8:55 AM CDT Kay Avila Orientation Oriented X4 (person, place, time, situation) 08/11/2025 8:55 AM CDT Kay Avila Neuro (WDL) X 08/11/2025 8:55 AM CDT Kay Avila Other Neuro Symptoms Fatigue 08/10/2025 8:40 PM CDT Magaly Segura RN documented in this encounter Plan of Treatment Upcoming Encounters Date Type Department Care Team (Latest Contact Info) Description 12/08/2025 1:30 PM PRORATION CLERK Hospital Encounter [facility] [address] [place] [id number] Jayashree Wheeler MD [address] [place] [address] 12/08/2025 1:30 PM PRORATION CLERK - 12/08/2025 2:00 PM PRORATION CLERK Surgery [facility] [address] [place] [address] Jayashree Wheeler MD [address] [place] [address] TRANSESOPHAGEAL ECHOCARDIOGRAM 12/16/2025 10:40 AM PRORATION CLERK Hospital Encounter [facility] Electrophysiology [facility] [address] [place] [address] [place] [address] [place], [place] [id number] Stenosis of left carotid artery 12/16/2025 10:40 AM PRORATION CLERK - 12/16/2025 12:26 PM PRORATION CLERK Surgery [facility] Elect[facility] [address] [place] [id number] [place] [address] [place] [address] carotid angiogram [[id number] (CPT )] Scheduled Procedures Name Priority Associated Diagnoses Date/Ti me TRANSESOPHAGEAL ECHOCARDIOGRAM History of left atrial appendage closure 12/08/2025 1:30 PM PRORATION CLERK documented as of this encounter Visit Diagnoses Not on filedocumented in this encounter Care Teams Endoscopy Tech Relationship Specialty Start Date End Date Jessy Wild MD [address] [facility] [address] [place] [address] PCP - General Internal Medicine 04/12/22 Christel Chang MD Consulting Physician Cardiology 02/13/22 Rufino Manley MD Surgeon Neurosurgery 02/13/22 [place] [address] [address] Consulting Physician Endocrinology Diabetes & Metabolism 02/13/22 Jayashree Wheeler MD [address] [place] [address] Consulting Physician Cardiology 08/30/25 documented as of this encounter
[2025-11-09 14:06] LABS: Alanine Aminotransferase 12 U/L (6-35); Albumin Level 4.2 g/dL (3.5-5.1); Alkaline Phosphatase 81 U/L (38-126); Anion Gap 7 mmol/L (4-12); Aspartate Amino Transferase 22 U/L (14-36); Bilirubin,Total 0.4 mg/dL (0.2-1.3); Blood Urea Nitrogen 17 mg/dL (7-17); Calcium 9.0 mg/dL (8.4-10.2); Carbon Dioxide 23 mmol/L (22-30); Chloride 108 mmol/L (98-107); Estimated Glomerular Filt Rate > 60; Glucose 96 mg/dL (65-110); Potassium 4.1 mmol/L (3.4-5.0); Sodium 138 mmol/L (137-145); Total Protein 7.0 g/dL (6.3-8.2)
[2025-11-09 14:13] LABS: Anisocytosis 1+; Burr Cells Occasional; Hypochromasia 1+; Ovalocytes 1+; Schistocytes None Seen
--- NOTE | 2025-11-09 14:21 | ED.RECABL ---
HPI - Recheck/Abnormal Lab/Rx General Chief Complaint: Recheck/Abnormal Lab/Rx Stated Complaint: LOW HGB Time Seen by Provider: 11/09/25 13:19 Source: patient Mode of arrival: ambulatory Limitations: no limitations History of Present Illness HPI narrative: This is a 75-year-old female with history of iron deficiency anemia, hypertension, hyperlipidemia, CAD, AFib on Eliquis who presents to the ED for abnormal labs. Patient states that she had a normal checkup with her PCP today and was found have a hemoglobin less than 7 so she was sent here for further evaluation. Patient states that she has been feeling will be very weak and several days. Denies blood in stools, chest pain, shortness of breath this time. Related Data Home Medications ?Medication ?Instructions ?Recorded ?Confirmed ?Last Taken ?Type apixaban 5 mg tablet (Eliquis) 5 mg PO Q12H 02/03/22 09/24/24 01/07/24 History ascorbic acid (vitamin C) 500 mg 500 mg PO DAILY 02/03/22 09/24/24 01/07/24 History tablet esomeprazole magnesium 20 mg 40 mg PO DAILY PRN Indigestion 02/03/22 09/24/24 02/01/22 History capsule,delayed release (Nexium) ferrous sulfate 325 mg (65 mg 325 mg PO DAILY 02/03/22 09/24/24 01/07/24 History iron) tablet (Iron (ferrous sulfate)) folic acid 800 mcg tablet 0.8 mg PO HS 02/03/22 09/24/24 01/07/24 History sertraline 25 mg tablet 25 mg PO DAILY 02/03/22 09/24/24 01/07/24 History atorvastatin 40 mg tablet 40 mg PO HS 01/08/24 09/24/24 01/07/24 History clopidogrel 75 mg tablet (Plavix) 75 mg PO DAILY 01/08/24 09/24/24 Unknown History ergocalciferol (vitamin D2) 1,250 50,000 unit PO WEEKLY 01/08/24 09/24/24 01/05/24 History mcg (50,000 unit) capsule furosemide 20 mg tablet (Lasix) 20 mg PO DAILY 01/08/24 09/24/24 01/07/24 History levothyroxine 50 mcg tablet 50 mcg PO 2300 01/08/24 09/24/2424 23:00 History lorazepam 0.5 mg tablet 0.5 mg PO BID PRN Anxiety 01/08/24 09/24/24 01/06/24 History magnesium 250 mg tablet 250 mg PO DAILY 01/08/24 09/24/24 01/07/24 History nitroglycerin 0.4 mg sublingual 0.4 mg sublingual Q5-15M PRN Chest 01/08/24 09/24/24 01/07/24 History tablet Pain nitroglycerin 0.4 mg/hr 1 patch transdermal DAILY 01/08/24 09/24/24 01/07/24 13:00 History transdermal 24 hour patch polyethylene glycol 3350 17 17 g PO DAILY PRN Constipation 01/08/24 09/24/24 Unknown History gram/dose oral powder (Miralax) sacubitril 24 mg-valsartan 26 mg 1 tablet PO Q12H 01/08/24 09/24/24 01/07/24 History tablet (Entresto) Allergies Allergy/AdvReac Type Severity Reaction Status Date / Time codeine AdvReac Nausea and Verified 04/07/25 13:26 Vomiting Review of Systems Review of Systems: Gen.: Denies fevers or chills Eyes: Denies eye pain or visual change ENT: Denies congestion Respiratory: Denies shortness of breath or cough CV: Denies chest pain or palpitations GI: Denies abdominal pain nausea, emesis or diarrhea denies burning, urgency, frequency or hematuria Musculoskeletal: Denies back pain or muscle pain Neuro: As per HPI Skin: Denies rash Except as documented, all other systems reviewed and negative [facility] Past Medical History Medical History Atrial fibrillation B12 deficiency CAD (coronary artery disease) CABG x2. Stents placed 2021. 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 Vertebral artery stents. Surgical History Surgical History Breast lump in female s/p lumpectomy; noncancerous H/O section x2 S/P MARYELLEN-BSO Noncancerous. S/P triple vessel bypass CABG in 1998 and redo 1999 Family History Family History Father CAD (coronary artery disease) Mother CAD (coronary artery disease) Acute myocardial infarction S/P CABG (coronary artery bypass graft) Sibling CAD (coronary artery disease) Acute myocardial infarction Sibling CAD (coronary artery disease) Cerebrovascular accident Sibling CAD (coronary artery disease) Diabetes mellitus Social History Social History Social History: Tobacco use 1ppd x 22 yrs but quite in 1998. Rare alcohol use. No drug use. She lives at home with her and daughter. If dogs. She is a full code. She nominates her to be the individual would make medical decisions for her if she is unable. Smoking packs per day: 1 Smoking cigarettes per day: 20.0 Years smoked: 15 Smoking pack-years: 15.00 Smoking status: Former smoker Tobacco type: cigarettes Alcohol intake: never Drinks per week: 1 Substance use: never Substance use type: does not use Lack of Transportation: No Lack of Food: Never True Current Housing: I Have Housing Concerned About Future Housing: No Difficulty Paying Gas/Electric Bills: No Difficulty Paying for Meds: No Currently Unemployed: No Education: High School Diploma/GED Difficulty w/ Childcare or Family Care: No Spiritual care concerns: No Exam Narrative: APPEARANCE: No acute distress, nontoxic, resting in bed EYES: EOMI, mild conjunctival pallor HEENT: Normocephalic, atraumatic, mild mucosal pallor RESPIRATORY: No respiratory distress Clear to auscultation bilaterally with no rhonchi wheezing or rales. CARDIOVASCULAR: Irregularly irregular rhythm without murmurs rubs or gallops. ABDOMINAL: Soft, nontender, nondistended, no rebound or guarding MUSCULOSKELETAl: Moves all extremities. No clubbing, cyanosis or edema. NEURO: Awake and alert. Following commands, speech normal, no focal deficits SKIN:: Warm, dry. No rashes lesions or abrasions PSYCHIATRIC: Normal affect/mood, Course Vital Signs Vital signs: Vital Signs Temperature 97.4 F L 11/09/25 11:49 Pulse Rate 74 11/09/25 11:49 Respiratory Rate 18 11/09/25 11:49 Blood Pressure 150/51 H 11/09/25 11:49 Pulse Oximetry 100 11/09/25 11:49 Oxygen Delivery Room Air 11/09/25 11:49 Temperature 98.1 F 11/09/25 17:32 Pulse Rate 64 11/09/25 17:32 Respiratory Rate 18 11/09/25 17:32 Blood Pressure 170/66 H 11/09/25 17:32 Pulse Oximetry 97 11/09/25 17:32 Oxygen Delivery Room Air 11/09/25 11:49 MDM MDM Narrative Medical decision making narrative: 75-year-old female Presenting for concerns for low hemoglobin. On initial evaluation patient was in no acute distress afebrile, hemodynamic stable. Differentials include but are not limited to: Anemia, GI bleed, electrolyte abnormality, viral syndrome Notable exam findings: Mild conjunctival pallor and mucosal pallor, heart irregularly irregular I personally reviewed the patient's lab result. Notable lab findings: Hemoglobin 7.2, CMP without significant abnormalities. I personally reviewed the patient's EKGs: Significant artifact, AFib rate of 61, normal axis, no acute ST or T-wave changes On further discussion the patient, she was recently admitted at [facility] for anemia and was found have a bleeding gastric ulcer. I reviewed the records on patient's phone and she was found to have a chronic ulcer. She received at least 1 unit PRBCs there and was discharged home with a hemoglobin of 8.8. I discussed the case with Dr. Montez, hematology, does recommend giving her 1 unit PRBC and will follow-up with her outpatient. Patient was given 1 unit and she tolerated this well. Patient was deemed appropriate for discharge at this time. Given strict return precautions. Differential Diagnosis Differential Diagnosis: Anemia, GI bleed, electrolyte abnormality, viral syndrome Lab Data 11/09/25 16:40 11/09/25 13:43 Labs: Lab Results 11/09/25 11/09/25 11/09/25 Range/Units 13:42 13:43 16:40 WBC 6.8 (4.5-10.0) K/mm3 RBC 3.09 L (4.2-5.4) M/mm3 Hgb 7.2 L 8.7 L (12.0-15.0) g/dL Hct 25.6 L 29.0 L (37.0-47.0) % MCV 82.8 (80-100) fl MCH 23.3 L (26-34) pg MCHC 28.1 L (32-36) g/dl RDW 17.2 H (11.5-14.5) % Plt Count 326 (150-375) k/mm3 MPV 9.9 (7.4-10.4) fl Immature Gran % (Auto) 0.4 (0-0.5) % Neut % (Auto) 69.7 (45.5-73.1) % Lymph % (Auto) 19.1 (18.3-44.2) % Ponce % (Auto) 6.5 (2.6-8.5) % Eos % (Auto) 3.1 (0-4.4) % Baso % (Auto) 1.2 (0.2-1.2) % Lymph # (Auto) 1.29 (0.9-3.2) K/mm3 Ponce # (Auto) 0.4 (0.1-0.6) K/mm3 Eos # (Auto) 0.2 (0-0.3) K/mm3 Baso # (Auto) 0.1 (0.0-0.1) K/mm3 Abs Immat Gran (auto) 0.03 (0.00-0.031) K/mm3 Absolute Neuts (auto) 4.7 (1.3-6.7) K/mm3 Absolute Nucleated RBC 0.000 (0.0-0.012) K/mm3 Band Neutrophils % Not Reportable Nucleated RBC % 0.0 (0.0-0.2) % Platelet Estimate Adequate (Adequate) Hypochromasia 1+ Anisocytosis 1+ Ovalocytes 1+ [place] Cells Occasional Schistocytes None seen Sodium 138 (137-145) mmol/L Potassium 4.1 (3.4-5.0) mmol/L Chloride 108 H (98-107) mmol/L Carbon Dioxide 23 (22-30) mmol/L Anion Gap 7 (4-12) mmol/L BUN 17 (7-17) mg/dL Creatinine 0.50 L (0.7-1.0) mg/dL Estim Creat Clear Calc Not Reportable Estimated GFR > 60 (59 - ) Glucose 96 (65-110) mg/dL Calcium 9.0 (8.4-10.2) mg/dL Iron 22 L (37-170) ug/dL TIBC 420 (261-462) ug/dL % Saturation 5 L (20-50) % Ferritin 8.60 L (11.1-264) ng/mL Total Bilirubin 0.4 (0.2-1.3) mg/dL AST 22 (14-36) U/L ALT 12 (6-35) U/L Alkaline Phosphatase 81 (38-126) U/L Total Protein 7.0 (6.3-8.2) g/dL Albumin 4.2 (3.5-5.1) g/dL Blood Type A Positive Antibody Screen Negative Crossmatch See Detail Discharge Plan Discharge Clinical Impression: Anemia Qualifiers: Anemia type: unspecified type Qualified Code(s): D64.9 - Anemia, unspecified Patient Disposition: Home Condition: Stable Instructions: Antibiotic Form, Anemia (ED) Additional Instructions: Call Dr. Montez's office tomorrow to discuss an earlier follow-up appointment. Return to the ED for any new or worsening symptoms. Patient Language: Malagasy Prescriptions: No Action atorvastatin 40 mg Tablet 40 mg PO HS Entresto 24-26 mg Tablet 1 tablet PO Q12H clopidogrel [Plavix] 75 mg Tablet 75 mg PO DAILY furosemide [Lasix] 20 mg Tablet 20 mg PO DAILY lorazepam 0.5 mg tablet 0.5 mg PO BID PRN (Reason: Anxiety) nitroglycerin 0.4 mg/hr patch 24 hour 1 patch transdermal DAILY levothyroxine 50 mcg tablet 50 mcg PO 2300 Patient Comments: Pt takes at 2300 per MD order due to becoming sick when taking it in the early AM ergocalciferol (vitamin D2) 1,250 mcg (50,000 unit) capsule 50,000 unit PO WEEKLY Rx Instructions: Pt takes on Mondays polyethylene glycol 3350 [Miralax] 17 gram/dose powder 17 g PO DAILY PRN (Reason: Constipation) nitroglycerin 0.4 mg Tablet, Sublingual 0.4 mg SUBLINGUAL Q5-15M PRN (Reason: Chest Pain) Rx Instructions: do not exceed 3 doses per episode magnesium 250 mg Tablet 250 mg PO DAILY carvedilol [Coreg] 12.5 mg Tablet 12.5 mg PO Q12HR Qty: 60 1RF amlodipine [Norvasc] 5 mg Tablet 5 mg PO QAM Qty: 30 1RF Patient Comments: .... amoxicillin-pot clavulanate 875-125 mg tablet 1 tablet PO Q12H Qty: 8 0RF Patient Comments: . pantoprazole [Protonix] 40 mg tablet,delayed release (DR/EC) 40 mg PO QAM Qty: 30 0RF sertraline 25 mg tablet 25 mg PO DAILY Eliquis 5 mg tablet 5 mg PO Q12H esomeprazole magnesium [Nexium] 20 mg Capsule,Delayed Release(Dr/Ec) 40 mg PO DAILY PRN (Reason: Indigestion) ferrous sulfate [Iron (ferrous sulfate)] 325 mg (65 mg iron) Tablet 325 mg PO DAILY folic acid 800 mcg Tablet 0.8 mg PO HS ascorbic acid (vitamin C) 500 mg Tablet 500 mg PO DAILY Follow-up/Referrals: Samuel Montez MD [Physician, Hematology] [facility],MD Larissa [Primary Care Provider, Unknown]
[2025-11-09 15:27] LABS: Iron 22 ug/dL (37-170)
--- NOTE | 2025-11-09 15:27 | PC.NURSE ---
consent for blood products signed and placed in paper chart
[2025-11-09 15:36] LABS: Percent Iron Saturation 5 % (20-50)
[2025-11-09 16:03] LABS: Ferritin 8.60 ng/mL (11.1-264)
[2025-11-09 16:45] LABS: Hematocrit 29.0 % (37.0-47.0); Hemoglobin 8.7 g/dL (12.0-15.0)
--- OUTSIDE RECORDS SUMMARY | 2025-11-09 17:09 | XMS_ITS | Clinical Summary ---
Author Organization [facility] Address [address] [place] [address] Care Team Providers Care Trigonometry Tutor Name Role Phone Larissa Wild MD Primary Care Provider Source Comments [facility],non-owned Affiliates and Associated Physician Practices is amultiple site organization consisting of ambulatory clinics and hospital sitesin [place], [place], [place] and [place]. This disclosure is being madepursuant to the Care Everywhere program and may not contain all information available regarding this patient. Last updated 18.[facility] [employer] Allergies No known active allergies Medications * [...] on file Legal Sex Female 12:39 PM BUSINESS APPLICATIONS DEVELOPER Gender Identity Not on file Sexual Orientation Not on file Last Filed Vital Signs Vital Sign Reading Time Taken Comments Blood Pressure 146/59 12/09/2018 8:06 AM BUSINESS APPLICATIONS DEVELOPER Pulse 65 12/09/2018 8:06 AM BUSINESS APPLICATIONS DEVELOPER Temperature 36.9 C (98.5 F) 12/09/2018 8:06 AM BUSINESS APPLICATIONS DEVELOPER Respiratory Rate 19 12/09/2018 8:06 AM BUSINESS APPLICATIONS DEVELOPER Oxygen Saturation 95% 12/09/2018 8:06 AM BUSINESS APPLICATIONS DEVELOPER Inhaled Oxygen Concentration - - Weight 78.3 kg (172 lb 9.6 oz) 12/09/2018 6:02 A M BUSINESS APPLICATIONS DEVELOPER Height 154.9 cm (5' 1) 11/30/2018 4:07 PM BUSINESS APPLICATIONS DEVELOPER Body Mass Index 32.61 11/30/2018 4:07 PM BUSINESS APPLICATIONS DEVELOPER Plan of Treatment Health Maintenance Due Date [...] age to complete this topic Insurance [facility] Address: [facility] [id number] [place] [id number] Advance Directives * Full Code (Latest Code Status on File) Date Activated Date Inactivated Comments 11/30/2018 4:32 PM 12/09/2018 1:12 PM Care Teams Trigonometry Tutor Relationship Specialty Start Date End Date Larissa Wild MD [address] [address] PCP - General Internal Medicine 11/30/18
--- OUTSIDE RECORDS SUMMARY | 2025-11-09 17:09 | XMS_ITS | Encounter Summary ---
Author Organization [facility] Address [address] [place] [address] Care Team Providers Care Sales Representative Livestock Name Role Phone Christel Chang MD Unavailable [phone] Rufino Manley MD Unavailable [phone] Salvatore Brito MD Unavailable Jessy Wild MD Primary Care Provide r Jayashree Wheeler MD Unavailable [phone] Encounter Details Date Type Department Care Team (Late st Contact Info) Description 08/10/2025 Cardiology Conference [facility] Non-invasive Cardiac Diagnostic Testing [address] [place] [address] Shaq Cyr, RN Social History Tobacco Use [...] and Family Not on file 08/10/2025 Attends [employer] Not on file 08/10 Active Member [...] any time in the past 12 m [facility], were you homeless or living in a longterm (including now)? No 08/10/2025 [facility] Utilities Answer Date Recorded In the past [...] on file Legal Sex Female 4:39 PM PROMOTIONS REPRESENTATIVE Gender Identity Not on file Sexual Orientation [...] Therapy/Heparin/Saline Lock 20 08/11/2025 8:55 AM CDT Kay Avila Gait/Transferring 10 08/11/2025 8:55 AM CDT Kay Avila Mental Status 0 08/11/2025 8:55 AM CDT Contreras insKay Fall Risk Score (Score >= 45 places fall precaution order) 45 08/11/2025 8:55 AM CDT Kay Avila Ma Prior Fall Event (Autopopulated from EMR) None found 08/11/2025 8:55 AM CDT Carlito Avila ra * Amaury Scale Question Answer Date of Assessment Author Sensory Perceptions 4 08/11/2025 8:55 AM Kay Mcdowell Moisture 4 08/11/2025 8:55 AM CDKay Martínez Activity 3 08/11/2025 8:55 AM CDT Kay [...] the BMAT? Yes 08/11/2025 8:55 AM CDT Carlito Avila ra BMAT Level Level 3 - Yellow 08/11/2025 8:55 AM CDT Kay Crowell Level 3 Equipment Use assistive device such [...] Condition/Temp Warm;Dry 08/11/2025 8 :55 AM CDT aKy Avila Skin Integrity Bruising 08/10/2025 8:40 PM [...] (Latest Contact Info) Description 12/08/2025 1:30 PM PROMOTIONS REPRESENTATIVE Hospital Encounter [facility] GI Lab [address] [place] [address] Jayashree Wheeler MD [address] [place] [address] 12/08/2025 1:30 PM PROMOTIONS REPRESENTATIVE - 12/08/2025 2:00 PM PROMOTIONS REPRESENTATIVE Surgery [facility] [address] [place] [address] Jayashree Wheeler MD [address] [place] [address] TRANSESOPHAGEAL ECHOCARDIOGRAM 12/16/2025 10:40 AM PROMOTIONS REPRESENTATIVE Hospital Encounter [facility] Electrophysiology Lab [address] [place] [address] [place] [address] [place], [place] [id number] Stenosis of left carotid artery 12/16/2025 10:40 AM PROMOTIONS REPRESENTATIVE - 12/16/2025 12:26 PM PROMOTIONS REPRESENTATIVE Surgery [facility] Electrophysiology Lab [address] [place] [address] [place] [address] [place] [address] carotid angiogram [52688 (CPT )] Scheduled Procedures Name Priority Associated Diagnoses Date/Ti ak TRANSESOPHAGEAL ECHOCARDIOGRAM History of left atrial appendage closure 12/08/2025 1:30 PM PROMOTIONS REPRESENTATIVE documented as of this encounter Visit Diagnoses Not on filedocumented in this encounter Care Teams Sales Representative Livestock Relationship Specialty Start Date End Date Jessy Wild MD [address] [facility] [address] [place] [address] PCP - General Internal Medicine 04/12/22 Christel Chang MD Consulting Physician Cardiology 02/13/22 Rufino Manley MD Surgeon Neurosurgery 02/13/22 [place] [address] [address] Consulting Physician Endocrinology Diabetes & Metabolism 02/13/22 Jayashree Wheeler MD [address] [place] [address] Consulting Physician Cardiology 08/30/25 documented as of this encounter
--- OUTSIDE RECORDS SUMMARY | 2025-11-09 17:09 | XMS_ITS | Clinical Summary ---
Author Organization [facility] Garret avila Juan Address [address] [place] [address] Care Team Providers Care Machine Gunner Name Role Phone Larissa Wild MD Primary [...] mcg tablet TAKE 1 TABLET BY MOUTH VP DIRECTOR OF FINANCE BEFORE BREAKFAST 2 Active zinc 50 mg Tablet Take 1 Tablet by mouth daily. Active nitroglycerin (NITRODUR) 0.4 mg/hr patch APPLY 1 PATCH TO SKIN EVERY 24 HOURS NEEDED 4 Active Active Problems Problem Noted Date Diagnosed Date Chronic anemia 08/12/2022 Encounters Date Type Department Care Team Description 10/27/2025 Telephone [facility] Oncology and Hematology - [place] [address] [place] [address] Samuel Montez MD Lab Results 10/26/2025 Orders Only [facility] Oncology and Hematology - [place] [address] [place] [phone] Samuel Montez MD 10/25/2025 Telephone [facility] Oncology and Hematology - [place] [address] [place] [phone] Samuel Montez MD Fatigue 09/14/2025 External Device [...] Description 02/01/2026 11:30 AM CDT Office Visit [facility] Oncology and Hematology - [place] [address] [place] [address] Samuel Montez MD [address] [facility] [address] [place] [address] Health Maintenance Due Date Last [...] - Tdap) 02/03/2020 02/02/20 20 Medicare Advantage [place]) Preventative Visit/Annual Wellness Visit 11/24/2024 DIABETES HBA1C Q 6 MONTHS 05/02/2025 11/01/2024 INFLUENZA VACCINE (#1) 2025 4, 09/24/2022, 10/15/2021, Additional history exists RSV VACCINE (60+ or ) (1 - 1-dose 75+ series) 2026 PNEUMOCOCCAL VACCINE 50+ YEARS Completed 10/30/2020 , 02/16/2019 Procedures Procedure Name Priority Date/Time Associated Diagnosis Comments CBC WITH AUTODIFFERENTIAL Routine 2024 12:29 PM EMBEDDER COMPREHENSIVE METABOLIC PANEL Routine 10/25/2025 8:00 AM EMBEDDER from Last 3 Months Results * CBC WITH AUTODIFFERENTIAL (10/25/2025 12:29 PM EMBEDDER) Blood Samuel Montez MD HEMATOLOGY ORDERABLES Final Res ult * COMPREHENSIVE METABOLIC PANEL (10/25/2025 8:00 AM EMBEDDER) Blood Samuel Montez MD CHEMISTRY ORDERABLES Final Resu lt from Last 3 Months Insurance [employer] PPO MCR Care Teams Machine Gunner Relationship Specialty Start Date End Date Larissa Wild MD PCP - General Internal Medicine 08/12/22
--- OUTSIDE RECORDS SUMMARY | 2025-11-09 17:10 | XMS_ITS | Clinical Summary ---
Author Organization [facility] [address] [facility] [address] Address [address] [place] [address] Care Team Providers Care Automatic Coin Machine Mechanic Name Role Phone Christel Chang MD Unavailable [phone] Rufino Manley MD Unavailable [phone] Salvatore Brito MD Unavailable Jessy Wild MD Primary Care Provide r Jayashree Wheeler MD Unavailable Allergies Active Allergy Reactions Criticality Noted Date [...] 1 tablet (50 mcg total) by mouth zinc plate cutter before breakfast 90 tablet 3 02/17/20 24 [...] (06/28/2022): Added automatically from request for surgery [id number] History of CVA (cerebrovascular accident) 2021 Acquired hypothyroidism 02/28/2022 Assessment & Plan (01/25/2025 9:17 AM CO FOUNDER AND CHAIRMAN): Chronic problem. Biochemically euthyroid on current levothyroxine [...] (02/26/2022): Added automatically from request for surgery [id number] Moderate malnutrition 02/13/2022 ST elevation myocardial infa [...] Care Team Description 12/09/20 25 Orders Only [facility] Cardiac Catheterization Lab [address] [place] [address] Jayashree Wheeler MD History of left atrial appendage closure (Primary Dx) 10/07/20 9:49 AM CO FOUNDER AND CHAIRMAN Anesthesia Event [facility] GI Lab [address] [place] [address] Judie Bautista MD PhD 10/07/20 9:00 AM CO FOUNDER AND CHAIRMAN - 10/07/20 9:30 AM CO FOUNDER AND CHAIRMAN Surgery [facility] GI Lab [address] [place] [address] Ponce Styles MD ESOPHAGOGASTRODUODENOSCOPY 10/07/20 7:50 AM CO FOUNDER AND CHAIRMAN - 10/07/20 10:54 AM CO FOUNDER AND CHAIRMAN Hospital Encounter [facility] GI Lab [address] [place] [address] Ponce Styles MD Discharge Disposition: Discharge to home or self care 09/15/20 Telephone [facility] Gastroenterology at [address] [address] Ponce Styles MD 09/14/20 10:20 AM CDT Lab [address] [phone] Acute blood loss anemia 09/14/20 9:15 AM CDT Office Visit [facility] Gastroenterology at [address] [address] Ponce Styles MD Gastric ulcer with hemorrhage, unspecified chronicity (Primary Dx); Acute blood loss anemia; Other irritable bowel syndrome 09/14/20 Telephone [facility] Gastroenterology at [address] [address] Ponce Styles MD 08/29/20 8:57 AM CDT Anesthesia Event [facility] Electrophysiology Lab [address] [place] [address] Delvis, Ali MD [place] Quintana Emenike Adolphus Jr., MD 08/29/20 8:00 AM CDT - 08/29/20 10:00 AM CDT Surgery [facility] Electrophysiology Lab [address] [place] [address] Terell Begum MD PERC SANTANA CLOSE W/IMPLANT [id number] 08/29/20 6:05 AM CDT - 08/30/20 2:05 PM [place] [address] Terell Begum MD Atrial fibrillation with RVR (HCC) Discharge Disposition: Discharge to home or self care 08/22/20 1:41 PM CDT - 08/22/20 11:59 PM CDT Hospital Encounter [facility] Imaging and Radiology [address] [place] [address] Atrial fibrillation with RVR (HCC) Discharge Disposition: Discharge to home or self care 08/19/20 9:45 AM CDT Pre-Admission Testing [facility] Pre Anesthesia Testing [address] [place] [address] Pre-op testing (Primary Dx); Type 2 diabetes mellitus with other specified complication, unspecified whether snf insulin use (HCC) 08/12/20 Orders Only [facility] Non-invasive Cardiac Diagnostic Testing [address] [place] [address] Terell Begum MD Atrial fibrillation with RVR (HCC) (Primary Dx) 08/12/20 Telephone [facility] Gastroenterology at [address] [phone] Karla Harvey PA 08/10/20 11:48 AM CDT Anesthesia Event [facility] GI Lab [address] [place] [address] Judie Bautista MD PhD Desmond Vasquez AA 08/10/20 11:30 AM CDT - 08/10/20 12:00 PM CDT Surgery [facility] GI Lab [address] [place] [address] Sylvia Denney MD ESOPHAGOGASTRODUODENOSCOPY 08/10/20 Cardiology Conference [facility] Non-invasive Cardiac Diagnostic Testing [id number] [place] [address] Shaq Cyr RN 08/08/20 2:21 PM CDT - 08/11/20 6:20 PM CDT Hospital Encounter [facility] [address] [place] [address] Kiarra Vásquez MD Rudomiotov, Olga, MD Burton, [...] ANGIOGRAPHY AND WITH OR WITHOUT LEFT VENTRICULOGRAM [id number]; Surgeon: Terell Begum MD; Location: CARDIAC VENEREAL DISEASE CONTROL HEAD; Service: Cardiovascular; Laterality: N/A; Medical devices from this surgery are in the Medical Devices section. CARDIAC CATHETERIZATION 07/29/2025 N/A Procedure: CORONARY FLOW VELOCITY (CFR) / FRACTIONAL FLOW VELOCITY (FFR), 1ST VESSEL (+) [id number]; Surgeon: Terell Begum MD; Location: CARDIAC VENEREAL DISEASE CONTROL HEAD; Service: Cardiovascular; Laterality: N/A; Medical devices from this surgery are in the Medical Devices section. CARDIAC CATHETERIZATION 07/29/2025 N/A Procedure: IVUS/OCT CORS OR GRAFTS, FIRST VESSEL (+) [id number]; Surgeon: Terell Begum MD; Location: CARDIAC VENEREAL DISEASE CONTROL HEAD; Service: Cardiovascular; Laterality: N/A; Medical devices from this surgery are in the Medical Devices section. CARDIAC CATHETERIZATION 07/29/2025 N/A Procedure: PCI SAVITA MAJOR CORONARY C9619 - [id number]; Surgeon: Terell Begum MD; Location: CARDIAC VENEREAL DISEASE CONTROL HEAD; Service: Cardiovascular; Laterality: N/A; Medical devices from this surgery are in the Medical Devices section. IMPLANTABLE CARDIAC DEVICE 08/29/2025 N/A Procedure: PERC SANTANA CLOSE W/IMPLANT 10376; Surgeon: Terell Begum MD; Location: EP LAB; [...] and Family Not on file 08/10/2025 Attends [employer] Services Not on file 08/10 Active Member [...] any time in the past 12 m [facility], were you homeless or living in a nursing home (including now)? No 08/10/2025 [facility] Utilities Answer Date Recorded In the past 12 months has [facility] electric, gas, oil, or water company threatened [...] on file Legal Sex Female 4:39 PM CO FOUNDER AND CHAIRMAN Gender Identity Not on file Sexual Orientation Not on file Last Filed Vital Signs Vital Sign Reading Time Taken Comments Blood Pressure 110/60 10/07/2025 10:25 AM CO FOUNDER AND CHAIRMAN Pulse 65 10/07/2025 10:25 AM CO FOUNDER AND CHAIRMAN Temperature 36.8 C (98.2 F) 10/07/2025 9:25 AM CO FOUNDER AND CHAIRMAN Respiratory Rate 21 10/07/2025 10:25 AM CO FOUNDER AND CHAIRMAN Oxygen Saturation 97% 10/07/2025 10:25 AM CO FOUNDER AND CHAIRMAN Inhaled Oxygen Concentration - - Weight 59.9 kg (132 lb) 10/07/2025 9:25 AM CO FOUNDER AND CHAIRMAN Height 149.9 cm (4' 11) 10/07/2025 9:25 AM CO FOUNDER AND CHAIRMAN Body Mass Index 26.66 10/07/2025 9:25 AM CO FOUNDER AND CHAIRMAN Plan of Treatment Upcoming Encounters Date Type Department Care Team (Latest Contact Info) Description 12/08/2025 1:30 PM CO FOUNDER AND CHAIRMAN Hospital Encounter [facility] GI Lab [address] [place] [address] Jayashree Wheeler MD [address] [place] [address] 12/08/2025 1:30 PM CO FOUNDER AND CHAIRMAN - 12/08/2025 2:00 PM CO FOUNDER AND CHAIRMAN Surgery [facility] GI Lab [id number] [place] [address] Jayashree Wheeler MD [address] [place] [address] TRANSESOPHAGEAL ECHOCARDIOGRAM 12/16/2025 10:40 AM CO FOUNDER AND CHAIRMAN Hospital Encounter [facility] Electrophysiology Lab [address] [place] [address] [place] [address] [place], [place] [id number] Stenosis of left carotid artery 12/16/2025 10:40 AM CO FOUNDER AND CHAIRMAN - 12/16/2025 12:26 PM CO FOUNDER AND CHAIRMAN Surgery [facility] Electrophysiology Lab [address] [place] [address] [place] [address] [facility] [place] [place] [id number] carotid angiogram [16094 (CPT )] Scheduled Procedures Name Priority Associated Diagnoses Date/Ti me TRANSESOPHAGEAL ECHOCARDIOGRAM History of left atrial appendage closure 12/08/2025 1:30 PM CO FOUNDER AND CHAIRMAN Health Maintenance Due Date Last Done Comments [...] history exists Medical Devices Implanted Type Area Outsole Rounder Device Identifier Shelf Expiration Date Model / Serial / Lot Angio-Seal Vip 6fr Closere Device [id number] - [id number] Implanted:Qty: 1 on 05/08/2022 by Rufino Manley MD at [facility] Collagen Right: Femoral [employer] 02/21/2023 [id number] / / [id number] Description:Femoral artery c losure Cordis Mynxgrip 5fr Balloon Catheter Integrate Sealant Lock Latex Free [id number] - [id number] Implanted:Qty: 1 on 10/21/2023 by Rufino Manley MD at [facility] Collagen Left: Common Femoral Artery Cordis 07/24/2025 [id number] / / [id number] [employer] Acculink 6-8mm 40mm 132cm Self Expandable Rapid Exchange Low [id number] - [id number] Implanted:Qty: 1 on 05/08/2022 by Rufino Manley MD at [facility] Stent Right: Carotid [employer] 12/24/2023 [id number] / / [id number] Description:Right carotid st ent [employer] Xact 8mm 20mm Self Expand Dense Scaffold Closed Cell [place] 41610-22 - [id number] Implanted:Qty: 1 on 05/08/2022 by Rufino Manley MD at [facility] Stent Right: Carotid [employer] 02/22/2024 [id number] / / [id number] [employer] V[employer] Synergy Xd Monorail 3mm 12mm 144cm Delivery System 1 Access Port [id number] - [id number] Implanted:Qty: 1 on 08/14/2022 by Rufino Manley MD at [facility] Stent [employer] 06/02/2024 [id number] / / [id number] [employer] Synergy Xd Monorail 4.5mm 16mm 144cm Delivery System 1 Access [id number] - [id number] Implanted:Qty: 1 on 08/14/2022 by Rufino Manley MD at [facility] Stent [employer] 08/06/2023 [id number] / / [id number] [employer] Synergy Xd Monorail 4.5mm 12mm 144cm Delivery System 1 Access [id number] - [id number] Implanted:Qty: 1 on 08/14/2022 by Rufino Manley MD at [facility] Stent [employer] Vinicius 03/11/2024 [id number] / / [id number] Description:Left Vertebral a rtery [employer] [id number] Synergy Xd Monorail 3.5mm 12mm 144cm Delivery System 1 Access - [id number] Implanted:Qty: 1 on 02/05/2022 by Terell Begum MD at [facility] [email or web address] Vinicius 09/10/2023 [id number] / / [employer] [id number] Synergy Xd Monorail 4mm 16mm 144cm Delivery System 1 Access Port - [id number] Implanted:Qty: 1 on 02/05/2022 by Terell Begum MD at [facility] [employer] V[employer] 02/15/2023 [id number] / / [employer]. [employer]der[employer] Angio-Seal Vip 6fr Closere Device [id number] - [id number] Implanted:Qty: 1 on 08/14/2022 by Rufino Manley MD at [facility] TerNomanini [employer] Vinicius [id number] / / [employer] Synergy Xd Monorail 3mm 20mm 144cm Delivery System 1 Access Port [id number] - [id number] Implanted:Qty: 1 on 07/29/2025 by Christel Chang MD at [facility] [employer] 12/22/2026 [id number] / / [id number] [employer] Synergy Xd Monorail 3mm 12mm 144cm Delivery System 1 Access Port [id number] - [id number] Implanted:Qty: 1 on 07/29/2025 by Christel Chang MD at [facility] [email or web address] 02/15/2027 [id number] / / [id number] [employer] System Closure Repair Femoral Artery Suture Mediated Perclose Prostyle 51520-78 - [id number] Implanted:Qty: 1 on 08/29/2025 by Terell Begum MD at [facility] [employer] 06/23/2027 [id number] / / [id number] [employer] Occluder Cvasc Santana Flexible Braided Amplatzer Amulet 20mm Nitinol 8-Gpd0-856-020 - [id number] Implanted:Qty: 1 on 08/29/2025 by Terell Begum MD at [facility] Vascular 07/24/2029 9-ACP2-00 7 / [id number] Procedures Procedure Name Priority Date/Time Associated Diagnosis Comments ESOPHAGOGASTRODUODENOSCOPY 10/07 9:49 AM CO FOUNDER AND CHAIRMAN Gastric ulcer with hemorrhage, unspecified chronicity EGD 10/07/2025 9:47 AM CO FOUNDER AND CHAIRMAN CBC WITHOUT DIFFERENTIAL Routine 025 10:52 AM [...] PM CDT PERC SANTANA CLOSURE W/IMPLANT (WATCHMAN) 31134 Routine 08/29/2025 10:42 AM CDT Atrial fibrillation with RVR (HCC) POCT ACTIVATED CLOTTING TIME , HIGH RANGE Routine 08/29/2025 10:22 AM CDT POCT ACTIVATED CLOTTING TIME , HIGH RANGE Routine 08/29/2025 10:00 AM CDT POCT ACTIVATED CLOTTING TIME , HIGH RANGE Routine 08/29/2025 9:36 AM CDT MN AN ELECTIVE ENDOTRACHEAL AIRWAY Routine 08/29/2025 9:13 [...] mellitus with other specified complication, unspecified whether snf insulin use (HCC) EGFR Routine 08/19/2025 11:25 [...] Maintenance Results * EGD (10/07/2025 9:47 AM CO FOUNDER AND CHAIRMAN) Anatomical Region Laterality Modality Other Narrative Procedure Note Ponce Styles MD - 10/07/2025 9:47 AM CST [facility] Endoscopy Lab Patient Name: Karen Casarez Procedure Date: 10/07/2025 9:47 AM Date of : 1950 Admit Type: Outpatient Age: 75 Gender: Female Note Status: Finalized Attending MD: Ponce Styles M.D., Procedure Date: 10/07/2025 Procedure: Upper GI endoscopy Indications: Follow-up of chronic gastric ulcer withhemorrhage Providers: Ponce Styles M.D., DANIE Hernandez (Anesthesia Staff), Arpita Matta RN, Kileyannie, Learning Technologies Specialist Referring MD: Larissa Wild M.D. Medicines: Monitored [...] antireflux regimen. Procedure Code(s): --- Professional --- 28867, Esophagogastroduodenoscopy, flexible, transoral; diagnostic, including collection of specimen(s) by brushing or washing, when performed (separate procedure) Diagnosis Code(s): --- Professional --- K31.89, Other diseases of stomach and duodenum K25.4, Chronic or unspecified gastric ulcer with hemorrhage CPT copyright 2022 [employer]. All rights reserved. The codes documented in this report are preliminary and upon almond blancher reviewmay be revised to meet current compliance [...] ORDERABLES Fi nal Result Performing Organization Address City/[facility]/ZIP Co de Phone Number ANITA CORONEL [address] [place] [address] * (ABNORMAL) CBC without differential [...] NRBC abs 0.00 0.00 - 0.01 K/cumm [facility] Blood 08/30/2025 12:4 7 PM CDT 08/30/2025 12:50 PM CDT us Isela Tomlin CHOKE SETTER LAB BLOOD ORDERABLES Final Result Performing Organization Address City/[facility]/ZIP Co de Phone Number ANITA CORONEL [address] [place] [address] * TRANSTHORACIC ECHO (TTE) LIMITED/FOLLOW UP W LTD DOPPLER/CF WO CONTRAST (08/30/2025 7:22 AM CDT) EF Mod BP 52 % CONS SCIMAGE Anatomical Region Laterality Modality Ultrasound 08/30/2025 7:02 AM CDT Narrative 08/30/2025 8:48 [place] [address] Limited Echocardiogram Report Patient Name: KAREN CASAREZ P : 1950 Study Date: 08/30/2025 7:02:08 AM Sex: F Tech: Location: [id number] Ref Provider: TERELL BEGUM Height(Cm): 149 BSA: [...] Procedure Note Bhupendra Goldberg MD - 08/30/2025 [place] [address] Limited Echocardiogram Report Patient Name: KAREN CASAREZ P : 1950 Study Date: 08/30/2025 7:02:08 AM Sex: F Tech: Location: [id number] Ref Provider: TERELL BEGUM Height(Cm): 149 BSA: [...] MD LAB BLOOD ORDERABLES F inal Result [facility] [address] Department [place] [address] * (ABNORMAL) Iron profile w/ IBC (08/30/2025 6:09 AM CDT) Iron 25(L) 35 - 145 mcg/dl TIBC 308 250 - 400 mcg/dL [facility] Transferrin saturation 8(L) 20 - 50 % ANITA Blood 08/30/2025 6:09 AM CDT 08/30/2025 6:21 AM CDT us Jayashree [place] MD LAB BLOOD ORDERABLES F inal Result Performing Organization Address [facility] Co de Phone Number ANITA [address] [place] [address] * (ABNORMAL) Hemoglobin and hematocrit (08/30/2025 6:09 AM CDT) Hgb 7.8(L) 11.9 - 15.5 g/dL Hct 25.1(L) 35.6 - 45.5 % [facility] Blood 08/30/2025 6:09 AM CDT 08/30/2025 6:22 AM CDT Terell Begum MD LAB BLOOD ORDERABLES Final Resu lt Performing Organization Address [facility] de Phone Number [facility] [address] [place] [address] * (ABNORMAL) Basic metabolic panel (08/30/2025 6:09 AM CDT) Sodium 138 135 - 145 mmol/L Potassium, pl 3.8 3.3 - 4.9 mmol/L [facility] Chloride 104 97 - 110 mmol/L [facility] CO2 22 22 - 32 mmol/L [facility] Anion gap 12 2 - 15 mmol/L [facility] BUN 14 6 - 25 mg/dL [facility] Creatinine 0.58(L) 0.60 - 1.10 mg/dL [facility] Glucose 99 70 - 199 mg/dL [facility] Comment: Interpretive Data Fasting glucose [...] ORDERABLES F inal Result Performing Organization Address [facility]/ZIP Co de Phone Number ANITA CORONEL [address] [place] [address] * Transfuse RBC (08/30/2025 3:46 AM CDT) Blood Isela Tomlin NP BLOOD TRANSFUSION ORDERABL ES Final Result Performing Organization Address [facility] Co de Phone Number REYDAJA CORONEL [address] [facility] [place] [address] * Prepare RBC (08/30/2025 12:50 AM CDT) Product code [id number] Unit Number [id number] CERNER CH Product Blood Type APOS CERNER CH Dispense Status PRESUMED TRANSFUSED CERNER CH Product code [id number] CERNER CH Unit Number [id number] CERNER CH Product Blood Type APOS CERNER CH Dispense Status RETURNED CERNER CH Blood 08/30/2025 12:5 0 AM CDT 08/30/2025 12:50 AM CDT Terell Begum MD BLOOD BANK PRODUCT ORDERABLES F inal Result Performing Organization Address [facility] Co de Phone Number ANITA CORONEL [address] [facility] [place] [address] * (ABNORMAL) CBC without differential (08/29/2025 4:56 PM CDT) WBC 7.84 3.80 - 9.90 K/cumm Hgb 6.3(C) 11.9 - 15.5 g/dL [facility] Comment:This result has been called to Qi Muñoz RN by [id number] on 08/29/2025 17:25:47, and has been read [...] ORDERABLES F inal Result Performing Organization Address City/[facility]/ZIP Co de Phone Number [facility] [address] [employer] [place], [place] [id number] * (ABNORMAL) POC Activated Clotting Time, High Range (08/29/2025 10:22 AM CDT) ACT 293(H) 87 - 138 sec Blood 08/29/2025 10:2 2 AM CDT 08/29/2025 10:22 AM CDT Terell Begum MD LAB BLOOD ORDERABLES Final Resu lt Performing Organization Address [facility]/ZIP Co de Phone Number [facility] [address] [place] [address] * (ABNORMAL) POC Activated Clotting Time, High Range (08/29/2025 10:00 AM CDT) ACT 255(H) 87 - 138 sec Blood 08/29/2025 10:0 0 AM CDT 08/29/2025 10:00 AM CDT Terell Begum MD LAB BLOOD ORDERABLES Final Resu lt Performing Organization Address [facility] de Phone Number ANITA CORONEL [address] [facility] [place] [address] * (ABNORMAL) POC Activated Clotting Time, High Range (08/29/2025 9:36 AM CDT) ACT 239(H) 87 - 138 sec Blood 08/29/2025 9:36 AM CDT 08/29/2025 9:36 AM CDT Result [facility] Terell Begum MD LAB BLOOD ORDERABLES Final Resu lt Performing Organization Address [facility] de Phone Number REYDAJA CORONEL [address] [facility] [place] [address] * MN AN ELECTIVE ENDOTRACHEAL AIRWAY (08/29/2025 9:13 AM [...] Units (08/29/2025 6:59 AM CDT) Product code [id number] CERNER CH Unit Number [id number] 8-Q CERNER CH Product Blood Type APOS CERNER CH Dispense Status RETURNED CERNER CH Product code [id number] Unit Number [id number] 1-D CERNER CH Product Blood Type APOS CERNER CH Dispense Status RETURNED CERNER CH Blood 08/29/2025 6:59 AM CDT Narrative CERNER CH - 08/30/2025 1:00 AM CDT Specify Procedure:->LAAO Are special requirements needed? (All products are leukoreduced and CMV- safe)- >No Date required:-[id number] LRRBC # of [id number] Reasons:-Hold for procedure (specify procedure)} Terell Begum MD BLOOD BANK PRODUCT ORDERABLES F inal Result ANITA CORONEL [address] [employer] [place] [address] * Type and screen (08/29/2025 6:59 AM CDT) Nettie, indirect Negative ABO Rh A Positive [facility]ER [facility] Blood 08/29/2025 6:59 AM CDT 08/29/2025 1:19 PM CDT Narrative [facility]ER [facility] - 08/29/2025 2:04 PM CDT Has the patient had Daratumumab or Isatuximab in the past 6 months?->Unknown Terell Begum MD LAB BLOOD BANK TEST ORDERABLES Final Result ANITA CORONEL [address] [facility] [place] [address] * Potassium, whole blood (08/29/2025 [...] LAB BLOOD ORDERABLES Final Result ANITA CORONEL [address] Department [place] [address] * CT Heart Morphology W Contrast (08/22/2025 [...] x 22 mm. Left atrial appendage shape: [place] No evidence of left atrial appendage thrombus. [...] x 22 mm. Left atrial appendage shape: [place] No evidence of left atrial appendage thrombus. [...] 2018. Imm gran pct 0.5 % [facility] Comment: Interpretive Data Percent cell count reference ranges are not reported, since discordance with absolute values may lead to misinterpretation of CBC data. Current Interpretive Data was last revised on 2018. Lymphocyte pct 14.3 % [facility] Comment: Interpretive Data Percent cell count reference ranges are not reported, since discordance with absolute values may lead to misinterpretation of CBC data. Current Interpretive Data was last revised on 2018. Monocyte pct 8.7 % [facility] Comment: Interpretive Data Percent cell count reference ranges are not reported, since discordance with absolute values may lead to misinterpretation of CBC data. Current Interpretive Data was last revised on 2018. Eosinophil pct 3.3 % [facility] Comment: Interpretive Data Percent cell count reference ranges are not reported, since discordance with absolute values may lead to misinterpretation of CBC data. Current Interpretive Data was last revised on 2018. Basophil pct 1.4 % [facility] Comment: Interpretive Data Percent cell count reference ranges are not reported, since discordance with absolute values may lead to misinterpretation of CBC data. Current Interpretive Data was last revised on 2018. Blood 08/19/2025 11:4 2 AM CDT 08/20/2025 5:56 AM CDT us Terell Begum MD LAB BLOOD ORDERABLES Final Resu lt [facility] [address] Department [place] [address] * (ABNORMAL) CBC with auto differential (08/19/2025 11:42 AM CDT) WBC 6.64 3.80 - 9.90 K/cumm Hgb 7.8(L) 11.9 - 15.5 g/dL [facility] Hct 25.7(L) 35.6 - 45.5 % [facility] Plt 289 150 - 400 K/cumm [facility] MPV 10.2 9.1 - 12.3 fL [facility] RBC 2.67(L) 3.90 - 5.20 M/cumm [facility] MCV 96.3 81.3 - 96.4 fL [facility] MCH 29.2 27.1 - 33.3 pg [facility] [facility] MCHC 30.4(L) 32.3 - 35.7 g/dL [facility] RDW CV 17.7(H) 11.1 - 14.9 % [facility] RDW SD 62.2(H) 35.7 - 48.1 fL [facility] NRBC abs 0.00 0.00 - 0.01 K/cumm [facility] Blood 08/19/2025 11:4 2 AM CDT 08/20/2025 5:56 AM CDT Result [facility] Terell Begum MD LAB BLOOD ORDERABLES Final Resu lt Performing Organization Address [facility] Co de Phone Number [facility] [address] [place] [address] * Hemoglobin A1c (08/19/2025 11:42 AM CDT) Pathologist [facility] [place] Hgb A1C 4.7 4.0 - 5.6 % Estimated Average Glucose 88 mg/dL [facility] Comment: The ADA recommends reporting an estimated Average Glucose (eAG) with all Hemoglobin A1c results using the equation derived from a study of 507 normal and diabetic adults. Minority populations were underrepresented and children were not included. (Diabetes Care 31:6052-0287, 2008). The eAG is not equivalent to a fasting glucose. Blood 08/19/2025 11:4 2 AM CDT 08/19/2025 11:42 AM CDT Terell Begum MD LAB BLOOD ORDERABLES Final Resu lt Performing Organization Address [facility] Co de Phone Number ANITA CORONEL [address] [employer] [place], [place] [phone] * eGFR (08/19/2025 11:25 AM CDT) Pathologist [facility] eGFR >90 >=60 mL/min/1. 73 m2 Comment: [...] ORDERABLES Final Resu lt Performing Organization Address [facility] Co de Phone Number ANITA CORONEL [address] [place] [address] * aPTT (08/19/2025 11:25 AM [...] ORDERABLES Final Resu lt Performing Organization Address [facility]/ZIP Co de Phone Number ANITA [address] [place] [address] * (ABNORMAL) Protime-INR (08/19/2025 11:25 [...] MD LAB BLOOD ORDERABLES Final Resu lt [facility] [address] [facility] [place] [address] * (ABNORMAL) Comprehensive metabolic panel (08/19/2025 11:25 AM CDT) Sodium 139 135 - 145 mmol/L Potassium, pl 4.0 3.3 - 4.9 mmol/L [facility] Chloride 105 97 - 110 mmol/L [facility] CO2 23 22 - 32 mmol/L [facility] Anion gap 11 2 - 15 mmol/L [facility] BUN 17 6 - 25 mg/dL [facility] Creatinine 0.69 0.60 - 1.10 mg/dL [facility] Glucose 107 70 - 199 mg/dL [facility] Comment: Interpretive Data Fasting glucose >/= 126 [...] ORDERABLES Final Resu lt Performing Organization Address [facility] de Phone Number ANITA [address] [place] [address] * Type and screen (08/19/2025 11:08 AM CDT) Nettie, indirect Negative ABO Rh A Positive [facility] Blood 08/19/2025 11:0 8 AM CDT 08/19/2025 11:33 AM CDT Narrative [facility] - 08/19/2025 12:21 PM CDT Has the patient had Daratumumab or Isatuximab in the past 6 months?->Unknown Terell Begum MD LAB BLOOD BANK TEST ORDERABLES Final Result Performing Organization Address [facility] Phone Number ANITA [address] [place] [address] * ECG 12 lead (08/19/2025 10:35 AM CDT) 08/19/2025 10:3 5 AM CDT Narrative [facility] - 08/19/2025 12:01 PM CDT Vent Rate: 65 bpm RR Interval: 912 msec MN Interval: 0 msec QRS Duration: 90 msec QT Interval: 436 msec QTC Interval: 448 msec P-R-T [place]: 0 - 88 - 46 degrees IMPRESSION: ATRIAL FIBRILLATION WITH CONTROLLED VENTRICULAR RESPONSE NONSPECIFIC ST SEGMENT ABNORMALITY Electronically Signed By: Levy Jarvis MD, [facility] Terell Begum MD ECG ORDERABLES Final Result Performing Organization Address [facility] de Phone Number [facility] * eGFR (08/11/2025 4:36 AM CDT) eGFR [...] MD LAB BLOOD ORDERABLES Final Resu lt [facility] [address] [facility] [place] [address] * (ABNORMAL) CBC without differential (08/11/2025 4:36 AM CDT) Pathologist [facility] WBC 7.67 3.80 - 9.90 K/cumm Hgb 8.0(L) 11.9 - 15.5 g/dL [facility] Hct 24.9(L) 35.6 - 45.5 % [facility] Plt 222 150 - 400 K/cumm [facility] MPV 10.5 9.1 - 12.3 fL [facility] RBC 2.69(L) 3.90 - 5.20 M/cumm [facility] MCV 92.6 81.3 - 96.4 fL [facility] MCH 29.7 27.1 - 33.3 [...] MD LAB BLOOD ORDERABLES Final Resu lt [facility] [address] [facility] [place] [address] * Renal function panel (08/11/2025 [...] LAB BLOOD ORDERABLES Final Resu lt ANITA [address] [place] [address] * EGD (08/10/2025 10:58 AM CDT) Anatomical Region Laterality Modality Other Narrative Procedure Note Sylvia Denney MD - 08/10/2025 10:58 AM CDT [facility] Endoscopy [facility] Patient Name: Karen Casarez Procedure Date: 08/10/2025 10:58 AM Date of : 1950 Admit Type: Inpatient Age: 75 Gender: Female Note Status: Finalized Attending MD: Sylvia Denney M.D., Procedure Date: 08/10/2025 Procedure: Upper GI endoscopy Indications: Melena Providers: Sylvia Denney M.D., DANIE Wu (Anesthesia Staff), Zuly Cordero RN, Estephania, Learning [employer] Specialist Referring MD: Medicines: Monitored Anesthesia Care Complications: [...] be seen. Procedure Code(s): --- Professional --- 93125, Esophagogastroduodenoscopy, flexible, transoral; diagnostic, including collection of specimen(s) by brushing or washing, when performed (separate procedure) Diagnosis Code(s): --- Professional --- K25.9, Gastric ulcer, unspecified as acute orchronic, without hemorrhage or perforation K29.70, Gastritis, unspecified, without bleeding K44.9, Diaphragmatic hernia without obstruction or gangrene K20.90, Esophagitis, unspecified without bleeding K92.1, Melena (includes Hematochezia) CPT copyright 2022 [employer]. All rights reserved. The codes documented in this report are preliminary and upon almond blancher reviewmay be revised to meet current compliance [...] MD LAB BLOOD ORDERABLES Final Resu lt [facility] [address] [place] [address] * Iron profile w/ IBC (08/10/2025 4:10 AM CDT) Iron 69 35 - 145 mcg/dl TIBC 288 250 - 400 mcg/dL [facility] Transferrin saturation 24 20 - 50 % ANITA Blood 08/10/2025 4:10 AM CDT 08/10/2025 4:20 AM CDT us Erin Dean NP LAB BLOOD ORDERABLES Fin al Result Performing Organization Address [facility] Co de Phone Number ANITA CORONEL [address] [place] [address] * (ABNORMAL) Protime-INR (08/10/2025 4:10 AM CDT) PT 14.0(H) 10.2 - 13.5 sec INR 1.24(H) 0.90 - 1.20 [facility] Comment: Interpretive data Oral anticoagulant therapeutic ranges: Venous thromboembolism prophylaxis or treatment: 2.0-3.0 CARDIOLOGY Standard range: 2.0-3.0 High-intensity range: 2.5-3.5 Refer to indication-specific guidelines for appropriate target ranges for prosthetic heart valve replacement. Current interpretive data was last revised on 2019. Blood 08/10/2025 4:10 AM CDT 08/10/2025 4:20 AM CDT Sylvia Denney MD LAB BLOOD ORDERABLES Final Result Performing Organization Address [facility] Co de Phone Number ANITA CORONEL [address] [place] [address] * (ABNORMAL) CBC without differential (08/10/2025 4:10 AM CDT) WBC 6.80 3.80 - 9.90 K/cumm Hgb 8.3(L) 11.9 - 15.5 g/dL [facility] Hct 25.9(L) 35.6 - 45.5 % [facility] Plt 218 150 - 400 K/cumm [facility] MPV 10.3 9.1 - 12.3 fL [facility] RBC 2.80(L) 3.90 - 5.20 M/cumm [facility] MCV 92.5 81.3 - 96.4 fL [facility] MCH 29.6 27.1 - 33.3 pg [facility] MCHC 32.0(L) 32.3 - 35.7 g/dL [facility] RDW CV 17.1(H) 11.1 - 14.9 % [facility] RDW SD 57.4(H) 35.7 - 48.1 fL [facility] NRBC abs 0.00 0.00 - 0.01 K/cumm [facility] Blood 08/10/2025 4:10 AM CDT 08/10/2025 4:21 AM CDT Kaz Ying MD LAB BLOOD ORDERABLES Final Resu lt Performing Organization Address [facility]/ZIP Co de Phone Number [facility] [address] [employer] [place], [place] [id number] * Ferritin (08/10/2025 4:10 AM CDT) [facility] Ferritin 56 13 - 150 ng/mL Blood 08/10/2025 4:10 AM CDT 08/10/2025 4:20 AM CDT Erin Dean NP LAB BLOOD ORDERABLES Fin al Result Performing Organization Address [facility] Co de Phone Number [facility] [address] [employer] [place], [place] [phone] * Renal function panel (08/10/2025 4:10 AM CDT) Sodium 137 135 - 145 mmol/L Potassium, pl 3.8 3.3 - 4.9 mmol/L [facility] Chloride 102 97 - 110 mmol/L [facility] CO2 25 22 - 32 mmol/L [facility] Anion gap 10 2 - 15 mmol/L [facility] BUN 22 6 - 25 mg/dL [facility] Creatinine 0.74 0.60 - 1.10 mg/dL [facility] Glucose 103 70 - 199 mg/dL [facility] Comment: Interpretive Data Fasting glucose [...] LAB BLOOD ORDERABLES Final Resu lt ANITA [address] [facility] [place] [address] * Lipid panel (08/08/2025 11:49 PM CDT) [...] revised on 2018. 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
--- OUTSIDE RECORDS SUMMARY | 2025-11-09 17:10 | XMS_ITS | Data Portability ---
Author Organization [employer], Main Office Address [address] [place] [address] Care Team Providers Care Counseling Services Manager Name Role Phone DAWIT WILD Primary Care Provider DAWIT WILD Referring Provider [phone] CHRISTEL CHANG Children'S Attendant NARCISO ALVA Parking Patroller Assessment Encounter Date Assessment Date Assessment LastModified by Organization Details LastModified Time 11/08/2024 11/08/2024 12/30/2022: HGB 11.1 CMP: Gluc 101, TP 6.2, Glob 2.4<- advised to do more protein in diet Lipids: WNL VIT D 23.8 TSH 4.730H, FT4 1.01 A1C 4.7 06/16/2023: BUN 20 A1C 5.2 H/H 10.7/34.2 Urine micro alb 19.3 12/25/2023: A1C 5.1 Urine micro alb 63 Gluc 106 07/13/2024: A1C 5.4 Urine micro alb 29.1 BUN 25, Alb 4.6, TP WNL HGB 11.2 11/01/2024: A1C 5.0 Not available 11/08/2024 11:54:44 05/11/2025 05/11/2025 12/30/2022: HGB 11.1 CMP: Gluc 101, TP 6.2, Glob 2.4<- advised to do more protein in diet Lipids: WNL VIT D 23.8 TSH 4.730H, FT4 1.01 A1C 4.7 06/16/2023: BUN 20 A1C 5.2 H/H 10.7/34.2 Urine micro alb 19.3 12/25/2023: A1C 5.1 Urine micro alb 63 Gluc 106 07/13/2024: A1C 5.4 Urine micro alb 29.1 BUN 25, Alb 4.6, TP WNL HGB 11.2 11/01/2024: A1C 5.0 05/03/2025: Urine micro alb 29.7 Na 136 BUN 20, alb 4.8, TP WNL [email or web address] Not available 05/10/2025 18:34:42 11/09/2025 11/09/2025 12/30/2022: HGB 11.1 CMP: Gluc 101, TP 6.2, Glob 2.4<- advised to do more protein in diet Lipids: WNL VIT D 23.8 TSH 4.730H, FT4 1.01 A1C 4.7 06/16/2023: BUN 20 A1C 5.2 H/H 10.7/34.2 Urine micro alb 19.3 12/25/2023: A1C 5.1 Urine micro alb 63 Gluc 106 07/13/2024: A1C 5.4 Urine micro alb 29.1 BUN 25, Alb 4.6, TP WNL HGB 11.2 11/01/2024: A1C 5.0 05/03/2025: Urine micro alb 29.7 Na 136 BUN 20, alb 4.8, TP WNL 11/04/2025: HGB 6.9 See case, did not go to the ER! 45 minutes spent with the patient from 10.05am till 10.50am Discussed her labs, expressed alarm over the low hemoglobin, also called Dr Montez and also called the ER at [facility] and spoke with the BEER BREWER in the ER alisha Not available 11/09/2025 11:53:10 Plan of Treatment Reminders Order Date Submit Date Provider Last Modified By Organization Details Last Modified Time Details Appointments Any 15 2024 10:00A M Dawit pringle MD Not available Not available Not available Any 15 2025 09:30A M Dawit pringle MD Not available Not available Not available Lab glycoh emoglo bin, total, blood 2024 025 Not available 11/09/2025 11:32:53 microa lbumin , urine 2024 025 Not available 11/09/2025 11:32:39 protei n electr ophore sis panel, serum or plasma 2024 025 [facility] (Lab), [address] [place], [address], 11/09/2025 14:02:44 protei n electr ophore sis, 24-hr urine 2024 025 [facility] (Lab), [address] [place], [address], 11/09/2025 14:02:44 vitami n D, 25-hyd lacho, total, serum 2024 025 Not available 11/09/2025 11:32:45 lipid panel, serum 2024 025 Not available 11/09/2025 14:02:43 CMP, serum or plasma 2024 025 Not available 11/09/2025 14:02:43 CBC w/ auto diff 2024 025 Not available 11/09/2025 14:02:43 TSH, serum or plasma 2024 025 Not available 11/09/2025 14:02:43 T4, free, serum 2024 025 Not available 11/09/2025 14:02:43 glycoh emoglo bin, total, blood 2024 025 [email or web address] Not available 06/01/2025 12:23:47 microa lbumin , urine 2024 025 [email or web address] Not available 06/01/2025 12:22:42 protei n electr ophore sis panel, serum or plasma [facility] [address] [place], [address], 11/07/2025 15:10:13 protei n electr ophore sis, 24-hr urine [email or web address] [place] [address] (Lab), [address] [place], [address], 05/18/2025 09:54:58 vitami n D, 25-hyd lacho, total, serum 2024 025 [email or web address] Not available 06/01/2025 12:24:50 lipid panel, serum 2024 025 CATHY Not available 11/04/2025 16:54:49 CMP, serum or plasma 2024 025 CATHY Not available 11/04/2025 16:55:00 CBC w/ auto diff 2024 025 CATHY Not available 11/04/2025 17:18:24 TSH, serum or plasma 2024 025 CATHY Not available 11/04/2025 17:26:14 T4, free, serum 2024 025 CATHY Not available 11/04/2025 17:10:24 lipid panel, serum 2023 024 CATHY Not available 05/03/2025 20:25:32 CMP, serum or plasma 2023 024 CATHY Not available 05/03/2025 20:25:41 CBC w/ auto diff 2023 024 CATHY Not available 05/03/2025 19:48:31 glycoh emoglo bin, total, blood 2023 024 CATHY Not available 05/03/2025 20:33:23 microa lbumin , urine 2023 024 CATHY Not available 05/03/2025 20:40:42 vitami n D, 25-hyd lacho, total, serum 2023 024 [email or web address] Not available 10/31/2025 09:58:44 TSH, serum or plasma 2023 CATHY Not available 05/03/2025 20:39:56 T4, free, serum 2023 024 CATHY Not available 05/03/2025 20:27:22 Referral podiat rist referr al - Please call patien t to schedu le an appoin tment. Thank you. 2024 025 lucinda Lewis DPM, [address], [address], [place], [address], 11/09/2025 11:51:26 gyneco logist referr al - Please call patien t to schedu le an appoin tment. Thank you. 2024 025 lucinda Patrick MD, [address], [place], [address], 11/09/2025 11:51:26 cardio logist referr al - Please call patien t to schedu le an appoin tment. Thank you. 2024 025 lucinda Chang, [address], [place], [address], 11/09/2025 11:51:26 podiat rist referr al - Please call patien t to schedu le an appoin tment. Thank you. 2024 025 CATHY Lewis DPM, [address], [address], [place], [address], 11/09/2025 04:24:23 gyneco logist referr al - Please call patien t to schedu le an appoin tment. Thank you. 2024 025 CATHY Patrick MD, [address], [place], [address], 11/09/2025 04:24:23 cardio logist referr al - Please call urvashi milligan to alondra ospina an appoin tment. Thank you. 2024 025 esperanza Christel Chang, [address], [place], [address], 08/11/2025 09:52:54 gyneco logist referr al - Please call urvashi milligan to schedu le. 2023 024 Dennys Patrick MD, [address] [facility] [address], [place], [address], 07/20/2025 08:19:22 podiat rist referr al - Please call urvashi milligan to alondra le. 2023 024 [email or web address] Kevin Lewis DPM, [address], [address], [place], [address], 07/20/2025 08:19:22 cardio logist referr al 2023 024 [email or web address] Christel Chang, [address] [address], [place], [address], 11/08/2024 18:28:01 genera l surgeo n referr al - Please call urvashi milligan to refugiou le. 2023 024 [email or web address] Max Garcia MD, [address], [address], [place], [address], 07/20/2025 08:19:22 Procedures None record ed. Surgeries None record ed. Imaging DEXA, axial skelet on - Please call urvashi milligan to schedu le. 2024 025 [facility] ([facility]), [address], [place], [address], 11/09/2025 11:51:26 DEXA, axial skelet on - Please call urvashi milligan to alondra ospina. [address] ([facility]), [address], [place], [address], 06/14/2025 15:37:14 MAMMO, screen ing, digita l, bilate ral [address] [facility], [address] [place] [address] , [place], [address], 11/08/2024 14:47:10 DEXA, axial skelet on [address], [address] [place] [address] , [place], [address], 11/08/2024 14:47:29 Medication Orders None record ed. Patient TargetsNo targets recorded. Patient Instructions Encounter Date Encounter Id Patient Instructions Last Modified By Organization Details Last Modified Time 11/08/2024 [id number] diabetic eye exam* llalor Not available 11/07/2025 08:32:32 Reason for Referral Absorption Plant Operator Helper Referral for Hype rglycemia Please call patient to schedule. Referring Physician: Dawit Wild Internal Medicine, Encounter Date: 11/08/2024 Accounts Receivable Manager Referral for Gy necologic examination Please call patient to schedule. Referring Physician: Dawit Wild Internal Medicine, Encounter Date: 11/08/2024 Children'S Attendant Referral for Es sential hypertension Referring Physician: Dawit Wild Internal Medicine, Encounter Date: 11/08/2024 General Surgeon Referral for Skin lesion Please call patient to schedule. Referring Physician: Dawit Wild Internal Medicine, Encounter Date: 11/08/2024 Absorption Plant Operator Helper Referral for Hype rglycemia Please call patient to schedule an appointment. Thank you. Referring Physician: Dawit Wild Internal Medicine, Encounter Date: 05/11/2025 Accounts Receivable Manager Referral for Gy necologic examination Please call patient to schedule an appointment. Thank you. Referring Physician: Dawit Wild Internal Medicine, Encounter Date: 05/11/2025 Children'S Attendant Referral for Es sential hypertension Please call patient to schedule an appointment. Thank you. Referring Physician: Dawit Wild Internal Medicine, Encounter Date: 05/11/2025 Absorption Plant Operator Helper Referral for Hype rglycemia Please call patient to schedule an appointment. Thank you. Referring Physician: Dawit Wild Internal Medicine, Encounter Date: 11/09/2025 Accounts Receivable Manager Referral for Gy necologic examination Please call patient to schedule an appointment. Thank you. Referring Physician: Dawit Wild Internal Medicine, Encounter Date: 11/09/2025 Children'S Attendant Referral for Es sential hypertension Please call patient to schedule an appointment. Thank you. Referring Physician: Dawit Wild Internal Medicine, Encounter Date: 11/09/2025 Results Created Date Observation Date Name Description Value Unit Range Abnormal Flag Note LastModifiedBy Organization Detail LastModifiedTime 11/01/20 24 11/01/2024 CBC/C OMPLE TE BLD COUNT W/DIF F white blood cells 6.1 x10'3 /uL 4.2-10 .8 Not Available [facility] (Lab) [address] [place], [address], 11/01/2024 20:03:22 11/01/20 24 11/01/2024 CBC/C OMPLE TE BLD COUNT W/DIF F red blood cells 4.60 x10'6 /uL 3.80-5 .20 Not Available [facility] (Lab) [address] [place], [address], 11/01/2024 20:03:22 11/01/20 24 11/01/2024 CBC/C OMPLE TE BLD COUNT W/DIF F hemoglobin 13.2 g/dL 12.0-1 5.6 Not Available [facility] (Lab) [address] [place], [address], 11/01/2024 20:03:22 11/01/20 24 11/01/2024 CBC/C OMPLE TE BLD COUNT W/DIF F hematocrit 42.0 % 35.7-4 5.7 Not Available [facility] (Lab) [address] [place], [address], 11/01/2024 20:03:22 11/01/20 24 11/01/2024 CBC/C OMPLE TE BLD COUNT W/DIF F mean red cell volume 91.3 fL 82.0-9 9.0 Not Available [facility] (Lab) [address] [place], [address], 11/01/2024 20:03:22 11/01/20 24 11/01/2024 CBC/C OMPLE TE BLD COUNT W/DIF F mean red cell hemoglobin 28.7 pg 27.0-3 3.0 Not Available [facility] (Lab) [address] [place], [address], 11/01/2024 20:03:22 11/01/20 24 11/01/2024 CBC/C OMPLE TE BLD COUNT W/DIF F mean RBC HGB concentratio n 31.4 g/dL 31.0-3 6.0 Not Available [facility] (Lab) [address] [place], [address], 11/01/2024 20:03:22 11/01/20 24 11/01/2024 CBC/C OMPLE TE BLD COUNT W/DIF F red cell distribution width 19.4 % 11.8-1 5.5 high Not Available [facility] (Lab) [address] [place], [address], 11/01/2024 20:03:22 12/0911/01/2024 CBC/C OMPLE TE BLD COUNT W/DIF F platelets 270 x10'3 /uL 150-40 0 Not Available [facility] (Lab) [address] [place], [address], 11/01/2024 20:03:22 11/01/20 24 11/01/2024 CBC/C OMPLE TE BLD COUNT W/DIF F mean platelet volume 10.9 fL 9.0-12 .4 Not Available [facility] (Lab) [address] [place], [address], 11/01/2024 20:03:22 11/01/20 24 11/01/2024 CBC/C OMPLE TE BLD COUNT W/DIF F neutrophils 63.6 % 39.0-7 2.0 Not Available [facility] (Lab) [address] [place], [address], 11/01/2024 20:03:22 11/01/20 24 11/01/2024 CBC/C OMPLE TE BLD COUNT W/DIF F lymphocytes 23.0 % 16.0-4 7.0 Not Available [facility] (Lab) [address] [place], [address], 11/01/2024 20:03:22 11/01/20 24 11/01/2024 CBC/C OMPLE TE BLD COUNT W/DIF F monocytes 7.6 % 5.0-12 .0 Not Available [facility] (Lab) [address] [place], [address], 11/01/2024 20:03:22 11/01/20 24 11/01/2024 CBC/C OMPLE TE BLD COUNT W/DIF F eosinophils 3.6 % 1.0-7. 0 Not Available [facility] (Lab) [address] [place], [address], 11/01/2024 20:03:22 11/01/20 24 11/01/2024 CBC/C OMPLE TE BLD COUNT W/DIF F basophils 2.0 % 0.0-2. 0 Not Available [facility] (Lab) [address] [place], [address], 11/01/2024 20:03:22 11/01/20 24 11/01/2024 CBC/C OMPLE TE BLD COUNT W/DIF F immature granulocytes 0.2 % 0.00-0 .50 Not Available [facility] (Lab) [address] [place], [address], 11/01/2024 20:03:22 11/01/20 24 11/01/2024 CBC/C OMPLE TE BLD COUNT W/DIF F neutrophils, absolute count 3.85 x10'3 /uL 1.5-8. 0 Not Available [facility] (Lab) [address] [place], [address], 11/01/2024 20:03:22 11/01/20 24 11/01/2024 CBC/C OMPLE TE BLD COUNT W/DIF F lymphocytes, absolute count 1.39 x10'3 /uL 1.07-3 .43 Not Available [facility] (Lab) [address] [place], [address], 11/01/2024 20:03:22 11/01/20 24 11/01/2024 CBC/C OMPLE TE BLD COUNT W/DIF F monocytes, absolute count 0.46 x10'3 /uL 0.29-0 .99 Not Available [facility] (Lab) [address] [place], [address], 11/01/2024 20:03:22 11/01/20 24 11/01/2024 CBC/C OMPLE TE BLD COUNT W/DIF F eosinophils, absolute count 0.22 x10'3 /uL 0.02-0 .53 Not Available [facility] (Lab) [address] [place], [address], 11/01/2024 20:03:22 11/01/20 24 11/01/2024 CBC/C OMPLE TE BLD COUNT W/DIF F basophils, absolute count 0.12 x10'3 /uL 0.01-0 .08 high Not Available [facility] (Lab) [address] [place], [address], 11/01/2024 20:03:22 11/01/20 24 11/01/2024 CBC/C OMPLE TE BLD COUNT W/DIF F immature granulocytes ,absolute 0.01 x10'3 /uL 0.00-0 .05 Not Available [facility] (Lab) [address] [place], [address], 11/01/2024 20:03:22 11/01/20 24 11/01/2024 CBC/C OMPLE TE BLD COUNT W/DIF F nucleated red blood cells 0.0 % -0 Not Available [facility] (Lab) [address] [place], [address], 11/01/2024 20:03:22 11/01/20 24 11/01/2024 CBC/C OMPLE TE BLD COUNT W/DIF F NRBC# 0.00 x10'3 /uL Not Available [facility] (Lab) [address] [place], [address], 11/01/2024 20:03:22 11/01/20 24 11/01/2024 MICRO ALBUM IN RANDO M URINE microalbumin , urine 7.1 mg/L 0.0-16 .6 Not Available [facility] (Lab) [address] [place], [address], 11/01/2024 20:20:20 11/01/20 24 11/01/2024 LIPID PANEL cholesterol 183 mg/dL 140-19 9 NIH KAMINI NSUS RECOM MENDA TION FOR MECHELLE STERO L: ADULT CHILD LOW RISK: <200 <170 BORDE RLINE : <200- 239 ----- HIGH RISK: >240 >200 Not Available [facility] (Lab) [address] [place], [address], 11/01/2024 20:21:22 11/01/20 24 11/01/2024 LIPID PANEL triglyceride s 105 mg/dL 0-150 NIH KAMINI NSUS REPOR T RECOM MENDA TION FOR TRIGL YCERI SAVITA: ADULT CHILD LOW RISK: <150 ----- BODER LINE: 150-1 99 ----- HIGH RISK: >200 ----- Not Available [facility] (Lab) [address] [place], [address], 11/01/2024 20:21:22 11/01/20 24 11/01/2024 LIPID PANEL HDL cholesterol 105 mg/dL 40- Not Available [facility] (Lab) [address] [place], [address], 11/01/2024 20:21:22 11/01/20 24 11/01/2024 LIPID PANEL LDL cholesterol, calculated 57 mg/dL 0-130 NIH KAMINI NSUS REPOR T RECOM MENDA TIONS FOR LDL: ADULT CHILD LOW RISK <130 <110 (OPTI MAL LDL) <100 ----- BORDE RLINE : 130-1 59 ----- HIGH RISK: >160 >130 A TRIGL YCERI DE RESUL T >400 INVAL IDATE S THE CALCU LATIO N FOR LDL FRACT IONAT ION - THE LDL RESUL T WILL NOT BE REPOR MILES. Not Available [facility] (Lab) [address] [place], [address], 11/01/2024 20:21:22 11/01/20 24 11/01/2024 COMPR EHENS ALEXEI METAB OLIC PANEL sodium 135 mmol/ L 137-14 5 low Not Available [facility] (Lab) [address] [place], [address], 11/01/2024 20:21:26 11/01/20 24 11/01/2024 COMPR EHENS ALEXEI METAB OLIC PANEL potassium 4.3 mmol/ L 3.5-5. 1 Not Available [facility] (Lab) [address] [place], [address], 11/01/2024 20:21:26 11/01/20 24 11/01/2024 COMPR EHENS ALEXEI METAB OLIC PANEL chloride 107 mmol/ L 98-107 Not Available [facility] (Lab) [address] [place], [address], 11/01/2024 20:21:26 11/01/20 24 11/01/2024 COMPR EHENS ALEXEI METAB OLIC PANEL carbon dioxide 23 mmol/ L 22-30 Not Available [facility] (Lab) [address] [place], [address], 11/01/2024 20:21:26 11/01/20 24 11/01/2024 COMPR EHENS ALEXEI METAB OLIC PANEL anion gap 9.3 mmol/ L 14-22 low Not Available [facility] (Lab) [address] [place], [address], 11/01/2024 20:21:26 11/01/20 24 11/01/2024 COMPR EHENS ALEXEI METAB OLIC PANEL glucose 98 mg/dL 70-99 Not Available [facility] (Lab) [address] [place], [address], 11/01/2024 20:21:26 11/01/20 24 11/01/2024 COMPR EHENS ALEXEI METAB OLIC PANEL BUN 17 mg/dL 8-19 Not Available [facility] (Lab) [address] [place], [address], 11/01/2024 20:21:26 11/01/20 24 11/01/2024 COMPR EHENS ALEXEI METAB OLIC PANEL creatinine 0.54 mg/dL 0.66-1 .25 low Not Available [facility] (Lab) [address] [place], [address], 11/01/2024 20:21:26 11/01/20 24 11/01/2024 COMPR EHENS ALEXEI METAB OLIC PANEL GFR >60 Refer ence Range : [place] ge GFR Healt hy Adult : >60 mL/mi n/1.7 3 m2 Chron ic Kidne y Disea se: 15-60 mL/mi n/1.7 3 m2 Kidne y Failu re: <15/m L/min /1.73 m2 www.n iddk. nih.g ov The MDRD study equat ion has not been valid ated in child tristian <18 years of age; pregn ant women ; the elder ly >85 years of age; or in some racia l or ethni c subgr oups, such as Hispa nics. Outsi de the valid ated yomi eters , estim ated GFR is less accur ate, requi ring clini valentina judgm ent on a case- by-ca se basis . Clini valentina inter preta tion for other races and ages must be made by the clini hemalatha. The MDRD study equat ion has not been valid ated for the evalu ation of serum creat inine relat ed to nutri yosef l statu s or medic ation usage . For perso ns <18 years of age, a pedia tric GFR calcu lator is avail able on the [facility] websi te: https :[email or web address] avina.anaya rg/pr ofess ional s/kdo qi/gf r_cal culat or Not Available [facility] (Lab) [address] [place], [address], 11/01/2024 20:21:26 11/01/20 24 11/01/2024 COMPR EHENS ALEXEI METAB OLIC PANEL alkaline phosphatase 70 U/L 38-126 Not Available [facility] (Lab) [address] [place], [address], 11/01/2024 20:21:26 11/01/20 24 11/01/2024 COMPR EHENS ALEXEI METAB OLIC PANEL alanine aminotransfe rase 22 U/L 0-35 Not Available [facility] (Lab) [address] [place], [address], 11/01/2024 20:21:26 11/01/20 24 11/01/2024 COMPR EHENS ALEXEI METAB OLIC PANEL aspartate aminotransfe rase 33 U/L 15-37 Not Available [facility] (Lab) [address] [place], [address], 11/01/2024 20:21:26 11/01/20 24 11/01/2024 COMPR EHENS ALEXEI METAB OLIC PANEL bilirubin, total 0.60 mg/dL 0.20-1 .30 Not Available [facility] (Lab) [address] [place], [address], 11/01/2024 20:21:26 11/01/20 24 11/01/2024 COMPR EHENS ALEXEI METAB OLIC PANEL calcium 9.6 mg/dL 8.4-10 .2 Not Available [facility] (Lab) [address] [place], [address], 11/01/2024 20:21:26 11/01/20 24 11/01/2024 COMPR EHENS ALEXEI METAB OLIC PANEL total protein 7.5 g/dL 6.3-8. 2 Not Available [facility] (Lab) [address] [place], [address], 11/01/2024 20:21:26 11/01/20 24 11/01/2024 COMPR EHENS ALEXEI METAB OLIC PANEL albumin 4.8 g/dL 3.0-4. 4 high Not Available [facility] (Lab) [address] [place], [address], 11/01/2024 20:21:26 11/01/20 24 11/01/2024 COMPR EHENS ALEXEI METAB OLIC PANEL globulin 2.7 g/dL 2.6-4. 2 Not Available [facility] (Lab) [address] [place], [address], 11/01/2024 20:21:26 11/01/20 24 11/01/2024 COMPR EHENS ALEXEI METAB OLIC PANEL A/G ratio 1.8 ratio 1.0-2. 0 Not Available [facility] (Lab) [address] [place], [address], 11/01/2024 20:21:26 11/01/20 24 11/01/2024 T4 FREE free T4 1.09 NG/dL 0.78-2 .19 Not Available [facility] (Lab) [address] [place], [address], 11/01/2024 20:46:16 11/01/20 24 11/01/2024 VITAM IN D 25-HY DROXY vd25oh 35.1 NG/mL 30-100 Vitam in D Statu s: Defic ient: <20 ng/mL Insuf ficie nt: 20-29 ng/mL Suffi cient : 30-10 0 ng/mL Not Available [facility] (Lab) [address] [place], [address], 11/01/2024 20:37:18 11/01/20 24 11/01/2024 TSH thyroid-stim ulating hormone 2.070 uIU/m L 0.465- 4.680 Not Available [facility] (Lab) [address] [place], [address], 11/01/2024 20:45:20 11/01/20 24 11/01/2024 HEMOG LOBIN A1C HA1C 5.0 % 4.0-6. 0 Diabe dayami Scree adriana Crite murphy: <5.7% Consi stent with absen ce of diabe dayami 5.7-6 .4% Consi stent with incre ased risk for diabe dayami (pred iabet es) >OR=6 .5% Consi stent with diabe dayami REFER ENCE: Diabe dayami Care 2016, 39(Stern ppl.1 ):s13 -s22 Not Available [facility] (Lab) [address] [place], [address], 11/01/2024 21:43:20 11/01/20 24 11/02/2024 VITAM IN B12 (MOI ARVIN ) vb12 555 pg/mL 239-93 1 Not Available [facility] (Lab) [address] [place], [address], 11/02/2024 13:28:53 11/01/20 24 11/02/2024 FOLAT E, SERUM /PLAS MA folate >20.0 NG/mL 2.76-2 0.0 Not Available [facility] (Lab) [address] [place], [address], 11/02/2024 13:28:55 10/12/20 25 06/20/2025 imagi ng/di agnos tic resul t No observ ation record ed. [facility] [address], [place], [address], 10/12/2025 14:07:15 Result Notes None recorded. Problems Name Problem SNOMED Code Status Onset Date Resolution Date Notes Provider Name and Address Organization Details Recorded Time Cough 48943883 Active 2021 Not Available [facility] 3 02:54:41 Anemia 208994551 Active 2021 Not Available [facility] 3 02:54:41 Vitamin D deficiency 93139486 Active 2022 Not Available [facility] 3 02:54:41 Hyperglyce rubén 50255067 Active 2022 Not Available [facility] 3 02:54:41 Generalize d anxiety disorder 78759076 Active 2022 Dawit armas MD [address], [place], [address] , [facility] [employer] [facility] 3 18:54:07 Essential hypertensi on 37232686 Active 2022 Dawit armas MD [address], [place], [address] , [facility] 3 18:54:24 Coronary arterioscl erosis 87426335 Active 2022 Dawit armas MD [address], [address], [place], [address] , [facility] 3 18:54:40 Peripheral vascular disease 115512805 Active 2022 Dawit armas MD [address], [address], [place], [address] , [place] [facility] 3 18:54:59 Heart murmur [id number] Active 2022 Dawit armas MD [address], [place], [address] , [facility] [facility] 3 18:55:33 Liver enzymes level above reference range [id number] Active 2022 Dawit armas MD [address], [place], [address] , [facility] [facility] 3 18:55:46 Gastroesop hageal reflux disease without esophagiti s [id number] Active 2022 Dawit armas MD [address], [place], [address] , [facility] 3 18:56:08 Skin lesion 00507969 Active 2022 Dawit armas MD [address], [place], [address] , [facility] 3 18:56:53 Cerebrovas cular accident [id number] Active 2022 Dawit armas MD [address], [place], [address] , [facility] 3 18:57:00 Internal carotid artery stenosis 481687640 Active 2022 Dawit armas MD [address], [place], [address] , [facility] 3 18:57:09 Insomnia 418811453 Active 2022 Dawit armas MD [address], [place], [address] , [facility] [place] [employer] [facility] 3 18:57:32 Hypothyroi dism 74532894 Active 2022 Dawit armas MD [address], [place], [address] , [facility] [place] [facility] [facility] 3 11:13:36 Hyperlipid emia 34375060 Active 2022 Dawit armas MD [address], [place], [address] , [facility] [place] [employer] [facility] 3 11:14:52 Closed fracture of upper end of humerus 99283972 Active 2022 Dawit armas MD [address], [facility] [address], [place], [address] , [facility] [place] [facility] [facility] 3 11:28:40 Anxiety state 992173659 Active 2022 JENI Burns, [facility] 3 11:35:16 Anxiety 23868881 Active 2022 JENI Burns, [facility] 3 11:35:26 Constipati on 63035658 Active 2022 Dawit armas MD [address], [place], [address] , [facility] [place] [facility] [facility] 3 19:56:00 Proteinuri a 45532245 Active 2022 Dawit armas MD [address], [place], [address] , [facility] [place] [facility] [facility] 3 10:42:31 Hyperalbum inemia 403307590 Active 2024 Dawit armas MD [address], [place], [address] , [facility] 5 18:35:47 Acute urinary tract infection 366046280 Active 2024 JENI Burns [facility], [facility] 5 16:55:36 Upper respirator y tract finding 000126702 Active 2024 Dawit armas MD [address], [place], [address] , [facility] [employer] [facility] 5 18:25:44 Blood-ting ed feces 8501310196036 02 Active 2024 Dawit armas MD [address], [place], [address] , [facility] [place] [facility] 5 18:33:14 Problem Notes None recorded. Procedures Surgical History Date Name Laterality Status Provider Name and Address Organization Details Recorded Time 09/06/20 25 cardiac catheterization completed Gali Durbin MA [facility] [employer] [facility] 11/09/2025 11:04:59 12/23/19 23 Colonoscopy completed JENI Burns [facility] [employer] [facility] 06/23/2023 10:29:09 insertion of carotid artery stent completed Not Available [facility] 01/22/2023 02:45:24 Stent completed Not Available [facility] 01/22/2023 02:45:24 Breast Surgery completed Not Available [facility] 01/22/2023 02:45:24 CABG completed Not Available [facility] 01/22/2023 02:45:24 Hysterectomy completed Not Available [facility] 01/22/2023 02:45:24 Removal of ovary(s) completed Not Available [facility] 01/22/2023 02:45:24 Imaging Results None recorded. Procedure Notes None recorded. Medical Equipment None Reported. Allergies Allergen ID Allergen Name Allergen Category Reaction Reaction Severity Criticality Documentation Date Start Date Code Code System Note Provider Name and Address Organization Details Recorded Time 5306 Paxlovid medicatio n dyspnea Not available Not available 01/22/2023 Not Available [facility] 3 03:09:38 04731 codeine medicatio n Not available Not available low 11/04/20252017 2670 RxNorm Sever e stoma ch cramp s Not Available cathy - External Data [employer] - prod 5 17:37:08 01798 nitrofura ntoin, macrocrys tals / nitrofura ntoin, monohydra te medicatio n hives Not available high 11/04/20252021 76681 2 RxNorm Not Available [facility] [employer] - prod 5 17:37:08 Medications Name Sig Start Date Stop Date Status Note LastModified by Organization Details LastModified Time furosemid e 40 mg tablet Take 1 tablet every day by oral route. 10/30 completed Not Available Not Available Not Available atorvasta tin 40 mg tablet TAKE 1 TABLET BY MOUTH EVERY DAY active Not Available Not Available No t Available carvedilo l 25 mg tablet Take 1 tablet twice a day by oral route. 06/14 completed Not Available Not Available Not Available carvedilo l 6.25 mg tablet TAKE 1 TABLET BY MOUTH TWICE A DAY 07/19 completed Not Available Not Available Not Available carvedilo l 12.5 mg tablet TAKE 1 TABLET BY MOUTH TWICE A DAY active Not Available Not Available No t Available lidocaine 4 % topical patch APPLY TO THE MOST TENDER AREA OF THE CHEST WALL ONCE DAILY active Not Available Not Available No t Available atorvasta tin 10 mg tablet TAKE 1 TABLET DAILY active Not Available Not Available No t Available Iron (ferrous sulfate) 325 mg (65 mg iron) tablet Take 1 tablet every day by oral route. 02/20 completed Not Available Not Available Not Available cilostazo l 50 mg tablet TAKE ONE TABLET TWICE DAILY 12/17 completed Not Available Not Available Not Available benzonata te 200 mg capsule Take 1 capsule 3 times a day by oral route as needed. 02/20 completed Not Available Not Available Not Available hydrocodo ne 5 mg-acetam inophen 325 mg tablet TAKE 1 TABLET BY MOUTH EVERY 6 HOURS NEEDED FOR PAIN active Not Available Not Available No t Available sotalol 80 mg tablet 12/20 completed Not Available Not Available Not Available phenazopy ridine 200 mg tablet TAKE ONE TABLET 3 TIMES DAILY NEEDED FOR 2 DAYS 06/26 completed Not Available Not Available Not Available valsartan 160 mg-hydroc hlorothia zide 12.5 mg tablet qd 07/14 completed Not Available Not Available Not Available Pyridium 100 mg tablet Take 1 tablet 3 times a day by oral route as needed. 02/20 completed Not Available Not Available Not Available diphenoxy late-atro pine 2.5 mg-0.025 mg tablet TAKE ONE TABLET TWICE DAILY NEEDED 12/17 completed Not Available Not Available Not Available Nexium 40 mg capsule,d elayed release take one capsule by mouth once a day as needed 02/20 completed Not Available Not Available Not Available potassium chloride ER 10 mEq tablet,ex tended release qd 06/09 completed Not Available Not Available Not Available clopidogr el 75 mg tablet TAKE 1 TABLET BY MOUTH EVERY DAY active Not Available Not Available No t Available amlodipin e 5 mg tablet TAKE 1 TABLET BY MOUTH EVERY MORNING active Not Available Not Available No t Available ciproflox acin 500 mg tablet Take 1 tablet twice a day by oral route for 7 days. 07/04 completed Not Available Not Available Not Available sulfameth oxazole 800 mg-trimet hoprim 160 mg tablet TAKE ONE TABLET TWICE A DAY FOR 7 DAYS 06/26 completed Not Available Not Available Not Available aspirin 81 mg tablet,de layed release Take 1 tablet every day by oral route. 04/24 completed Per 02/13/22 CNE discharg e summary Not Available Not Available Not Available carvedilo l 3.125 mg tablet 1/2 tablet daily 12/20 completed Not Available Not Available Not Available lorazepam 0.5 mg tablet TAKE 2 TABLETS BY MOUTH TWICE A DAY NEEDED active Not Available Not Available No t Available nitroglyc yary 0.4 mg/hr transderm al 24 hour patch APPLY 1 PATCH TO SKIN EVERY 24 HOURS NEEDED FOR PAIN 11/09 completed Not Available Not Available Not Available amlodipin e 10 mg tablet qd 12/17 completed Not Available Not Available Not Available levothyro xine 50 mcg tablet TAKE 1 TABLET BY MOUTH TELETYPESETTER BEFORE BREAKFAS T active Not Available Not Available No t Available cephalexi n 500 mg capsule TAKE 1 CAPSULE BY MOUTH EVERY 8 HOURS 12/29 completed Not Available Not Available Not Available pantopraz ole 40 mg tablet,de layed release TAKE 1 TABLET BY MOUTH TWICE A DAY active Not Available Not Available No t Available biotin 10,000 mcg capsule Take 1 capsule every day by oral route. 02/20 completed Not Available Not Available Not Available metoprolo l tartrate 50 mg tablet 12/17 completed Not Available Not Available Not Available nitroglyc yary 0.4 mg sublingua l tablet PLEASE SEE ATTACHED FOR DETAILED DIRECTIO NS active Not Available Not Available No t Available sertralin e 25 mg tablet TAKE 1 TABLET BY MOUTH EVERY DAY active Not Available Not Available No t Available Banophen 25 mg capsule TAKE 1 CAPSULE BY MOUTH EVERY 6 HOURS NEEDED FOR ALLERGY CONTROL active Not Available Not Available No t Available aspirin 81 mg chewable tablet CHEW 1 TABLET BY MOUTH EVERY DAY active Not Available Not Available No t Available diclofena c sodium 75 mg tablet,de layed release qd 12/[address] Genevieve avila Not Available Not Available Not Available diltiazem CD 120 mg capsule,e xtended release 24 hr TAKE 1 CAPSULE TWICE A DAY BY ORAL ROUTE FOR 90 DAYS. 02/15 completed Per 02/13/22 CNE discharg e summary Not Available Not Available Not Available folic acid 1 mg tablet TAKE 1 TABLET BY MOUTH EVERY DAY active Not Available Not Available No t Available codeine 10 mg-guaife nesin 100 mg/5 mL oral liquid Take 5 mL twice a day by oral route as needed. 2024 active Not Available Not Available Not Avai lable zinc 50 mg tablet Take 1 tablet every day by oral route. 02/20 completed Not Available Not Available Not Available furosemid e 20 mg tablet TAKE 1 TABLET BY MOUTH EVERY DAY active Not Available Not Available No t Available metoprolo l succinate ER 25 mg tablet,ex tended release 24 hr 06/09 completed Not Available Not Available Not Available ergocalci ferol (vitamin D2) 1,250 mcg (50,000 unit) capsule TAKE 1 CAPSULE BY MOUTH ONE TIME PER WEEK active Not Available Not Available No t Available methylpre dnisolone 4 mg tablets in a dose pack TAKE 6 TABLETS ON DAY 1 DIRECTED ON PACKAGE AND DECREASE BY 1 TAB EACH DAY FOR A TOTAL OF 6 DAYS 05/22 completed Not Available Not Available Not Available losartan 50 mg-hydroc hlorothia zide 12.5 mg tablet Take 1 tablet every day by oral route for 90 days. 12/17 completed Not Available Not Available Not Available ondansetr on 4 mg disintegr ating tablet TAKE 1 TABLET BY SUBLINGU AL ROUTE EVERY EIGHT HOURS NEEDED active Not Available Not Available No t Available clotrimaz ole 1 % topical cream APPLY 1 APPLICAT ION TO AFFECTED AREA TOPICALL Y EVERY 12 HOURS active Not Available Not Available No t Available dicyclomi ne 10 mg capsule TAKE 1 CAPSULE (10 MG TOTAL) BY MOUTH 3 TIMES A DAY NEEDED FOR ABDOMINA L PAIN active Not Available Not Available No t Available folic acid 800 mcg tablet Take 1 tablet every day by oral route. 02/15 completed Not Available Not Available Not Available amoxicill in 875 mg-potass ium clavulana te 125 mg tablet TAKE 1 TABLET BY MOUTH EVERY 12 HOURS 07/19 completed Not Available Not Available Not Available Laxative (bisacody l) 5 mg tablet,de layed release TAKE 6 TABLETS BY MOUTH AT 8:00 AM ON 12/23/19 23 06/23 completed Not Available Not Available Not Available potassium chloride ER 10 mEq tablet,ex tended release(p art/cryst ) TAKE 1 TABLET DAILY 02/20 completed Not Available Not Available Not Available Urinary Pain Relief 95 mg tablet TAKE 1 TABLET THREE TIMES A DAY NEEDED 06/26 completed Not Available Not Available Not Available nitrofura ntoin monohydra te/macroc rystals 100 mg capsule TAKE 1 CAPSULE EVERY 12 HOURS FOR 5 DAYS. 05/22 completed Not Available Not Available Not Available ramelteon 8 mg tablet TAKE 1 TABLET BY MOUTH EVERY DAY active Not Available Not Available No t Available aspirin qd 12/[address] Kalvaiti s stopped this Not Available Not Available Not Available ranolazin e ER 500 mg tablet,ex tended release,1 2 hr TAKE 1 TABLET BY MOUTH TWICE A DAY active Not Available Not Available No t Available hydrocodo ne 5 mg-acetam inophen 300 mg tablet Take 1 tablet every 4 hours by oral route. 02/16 completed Not Available Not Available Not Available Bystolic 5 mg tablet qd 12/17 completed Not Available Not Available Not Available GaviLyte- G 236 gram-22.7 4 gram-6.74 gram-5.86 gram oral solution MIX AND TAKE ONE-HALF OF THE PREP AT 5:00PM ON 12/23/19 AND THE OTHER HALF AT 5:00AM ON 12/24/1906/23 completed Not Available Not Available Not Available Vitamin D3 125 mcg (5,000 unit) tablet Take 1 tablet every day by oral route. 02/20 completed Not Available Not Available Not Available magnesium 400 mg (as magnesium oxide) capsule Take 1 capsule every day by oral route. 02/20 completed Not Available Not Available Not Available Eliquis 5 mg tablet TAKE 1 TABLET BY MOUTH TWICE A DAY 11/09 completed Not Available Not Available Not Available Entresto 24 mg-26 mg tablet TAKE 1 TABLET BY MOUTH TWICE A DAY active Not Available Not Available No t Available Vitamin B12 1,000MG Daily 02/20 completed Not Available Not Available Not Available Fluzone High-Dose Quad 2019- (PF) 240 mcg/0.7 mL IM syringe 10/30 completed Not Available Not Available Not Available Vitals Date Recorded Body height Body mass index (BMI) Body weight Body temperature Heart rate Oxygen saturation Systolic And Diastolic Provider Name and Address Organization Details Last Updated DateTime 5 154.94 cm 25.3 kg/m2 19822.3 8 g 98.3 [degF] 56 /min 97 % 122/72 mm[Hg] Gali Durbin [place] [facility] [employer] 5 11:32:32 Date Recorded Body height Body mass index (BMI) Body weight Body temperature Heart rate Systolic And Diastolic Provider Name and Address Organization Details Last Updated DateTime 4 154.94 cm 26.1 kg/m2 54993.7 5 g 97.3 [degF] 72 /min 144/80 mm[Hg] JENI Burns ID [employer] [facility] [employer] 4 11:31:45 Date Recorded Body height Body mass index (BMI) Body weight Body temperature Heart rate Oxygen saturation Pain severity - 0-10 verbal numeric rating [Score] - Reported Systolic And Diastolic Provider Name and Address Organization Details Last Updated DateTime 5 154.94 cm 24.7 kg/m2 27784.8 g 96.5 [degF] 61 /min 98 % 0 138/72 mm[Hg] Gali Durbin MA [facility] [employer] [facility] 5 11:01:36 Social History Question Answer Notes LastModified by Organizat ion Details LastModified Time Tobacco Smoking Status Never Smoker Not Available [facility] 01/22/2023 02:36:31 Do You Have An Advance Directive? No [id number] Information not available 01/22/2023 Are You Blind Or Do You Have Difficulty Seeing? Yes MIGRATION.[id number] Information not available 01/22/2023 How Much Tobacco Do You Chew? None MIGRATION.[id number] 6565 Information not available 01/22/2023 In The 14 Days Before Symptom Onset, Have You Had Close Contact With A Laboratory-confir med COVID-19 While That Case Was Ill? No MIGRATION.[id number] Information not available 01/22/2023 In The 14 Days Before Symptom Onset, Have You Had Close Contact With A Person Who Is Under Investigation For COVID-19 While That Person Was Ill? No MIGRATION.[id number] 0617 Information not available 01/22/2023 Are You Deaf Or Do You Have Serious Difficulty Hearing? No MIGRATION.513377 0806 Information not available 01/22/2023 What Type Of Diet Are You Following? REGULAR MIGRATION.[id number] Information not available 01/22/2023 Which Illicit Or Recreational Drugs Have You Used? None MIGRATION.[id number] 2933 Information not available 01/22/2023 What Is The Highest Grade Or Level Of School You Have Completed Or The Highest Degree You Have Received? [id number] MIGRATION.[id number] 8559 Information not available 01/22/2023 Have There Been Any Changes To Your Family Or Social Situation? No MIGRATION.859035 7920 Information not available 01/22/2023 What Is The Fluoride Status Of Your Home? Unknown MIGRATION.721573 2955 Information not available 01/22/2023 Are There Any Guns Present In Your Home? No MIGRATION.[id number] 9213 Information not available 01/22/2023 Do You Use Insect Repellent Routinely? No MIGRATION.687556 4725 Information not available 01/22/2023 Where Do You Live? [place] MIGRATION.[id number] 8770 Information not available 01/22/2023 Do You Have A Medical Power Of Screw Driver Operator? No MIGRATION.095985 1353 Information not available 01/22/2023 What Was The Date Of Your Most Recent Tobacco Screening? 05/11/2025 [email or web address] Information not available 05/11/2025 Do You Have Any Pets? Yes MIGRATION.810347 2186 Information not available 01/22/2023 What Is Your Relationship Status? MIGRATION.902183 6665 Information not available 01/22/2023 Do You Use Your Seat Belt Or Car Seat Routinely? Yes MIGRATION.495501 0779 Information not available 01/22/2023 Do You Have Smoke And Carbon Monoxide Detectors In Your Home? Yes MIGRATION.234565 1993 Information not available 01/22/2023 Are You Passively Exposed To Smoke? No MIGRATION.409397 2422 Information not available 01/22/2023 Are There Any Smokers In Your House? No MIGRATION.635773 8579 Information not available 01/22/2023 What Types Of Sporting Activities Do You Participate In? None MIGRATION.411935 5261 Information not available 01/22/2023 Do You Use Sunscreen Routinely? No MIGRATION.138657 8502 Information not available 01/22/2023 Has Tobacco Cessation Counseling Been Provided? No N/A MIGRATION.641306 8429 Information not available 01/22/2023 How Many Years Have You Smoked Tobacco? 0 MIGRATION.033130 2538 Information not available 01/22/2023 Have You Recently Traveled Abroad? No MIGRATION.289014 6311 Information not available 01/22/2023 Do You Have Difficulty Walking Or Climbing Stairs? No MIGRATION.739884 4622 Information not available 01/22/2023 Do You Have Any Dietary Restrictions? No MIGRATION.860117 4460 Information not available 01/22/2023 Sex: Female Functional Status Question Answer Note LastModified by [employer] Details LastModified Time Do you use any illicit or recreational drugs? No MIGRATION.46224 94590 Information not available 01/22/2023 Do you or have you ever used any other forms of tobacco or nicotine? No MIGRATION.31280 55939 Information not available 01/22/2023 What is your level of alcohol consumption? None MIGRATION.44074 08805 Information not available 01/22/2023 Do you or have you ever used smokeless tobacco? Never used smokeless tobacco MIGRATION.09194 57624 Information not available 01/22/2023 Do you have transportation difficulties? No MIGRATION.14153 70374 Information not available 01/22/2023 Are you able to walk independently without assistance or assistive devices? YESWOREST MIGRATION.65950 90212 Information not available 01/22/2023 Do you have difficulty doing errands alone? Yes does not drive MIGRATION.07076 46949 Information not available 01/22/2023 Are you able to care for yourself independently? 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 No MIGRATION.60276 43860 Information not available 01/22/2023 Do you or have you ever used e-cigarettes or vape? Never used electronic cigarettes MIGRATION.10799 38283 Information not available 01/22/2023 What is your exercise level? Moderate MIGRATION.91000 89657 Information not available 01/22/2023 Mental Status Question Answer Note LastModified by Organizat ion Details LastModified Time Do you feel stressed (tense, restless, nervous, or anxious, or unable to sleep at night)? [id number] MIGRATION.[id number] 26 Information not available 01/22/2023 Do you have difficulty concentrating, remembering or making decisions? No MIGRATION.14576954 26 Information not available 01/22/2023 Family History Relationship Description Onset Age of this Age Resolved Age Notes LastModified by Organization Details LastModified Time Father Alcoholism 68 MIGRATION.[id number] Not available 01/22/2023 02:45:26 Father Cirrhosis of liver 68 MIGRATION.777 [id number] Not available 01/22/2023 02:45:26 Mother Hypertensive disorder MIGRATION.095 [id number] Not available 01/22/2023 02:45:26 Mother Heart disease MIGRATION.672 [id number] Not available 01/22/2023 02:45:26 Sister Hypertensive disorder MIGRATION.517 [id number] Not available 01/22/2023 02:45:27 Sister Heart disease MIGRATION.266 [id number] Not available 01/22/2023 02:45:27 Sister Malignant neoplasm of lung mets to brain MIGRATION.853 [id number] Not available 01/22/2023 02:45:27 Brother Hypertensive disorder x 3 MIGRATION.484 [id number] Not available 01/22/2023 02:45:27 Brother Heart disease x 3 MIGRATION.753 [id number] Not available 01/22/2023 02:45:27 Daughter Malignant lymphoma MIGRATION.848 [id number] Not available 01/22/2023 02:45:27 Medical History Condition Response NERVE DISEASE N BLINDNESS N RHEUMATIC FEVER N KIDNEY STONES N BLADDER PROBLEMS N MRSA N OTHER # 1 N POLIO N LUNG DISEASE/DISORDER N HISTORY OF DRUG ABUSE N RADIATION / CHEMOTHERAPY N COPD N Other # 2 N BLOOD DISEASES N EAR OR HEARING PROBLEMS N MUMPS N SHINGLES N BOWEL PROBLEMS N DEPRESSION (INCLUDING POST ) N STROKE/TIA Y ULCERS N BENIGN PROSTATIC HYPERPLASIA N MEASLES N HYPOTENSION N MYOCARDIAL INFARCTION N OBESITY N GERD/NAUSEA Y ANEURYSM N URINARY/BLADDER/KIDNEY PROBLEMS N CORONARY ARTERY DISEASE (CAD) Y ADDICTION CONCERNS N Impotence N ENDOMETRIOSIS N USE OF BLOOD THINNERS Y SKIN PROBLEMS N GASTROINTESTINAL DISORDER N PERIPHERAL VASCULAR DISEASE Y MUSCLE,JOINT OR BONE PROBLEMS N GASTROINTESTINAL BLEEDING N BLOOD CLOTS N ASTHMA N CATARACTS N ERECTILE DYSFUNCTION N VARICOSITIES N GI PROBLEMS N Low Testosterone N INFERTILITY N AIDS/HIV N CHEMOTHERAPY / RADIATION N LIVER DISEASE N MALE HYPOGONADISM N HYPERTENSION Y Deficiency Y TOURETTE'S N ANXIETY DISORDER Y BLOOD TRANSFUSION N ANEMIA/BLOOD DISORDER Y CHRONIC EAR INFECTIONS N BRONCHITIS N TUBERCULOSIS N GLAUCOMA N FOOT PROBLEM N DIVERTICULITIS N SLEEP APNEA N CHICKENPOX N INFECTIOUS DISEASE N PROSTATE N HEART ARRHYTHMIA N INSOMNIA Y HIGH CHOLESTEROL / HYPERLIPIDEMIA Y EYE PROBLEMS N HYPERTHYROIDISM N EDEMA N CHRONIC PAIN SYNDROME N HYPOTHYROIDISM N CONSTIPATION N CAROTID BLOCKAGE Y BACK / NECK PROBLEMS N ATHEROSCLEROSIS N BREAST PROBLEMS N DIALYSIS N ECZEMA N OSTEOPOROSIS N ARTHRITIS N APPENDICITIS N DIABETES, TYPE N BAD TEETH N ENT N HEARTBURN / REFLUX N AUTISM SPECTRUM DISORDER (ASD) N HEPATITIS / LIVER DISEASE N GOUT N SLEEP DISORDER N ALZHEIMER'S DISEASE N Brain Problems N DEMENTIA N HERPES N SEIZURES/EPILEPSY N HEADACHES/MIGRAINES N VASCULAR DISEASE N PACEMAKER N Blood Disorder N DIZZINESS N HEART DISEASE/HEART PROBLEMS Y KIDNEY DISEASE N MULTIPLE SCLEROSIS N CANCER: SPECIFY N CARDIAC ARRHYTHMIA N ATRIAL FIBRILLATION Y Gall Stones N PULMONARY EMBOLISM N AUTOIMMUNE DISEASE N Gynecological History Statement/Question Response How many live births 2 Date of Last Colonoscopy Date of Last Mammogram Date of LMP Most Recent Bone Density Date of Last Pap Current Control Method Hysterectom y Obstetrics History GPAL:G 2 P 2 0 0 2 Type Value Multiple Births 0 Full Term 2 Induced 0 Spontaneous 0 Premature 0 Living 2 Ectopics 0 Total 2 Immunizations Vaccine Type Date Status Note Provider Nam e and Address Organization Details Recorded Time COVID-19, mRNA, LNP-S, PF, 100 mcg/0.5mL dose or 50 mcg/0.25mL dose 2 completed Not Available [facility] 01/22/2023 03:09:12 COVID-19, mRNA, LNP-S, bivalent, PF, 50 mcg/0.5 mL or 25mcg/0.25 mL dose 2 completed Not Available [facility] 01/22/2023 03:09:12 Influenza, high-dose, quadrivalent, PF 2 completed Not Available [facility] 01/22/2023 03:09:12 SARS-COV-2 (COVID-19) vaccine, UNSPECIFIED 1 completed Not Available [facility] 01/22/2023 03:09:12 SARS-COV-2 (COVID-19) vaccine, UNSPECIFIED 1 completed Not Available [facility] 01/22/2023 03:09:13 SARS-COV-2 (COVID-19) vaccine, UNSPECIFIED 1 completed Not Available [facility] 01/22/2023 03:09:13 Influenza, split virus, quadrivalent, preservative 0 completed Not Available [facility] 01/22/2023 03:09:13 Influenza, high-dose, quadrivalent, PF 1 completed Not Available [facility] [facility] 01/22/2023 03:09:13 pneumococcal polysaccharide PPV23 0 completed Not Available [facility] 01/22/2023 03:09:13 Td (adult), 5 Lf tetanus toxoid, preservative free, adsorbed 0 completed Not Available [facility] 01/22/2023 03:09:14 Influenza, high-dose, trivalent, PF 0 completed Not Available [facility] 01/22/2023 03:09:14 Influenza, high-dose, trivalent, PF 8 completed Not Available [facility] 01/22/2023 03:09:14 Pneumococcal conjugate PCV 13 9 completed Not Available [facility] 01/22/2023 03:09:14 Influenza, high-dose, trivalent, PF 4 completed Dawit Wild MD [address] [place] [address], [place] [address], [place], [address], [facility] 11/12/2024 20:27:54 Past Encounters Encounter ID Performer Location Encounter Start Date Encounter Closed Date Diagnosis/Indication Diagnosis SNOMED-CT Code Diagnosis ICD10 Code Diagnosis IMO Codes Diagnosis Note [id number] Dawit ramas MD [facility] Internal Med [place] [address] [place] [address] [place] [address] 04/16/2021 00:00:00 04/25/2021 18:13:55 [id number] [address] [facility] Internal Med [place] [address] [place] [address] [place] [address] 05/16/2021 00:00:00 05/16/2021 16:15:55 [id number] [address] [facility] Internal [place] [address] [place] [address] [place] [address] 10/15/2021 00:00:00 10/17/2021 12:55:00 [id number] [facility] Internal Med [place] [address] [place] [address] [place] [address] 02/20/2022 00:00:00 03/13/2022 09:51:22 [id number] [facility] Internal [facility] [place] [address] [place] [address] y , [place] [address] 04/24/2022 00:00:00 05/20/2022 18:07:15 [id number] [facility] [place] [address] [place] [address] y , [place] [address] 05/22/2022 00:00:00 05/22/2022 10:55:03 [id number] [facility] [place] [address] [place] [address] y , [place] [address] 08/07/2022 00:00:00 08/07/2022 15:25:52 [id number] [facility] Internal [facility] [place] y , [place] [address] 10/30/2022 00:00:00 10/30/2022 11:39:54 [id number] [address] [facility] Internal [facility] [place] y , [place] [address] 02/12/2023 10:31:00 02/12/2023 11:30:59 Screening - NAD [id number] Z13.9 C-scope: 07/17/18: Dr Allred, next in 10 years Mammogram: 07/07/18: [email or web address]: NegOrdered 10/30/2020 , 04/16/2021 Addendum: 04/25/2021 :Mammogram : 04/25/2021 : Birads 0, needs to do R breast diagnostic mammogram and US R breastMamm ogram: Diagnostic R: NegOrdered 10/15/2021 , 02/20/2022 . 04/24/2022 , 10/30/2022 , advised to get this! PAP: s/p hystrectom y with oophrectom y [facility] 02/23/19 DEXA: 07/07/18: Osteopenia , no hx of fractures, do vit d and calciumDEX A: 04/25/2021 : Osteopenia Get yearly flu shotGet Tdap if not doneUTD PCV #13 02/16/19, PCV # 23 10/30/2020 and shingles vaccines, she would prefer to get this thru her pharmacyUT D on COVID 19 vaccine RTC in 3 months as per her wishesDo labsER if worseShe and her did verbalize her understand ing of the above Generalize d anxiety disorder 21100769 F41.1 On sertraline 25mg dailyOn ativan 0.5mg po daily PRN #15, all side effects explainedD oes wellNot suicidal or homicidal, declines a referral to psychiatry Essential hypertension 75255548 I10 S/p d/c from [facility]NE 02/13/[address] Chang 04/24/2022 Not on ASA (as per Dr Chang 04/19/2022 )On coreg 6.25mg bidOn plavixOn eliquis 5mg bidOn lasix 20mg dailyOn NTGOn sacubitril -valsartan 24-26mg bidNot taking potassium 10meq daily as per her (noted on OV note Dr Chang 04/19/2022 )[facility] Dr Chang 09/03/2022 Coronary arteriosclerosis 09168205 I25.10 S/p stent to RCA [facility] 01/2022 Addendum: 03/13/2022 : SOB, s/p opacities on XR Chest, treated with ceftriaxon e and azithromyc in STEMI As per [facility] records, Dr Gutierrez attempted cardiac cath thru R and L femoral, but could not complete it d/t calcificat ions [facility] Dr Chang Peripheral vascular disease 173121024 I73.9 Sees [facility] Dr Chang Heart murmur 30399098 R0 1.1 ECHO 02/05/2022 : CNE: mild global LV Sx dysfx, EF 45%,Sees [facility] Dr Chang Liver enzy mes level above reference range 979371302 R74.01 Get labsDoes well Gastroesop hageal reflux disease without esophagitis 296746720 K21.9 On pantoprazo le, states that she takes this OTC (Dr Chang's note [facility] 04/19/2022 has nexium 40mg dally)Does wellDeclin ed any EGD referrals in the pastShe should get this MAIRA, d/t her anemia, she has adamantly denied this, states that Dr Montez has 'looked me up' and says that the anemia is d/t her 'old age' Closed fra cture of upper end of humerus 86196318 S42.201A Did see ortho 12/26/2020 , does well, no further apts Vitamin D deficiency 347 71891 E55.9 Hyperglycemia 22628281 R 73.9 Get labsNot on any meds Skin lesion 68677805 L98 .9 Large likely keloid noted on the L posterior back, under the bra strapRefer to Dr Saravia referral was provided Cerebrovas cular accident [id number] I63.9 CT head 02/08/2022 : hypodense area R occipital lobeDid see Dr Sheffield, in patientNo more apts with Dr Sheffield Internal c arotid artery stenosis 805293770 I65.29 CTA head and neck: 02/10/2022 : Evolving age -indetermi fidelia R [employer]GER infarct, high grade critical stenosis off the L ICA/R ICAL eye vision loss, s/p CVA 02/08/[address] Manley 02/25/2022 , is to get DSA on 05/08/2022 Addendum: 05/20/2022 :CNE: Admitted and d/c 05/08/-: L carotid artery occlusionO V 08/07/2022 :Dr Chang 07/26/2022 , is to get vertebral artery stenting by Dr Harleen Chang and Dr Manley, s/p bilateral vertebral stents 08/14/2022 Insomnia 134446648 G47.0 0 On ramelteon 8mg daily PRNDoes well Anemia 965519896 D64.9 OV 08/07/2022 :S[facility]p ER [facility] for anemiaOn iron as per Dr Beltraneds to see hematology , states that she does have an apt with Dr Montez on next FridayDr Montez 08/27/2022 , to get IV iron Screening mammography 24 996070 Z12.31 Hypothyroidism 52189025 E03.9 On levothyrox ine 50mcgs dailyGet labs Hyperlipidemia 28779096 E78.5 On atrovastat in 40mg dailyGet labs [id number] Dawit armas MD [facility] Internal Med [place] [address] [facility] [address] [facility] [place] [address] 06/23/2023 10:17:00 06/23/2023 11:23:03 Screening - NAD [id number] Z13.9 C-scope: 07/17/18: Dr Allred, next in 10 years Mammogram: 07/07/18: [email or web address]: NegOrdered 10/30/2020 , 04/16/2021 Addendum: 04/25/2021 :Mammogram : 04/25/2021 : Birads 0, needs to do R breast diagnostic mammogram and US R breastMamm ogram: Diagnostic R: NegOrdered 10/15/2021 , 02/20/2022 . 04/24/2022 , 10/30/2022 , advised to get this! PAP: s/p hystrectom y with oophrectom y [facility] 02/23/19 DEXA: 07/07/18: Osteopenia , no hx of fractures, do vit d and calciumDEX A: 04/25/2021 : Osteopenia Get yearly flu shotGet Tdap if not doneUTD PCV #13 02/16/19, PCV # 23 10/30/2020 and shingles vaccines, she would prefer to get this thru her pharmacyUT D on COVID 19 vaccine RTC in 3 months as per her wishesDo labsER if worseShe and her did verbalize her understand ing of the above Generalize d anxiety disorder 24483982 F41.1 On sertraline 25mg dailyOn ativan 0.5mg po daily PRN #15, all side effects explainedD oes wellNot suicidal or homicidal, declines a referral to psychiatry Essential hypertension 26271227 I10 S/p d/c from [facility] 02/13/[address] [facility] [address] Chang 04/24/2022 Not on ASA (as per Dr Chang 04/19/2022 )On coreg 6.25mg bidOn plavixOn eliquis 5mg bidOn lasix 20mg dailyOn NTGOn Entresto 24-26mg bid Not taking potassium 10meq daily as per her (noted on OV note Dr Chang 04/19/2022 ) [facility] Dr Chang 09/03/2022 Coronary arteriosclerosis 51923556 I25.10 S/p stent to RCA [facility] dd endum: 03/13/2022 : SOB, s/p opacities on XR Chest, treated with ceftriaxon e and azithromyc inSTEMI As per [facility] records, Dr Gutierrez attempted cardiac cath thru R and L femoral, but could not complete it d/t calcificat ions [facility] Dr Chang Peripheral vascular disease 609133371 I73.9 Sees [facility] Dr Chang Heart murmur 03197689 R0 1.1 ECHO 02/05/2022 : CNE: mild global LV Sx dysfx, EF 45%,Sees [facility] Dr Chang Liver enzy mes level above reference range 507850983 R74.01 Get labsDoes well Gastroesop hageal reflux disease without esophagitis 816973630 K21.9 On pantoprazo le, states that she takes this OTC (Dr Chang's note [facility] 04/19/2022 has nexium 40mg dally)Does wellDeclin ed any EGD referrals in the past She should get this MAIRA, d/t her anemia, she has adamantly denied this, states that Dr Montez has 'looked me up' and says that the anemia is d/t her 'old age' Closed fra cture of upper end of humerus 68774371 S42.201A Did see ortho 12/26/2020 , does well, no further apts Vitamin D deficiency 347 53730 E55.9 Hyperglycemia 30701354 R 73.9 Get labsNot on any meds Skin lesion 34359945 L98 .9 Large likely keloid noted on the L posterior back, under the bra strapRefer to Dr Saravia referral was provided Cerebrovas cular accident [id number] I63.9 CT head 02/08/2022 : hypodense area R occipital lobeDid see Dr Sheffield, in patientNo more apts with Dr Sheffield Internal c arotid artery stenosis 383981005 I65.29 CTA head and neck: 02/10/2022 : Evolving age -indetermi fidelia R [employer]GER infarct, high grade critical stenosis off the L ICA/R ICAL eye vision loss, s/p CVA 02/08/[address] Manley 02/25/2022 , is to get DSA on 05/08/2022 Addendum: 05/20/2022 :CNE: Admitted and d/c 05/08/-: L carotid artery occlusion OV 08/07/2022 :Dr Chang 07/26/2022 , is to get vertebral artery stenting by Dr Vineet Chang and Dr Manley, s/p bilateral vertebral stents 08/14/2022 Insomnia 252347775 G47.0 0 On ramelteon 8mg daily PRNDoes well Anemia 895131860 D64.9 OV 08/07/2022 : S/p ER at [facility] for anemiaOn iron as per Dr Beltraneds to see hematology , states that she does have an apt with Dr Montez on next FridayDr Montez 08/27/2022 , to get IV iron Screening mammography 24 955228 Z12.31 Hypothyroidism 48134068 E03.9 On levothyrox ine 50mcgs dailyGet labs Hyperlipidemia 71862817 E78.5 On atrovastat in 40mg dailyGet labs Constipation 73139191 K5 9.00 [facility] 05/05/2023 , s/p CT A/P Gynecologi c examination 83877243 Z01.419 Screening for osteoporosis 043352364 Z13.820 Proteinuria 52689890 R80 .9 Needs to see nephrology , declines [id number] Dawit armas MD [facility] Internal [facility] [place] [address] [facility] [place] [address] 12/29/2023 10:20:21 12/29/2023 11:14:46 Screening - NAD 170478299 Z13.9 C-scope: 07/17/18: Dr Allred, next in 10 years Mammogram: 07/07/18: [email or web address]: NegOrdered 10/30/2020 , 04/16/2021 Addendum: 04/25/2021 :Mammogram : 04/25/2021 : Birads 0, needs to do R breast diagnostic mammogram and US R breastMamm ogram: Diagnostic R: NegOrdered 10/15/2021 , 02/20/2022 . 04/24/2022 , 10/30/2022 , advised to get this! PAP: s/p hystrectom y with [facility]ophrectom [facility] 02/23/19 DEXA: 07/07/18: Osteopenia , no hx of fractures, do vit d and calciumDEX A: 04/25/2021 : Osteopenia Get yearly flu shotGet Tdap if not doneUTD PCV #13 02/16/19, PCV # 23 10/30/2020 and shingles vaccines, she would prefer to get this thru her pharmacyUT D on COVID 19 vaccineCan do RSV vaccine RTC in 3 months as per her wishesDo labsER if worseShe and her did verbalize her understand ing of the above Generalize d anxiety disorder 08572016 F41.1 On sertraline 25mg dailyOn ativan 0.5mg po daily PRN #15, all side effects explainedD oes wellNot suicidal or homicidal, declines a referral to psychiatry Essential hypertension 12556060 I10 S/p d/c from [facility] 02/13/[address] [facility] [address] Chang 04/24/2022 Not on ASA (as per Dr Chang 04/19/2022 )On coreg 6.25mg bidOn plavixOn eliquis 5mg bidOn lasix 20mg dailyOn NTGOn Entresto 24-26mg bid Not taking potassium 10meq daily as per her (noted on OV note Dr Chang 04/19/2022 ) [facility] Dr Chang Coronary arteriosclerosis 19255556 I25.10 S/p stent to RCA [facility] dd endum: 03/13/2022 : SOB, s/p opacities on XR Chest, treated with ceftriaxon e and azithromyc inSTEMI As per [facility] records, Dr Gutierrez attempted cardiac cath thru R and L femoral, but could not complete it d/t calcificat ions [facility] Dr Chang Peripheral vascular disease 797579943 I73.9 Sees [facility] Dr Chang Heart murmur 90338874 R0 1.1 ECHO 02/05/2022 : CNE: mild global LV Sx dysfx, EF 45%,Sees [facility] Dr Chang Liver enzy mes level above reference range 811827732 R74.01 Get labsDoes well Gastroesop hageal reflux disease without esophagitis 667474484 K21.9 On pantoprazo le, states that she takes this OTC (Dr Chang's note [facility] 04/19/2022 has nexium 40mg dally)Does wellDeclin ed any EGD referrals in the past She should get this MAIRA, d/t her anemia, she has adamantly denied this, states that Dr Montez has 'looked me up' and says that the anemia is d/t her 'old age' Closed fra cture of upper end of humerus 43294983 S42.201A Did see ortho 12/26/2020 , does well, no further apts Vitamin D deficiency 347 02323 E55.9 Hyperglycemia 50621005 R 73.9 Get labsNot on any meds Skin lesion 69231178 L98 .9 Large likely keloid noted on the L posterior back, under the bra strapRefer to Dr Saravia referral was provided Cerebrovas cular accident [id number] I63.9 CT head 02/08/2022 : hypodense area R occipital lobeDid see Dr Sheffield, in patientNo more apts with Dr Sheffield Internal c arotid artery stenosis 936611684 I65.29 CTA head and neck: 02/10/2022 : Evolving age -indetermi fidelia R [employer]GER infarct, high grade critical stenosis off the L ICA/R ICAL eye vision loss, s/p CVA 02/08/[address] Manley 02/25/2022 , is to get DSA on 05/08/2022 CNE: Admitted and d/c 05/08/-: L carotid artery occlusion Dr Chang 07/26/2022 , is to get vertebral artery stenting by Dr Vineet Chang and Dr Manley, s/p bilateral vertebral stents 08/14/2022 Insomnia 478526310 G47.0 0 On ramelteon 8mg daily PRNDoes well Anemia 619693652 D64.9 OV 08/07/2022 : S/p ER at [facility] for anemiaOn iron as per Dr Beltraneds to see hematology , states that she does have an apt with Dr Montez on next FridayDr Montez 08/27/2022 , to get IV iron Screening mammography 24 037793 Z12.31 Hypothyroidism 72934510 E03.9 On levothyrox ine 50mcgs dailyGet labs Hyperlipidemia 59295490 E78.5 On atoravasta tin 40mg dailyGet labs Constipation 01379200 K5 9.00 [facility] 05/05/2023 , s/p CT A/P Gynecologi c examination 78941881 Z01.419 Screening for osteoporosis 813579342 Z13.820 Proteinuria 31311345 R80 .9 Needs to see nephrology , declines [id number] Dawit armas MD [facility] Internal Med [place] [address] [facility] y , [facility] [place] [address] 07/19/2024 10:17:16 07/19/2024 11:08:40 Screening - NAD 521624393 Z13.9 C-scope: 07/17/18: Dr Allred, next in 10 years Mammogram: 07/07/18: [email or web address]: NegOrdered 10/30/2020 , 04/16/2021 Addendum: 04/25/2021 :Mammogram : 04/25/2021 : Birads 0, needs to do R breast diagnostic mammogram and US R breastMamm ogram: Diagnostic R: NegOrdered 10/15/2021 , 02/20/2022 . 04/24/2022 , 10/30/2022 , 07/19/2024 advised to get this! Understand s the risks for un diagnosed breast cancer PAP: s/p hystrectom y with oophrectom [facility] 02/23/19 DEXA: 08/14/18: Osteopenia , no hx of fractures, do vit d and calciumDEX A: 04/25/2021 : Osteopenia Get yearly flu shotGet Tdap if not doneUTD PCV #13 02/16/19, PCV # 23 10/30/2020 and shingles vaccines, she would prefer to get this thru her pharmacyUT D on COVID 19 vaccineCan do RSV vaccine RTC in 3 months as per her wishesDo labsER if worseShe and her did verbalize her understand ing of the above Generalize d anxiety disorder 80724392 F41.1 On sertraline 25mg dailyOn ativan 0.5mg po daily PRN #15, all side effects explainedD oes wellNot suicidal or homicidal, declines a referral to psychiatry Essential hypertension 09309852 I10 S/p d/c from [facility]NE 02/13/[address] Chang 04/24/2022 Not on ASA (as per Dr Chang 04/19/2022 )On coreg 12.5mg bidOn plavixOn eliquis 5mg bidOn lasix 20mg dailyOn NTGOn Entresto 24-26mg bid Not taking potassium 10meq daily as per her (noted on OV note Dr Chang 04/19/2022 ) HV Dr Chang Coronary arteriosclerosis 63519454 I25.10 S/p stent to RCA [facility] dd endum: 03/13/2022 : SOB, s/p opacities on XR Chest, treated with ceftriaxon e and azithromyc inSTEMI As per [facility] records, Dr Gutierrez attempted cardiac cath thru R and L femoral, but could not complete it d/t calcificat ions [facility] Dr Chang Peripheral vascular disease 377046265 I73.9 Sees [facility] Dr Chang Heart murmur 58871622 R0 1.1 ECHO 02/05/2022 : CNE: mild global LV Sx dysfx, EF 45%,Sees [facility] Dr Chang Liver enzy mes level above reference range 144668358 R74.01 Get labsDoes well Gastroesop hageal reflux disease without esophagitis 925668488 K21.9 On pantoprazo le, states that she takes this OTC (Dr Chang's note [facility] 04/19/2022 has nexium 40mg amelie)Does wellDeclin ed any EGD referrals in the past She should get this MAIRA, d/t her anemia, she has adamantly denied this, states that Dr Montez has 'looked me up' and says that the anemia is d/t her 'old age' Closed fra cture of upper end of humerus 82066992 S42.201A Did see ortho 12/26/2020 , does well, no further apts Vitamin D deficiency 347 61832 E55.9 Hyperglycemia 35637377 R 73.9 Get labsNot on any meds Skin lesion 15242342 L98 .9 Large likely keloid noted on the L posterior back, under the bra strapRefer to Dr Saravia referral was provided 07/19/2024 Cerebrovas cular accident [id number] I63.9 CT head 02/08/2022 : hypodense area R occipital lobeDid see Dr Sheffield, in patientNo more apts with Dr Sheffield Internal c arotid artery stenosis 997946670 I65.29 CTA head and neck: 02/10/2022 : Evolving age -indetermi fidelia R [employer]GER infarct, high grade critical stenosis off the L ICA/R ICAL eye vision loss, s/p CVA 02/08/[address] Manley 02/25/2022 , is to get DSA on 05/08/2022 CNE: Admitted and d/c -: L carotid artery occlusion Dr Chang 07/26/2022 , is to get vertebral artery stenting by Dr Vineet Chang and Dr Manley, s/p bilateral vertebral stents 08/14/2022 Insomnia 932091798 G47.0 0 On ramelteon 8mg daily PRNDoes well Anemia 859922746 D64.9 OV 08/07/2022 : S/p ER at [facility] for anemiaOn iron as per Dr Milligan to see hematology , states that she does have an apt with Dr Montez on next FridayDr Montez 08/27/2022 , to get IV iron Screening mammography 24 905966 Z12.31 Hypothyroidism 28724407 E03.9 On levothyrox ine 50mcgs dailyGet labs Hyperlipidemia 40236814 E78.5 On atoravasta tin 40mg dailyGet labs Constipation 53049493 K5 9.00 [facility] 05/05/2023 , s/p CT A/P Gynecologi c examination 19733236 Z01.419 Screening for osteoporosis 933348130 Z13.820 Proteinuria 48762914 R80 .9 Needs to see nephrology , declines [id number] Dawit armas MD [facility] Primary Care [facility] [address] [facility] [place] [address] 11/01/2024 14:44:19 11/01/2024 15:37:39 [id number] [facility] Primary Care [facility] [address] [place] [address] 11/08/2024 10:40:54 11/08/2024 12:26:41 Screening - NAD 168686847 Z13.9 C-scope: 07/17/18: Dr Allred, next in 10 years Mammogram: 07/07/18: [id number]: NegOrdered 10/30/2020 , 04/16/2021 Addendum: 04/25/2021 :Mammogram : 04/25/2021 : Birads 0, needs to do R breast diagnostic mammogram and US R breastMamm ogram: Diagnostic R: NegOrdered 10/15/2021 , 02/20/2022 . 04/24/2022 , 10/30/2022 , 07/19/2024 advised to get this! Understand s the risks for un diagnosed breast cancer PAP: s/p hystrectom y with oophrectom y[facility]WE [facility] 02/23/19 DEXA: 07/07/18: Osteopenia , no hx of fractures, do vit d and calciumDEX A: 04/25/2021 : Osteopenia Get yearly flu shotGet Tdap if not doneUTD PCV #13 02/16/19, PCV # 23 10/30/2020 and shingles vaccines, she would prefer to get this thru her pharmacyUT D on COVID 19 vaccineCan do RSV vaccine RTC in 3 months as per her wishesDo labsER if worseShe and her did verbalize her understand ing of the above Generalize d anxiety disorder 62567427 F41.1 On sertraline 25mg dailyOn ativan 0.5mg po daily PRN #15, all side effects explainedD oes wellNot suicidal or homicidal, declines a referral to psychiatry Essential hypertension 89069427 I10 S/p d/c from [facility] 02/13/[address] [facility] [address] Chang 04/24/2022 Not on ASA (as per Dr Chang 04/19/2022 )On coreg 12.5mg bidOn plavixOn eliquis 5mg bidOn lasix 20mg dailyOn NTGOn Entresto 24-26mg bid Not taking potassium 10meq daily as per her (noted on OV note Dr Chang 04/19/2022 ) [facility] Dr Chang Coronary arteriosclerosis 77515055 I25.10 S/p stent to RCA [facility] dd endum: 03/13/2022 : SOB, s/p opacities on XR Chest, treated with ceftriaxon e and azithromyc inSTEMI As per [facility] records, Dr Gutierrez attempted cardiac cath thru R and L femoral, but could not complete it d/t calcificat ions [facility] Dr Chang Peripheral vascular disease 768593851 I73.9 Sees [facility] Dr Chang Heart murmur 25055413 R0 1.1 ECHO 02/05/2022 : CNE: mild global LV Sx dysfx, EF 45%,Sees [facility] Dr Chang Liver enzy mes level above reference range 653939676 R74.01 Get labsDoes well Gastroesop hageal reflux disease without esophagitis 501513892 K21.9 On pantoprazo le, states that she takes this OTC (Dr Chang's note [facility] 04/19/2022 has nexium 40mg dally)Does wellDeclin ed any EGD referrals in the past She should get this MAIRA, d/t her anemia, she has adamantly denied this, states that Dr Montez has 'looked me up' and says that the anemia is d/t her 'old age' Closed fra cture of upper end of humerus 89027045 S42.201A Did see ortho 12/26/2020 , does well, no further apts Vitamin D deficiency 347 11056 E55.9 Hyperglycemia 99376989 R 73.9 Get labsNot on any meds Skin lesion 30780376 L98 .9 Large likely keloid noted on the L posterior back, under the bra strapRefer to Dr Saravia referral was provided 07/19/2024 Cerebrovas cular accident [id number] I63.9 CT head 02/08/2022 : hypodense area R occipital lobeDid see Dr Sheffield, in patientNo more apts with Dr Sheffield Internal c arotid artery stenosis 176196172 I65.29 CTA head and neck: 02/10/2022 : Evolving age -indetermi fidelia R [employer]GER infarct, high grade critical stenosis off the L ICA/R ICAL eye vision loss, s/p CVA 02/08/[address] Manley 02/25/2022 , is to get DSA on 05/08/2022 CNE: Admitted and d/c -: L carotid artery occlusion Dr Chang 07/26/2022 , is to get vertebral artery stenting by Dr Vineet Chang and Dr Manley, s/p bilateral vertebral stents 08/14/2022 Insomnia 178742338 G47.0 0 On ramelteon 8mg daily PRNDoes well Anemia 024048153 D64.9 OV 08/07/2022 : S/p ER at [facility] for anemiaOn iron as per Dr Milligan to see hematology , states that she does have an apt with Dr Montez on next FridayDr Montez 08/27/2022 , to get IV iron Screening mammography 24 208670 Z12.31 Hypothyroidism 70379764 E03.9 On levothyrox ine 50mcgs dailyGet labs Hyperlipidemia 03464562 E78.5 On atoravasta tin 40mg dailyGet labs Constipation 03273756 K5 9.00 [facility] 05/05/2023 , s/p CT A/P Gynecologi c examination 44766011 Z01.419 Screening for osteoporosis 404462982 Z13.820 Proteinuria 93973842 R80 .9 Needs to see nephrology , declines Administra tion of influenza vaccine [id number] Z23 [id number] Dawit armas MD [facility] [address] [place] [address] 05/03/2025 11:14:14 05/03/2025 11:50:02 [id number] [address] MD [facility] [place] [address] [place] [address] 05/11/2025 11:06:39 05/11/2025 12:13:36 Screening - NAD 933347613 Z13.9 C-scope: 07/17/18: Dr Allred, next in 10 years Mammogram: 07/07/18: [id number]: NegOrdered 10/30/2020 , 04/16/2021 Addendum: 04/25/2021 :Mammogram : 04/25/2021 : Birads 0, needs to do R breast diagnostic mammogram and US R breastMamm ogram: Diagnostic R: NegOrdered 10/15/2021 , 02/20/2022 . 04/24/2022 , 10/30/2022 , 07/19/2024 advised to get this! Understand s the risks for un diagnosed breast cancer PAP: s/p hystrectom y with oophrectom yJAX Moy 02/23/19 DEXA: 07/07/18: Osteopenia , no hx of fractures, do vit d and calciumDEX A: 04/25/2021 : Osteopenia Get yearly flu shotGet Tdap if not doneUTD PCV #13 02/16/19, PCV # 23 10/30/2020 and shingles vaccines, she would prefer to get this thru her pharmacyUT D on COVID 19 vaccineCan do RSV vaccine RTC in 6 months as per her wishesDo labsER if worseShe and her did verbalize her understand ing of the above Generalize d anxiety disorder 09616119 F41.1 On sertraline 25mg dailyOn ativan 0.5mg po daily PRN #15, all side effects explainedD oes well Not suicidal or homicidal, declines a referral to psychiatry Essential hypertension 28541051 I10 S/p d/c from CNE 02/13/[address] [facility] [address] Chang 04/24/2022 Not on ASA (as per Dr Chang 04/19/2022 )On coreg 12.5mg bidOn plavixOn eliquis 5mg bidOn lasix 20mg dailyOn NTGOn Entresto 24-26mg bid Not taking potassium 10meq daily as per her (noted on OV note Dr Chang 04/19/2022 ) [facility] Dr Chang Coronary arteriosclerosis 64276843 I25.10 S/p stent to RCA CNE dd endum: 03/13/2022 : SOB, s/p opacities on XR Chest, treated with ceftriaxon e and azithromyc inSTEMI As per [facility], Dr Gutierrez attempted cardiac cath thru R and L femoral, but could not complete it d/t calcificat ions [facility] Dr Chang Peripheral vascular disease 867628081 I73.9 Sees [facility] Dr Chang Heart murmur 53532782 R0 1.1 ECHO 02/05/2022 : CNE: mild global LV Sx dysfx, EF 45%,Sees [facility] Dr Chang Liver enzy mes level above reference range 171972301 R74.01 Get labsDoes well Gastroesop hageal reflux disease without esophagitis 520459274 K21.9 On pantoprazo le, states that she takes this OTC (Dr Chang's note [facility] 04/19/2022 has nexium 40mg dally)Does wellDeclin ed any EGD referrals in the past She should get this MAIRA, d/t her anemia, she has adamantly denied this, states that Dr Montez has 'looked me up' and says that the anemia is d/t her 'old age' Closed fra cture of upper end of humerus 55577891 S42.201A Did see ortho 12/26/2020 , does well, no further apts Vitamin D deficiency 347 10722 E55.9 Hyperglycemia 81302995 R 73.9 Get labsNot on any meds Skin lesion 02917618 L98 .9 Large likely keloid noted on the L posterior back, under the bra strapRefer to Dr Saravia referral was provided 07/19/2024 OV05/11/20 25:Resolve d on its own Cerebrovas cular accident 767367521 I63.9 CT head 02/08/2022 : hypodense area R occipital lobeDid see Dr Sheffield, in patientNo more apts with Dr Sheffield Internal c arotid artery stenosis 847373607 I65.29 CTA head and neck: 02/10/2022 : Evolving age -indetermi fidelia R [employer]GER infarct, high grade critical stenosis off the L ICA/R ICAL eye vision loss, s/p CVA 02/08/[address] Manley 02/25/2022 , is to get DSA on 05/08/2022 CNE: Admitted and d/c -: L carotid artery occlusion Dr Chang 07/26/2022 , is to get vertebral artery stenting by Dr Vineet Chang and Dr Manley, s/p bilateral vertebral stents 08/14/2022 Today 05/11/[address] Manley this year, does see him this year Insomnia 663569388 G47.0 0 On ramelteon 8mg daily PRNDoes well Anemia 305157785 D64.9 OV 08/07/2022 : S[facility]p ER at [facility] for anemiaOn iron as per Dr Milligan to see hematology , states that she does have an apt with Dr Montez on next FridayDr Montez 08/27/2022 , to get IV iron Sees Dr Montez in 05/2025 Hypothyroidism 14006324 E03.9 On levothyrox ine 50mcgs dailyGet labs Hyperlipidemia 09305920 E78.5 On atoravasta tin 40mg dailyGet labs Constipation 23346273 K5 9.00 [facility] 05/05/2023 , s/p CT A/P Gynecologi c examination 04983815 Z01.419 Screening for osteoporosis 532273551 Z13.820 Proteinuria 75808287 R80 .9 Needs to see nephrology , declines Hyperalbuminemia 7216650 09 E88.09 54883532 [id number] Dawit armas MD [facility] [address] [place] [address] 07/20/2025 14:04:22 07/20/2025 14:15:49 [id number] Dawit armas MD [facility] [place] [address] [place] [address] 11/09/2025 10:53:27 11/09/2025 11:51:26 Screening - NAD 263974645 Z13.9 C-scope: 07/17/18: Dr Allred, next in 10 years Mammogram: 07/07/18: [id number]: NegOrdered 10/30/2020 , 04/16/2021 Addendum: 04/25/2021 :Mammogram : 04/25/2021 : Birads 0, needs to do R breast diagnostic mammogram and US R breastMamm ogram: Diagnostic R: NegOrdered 10/15/2021 , 02/20/2022 . 04/24/2022 , 10/30/2022 , 07/19/2024 advised to get this! Understand s the risks for un diagnosed breast cancer PAP: s/p hystrectom y with oophrectom yWWE Linda Moy 02/23/19 DEXA: 07/07/18: Osteopenia , no hx of fractures, do vit d and calciumDEX A: 04/25/2021 : Osteopenia Get yearly flu shotGet Tdap if not doneUTD PCV #13 02/16/19, PCV # 23 10/30/2020 and shingles vaccines, she would prefer to get this thru her pharmacyUT D on COVID 19 vaccineCan do RSV vaccineHas refused the flu shot 11/09/2025 RTC in 4 monthsDo labsER if worseShe and her did verbalize her understand ing of the above Generalize d anxiety disorder 09855753 F41.1 On sertraline 25mg dailyOn ativan 0.5mg po daily PRN #15, all side effects explainedD oes well Not suicidal or homicidal, declines a referral to psychiatry Essential hypertension 71212848 I10 S/p d/c from CNE 02/13/[address] [facility] [address] Chang 04/24/2022 Not on ASA (as per Dr Chang 04/19/2022 )On coreg 12.5mg bidOn plavixNot on eliquis 5mg bidOn lasix 20mg dailyOn NTGOn Entresto 24-26mg bid Not taking potassium 10meq daily as per her (noted on OV note Dr Chang 04/19/2022 ) [facility] Dr Bradshaw/p watchman device put inIs to see Dr Reaves in 12/16/2024 Coronary arteriosclerosis 38041151 I25.10 S/p stent to RCA CNE dd endum: 03/13/2022 : SOB, s/p opacities on XR Chest, treated with ceftriaxon e and azithromyc inSTEMI As per [facility] records, Dr Gutierrez attempted cardiac cath thru R and L femoral, but could not complete it d/t calcificat ions [facility] Dr Bradshaw/p d/c from E 08/30/2025 for A. fib Peripheral vascular disease 610670302 I73.9 Sees [facility] Dr Chang Heart murmur 17336667 R0 1.1 ECHO 02/05/2022 : CNE: mild global LV Sx dysfx, EF 45%,Sees [facility] Dr Chang Liver enzy mes level above reference range 783510050 R74.01 Get labsDoes well Gastroesop hageal reflux disease without esophagitis 860574497 K21.9 On pantoprazo le, states that she takes this OTC (Dr Chang's note [facility] 04/19/2022 has nexium 40mg dally)Does wellDeclin ed any EGD referrals in the past She should get this MAIRA, d/t her anemia, she has adamantly denied this, states that Dr Montez has 'looked me up' and says that the anemia is d/t her 'old age' s/p d/c from [facility] 08/11/2025 Closed fra cture of upper end of humerus 98434851 S42.201A Did see ortho 12/26/2020 , does well, no further apts Vitamin D deficiency 347 40940 E55.9 Hyperglycemia 51516066 R 73.9 Get labsNot on any meds Skin lesion 52169196 L98 .9 Large likely keloid noted on the L posterior back, under the bra strapRefer to Dr Saravia referral was provided 07/19/2024 OV 05/11/2025 :Resolved on its own Cerebrovas cular accident 132452167 I63.9 CT head 02/08/2022 : hypodense area R occipital lobeDid see Dr Sheffield, in patientNo more apts with Dr Sheffield Internal c arotid artery stenosis 294043412 I65.29 CTA head and neck: 02/10/2022 : Evolving age -indetermi fidelia R [employer]GER infarct, high grade critical stenosis off the L ICA/R ICAL eye vision loss, s/p CVA 02/08/[address] Manley 02/25/2022 , is to get DSA on 05/08/2022 CNE: Admitted and d/c 05/08/-: L carotid artery occlusion Dr Chang 07/26/2022 , is to get vertebral artery stenting by Dr Vineet Chang and Dr Manley, s/p bilateral vertebral stents 08/14/2022 Today 05/11/[address] Manley this year, does see him this year Insomnia 988294576 G47.0 0 On ramelteon 8mg daily PRNDoes well Anemia 572705562 D64.9 OV 08/07/2022 : S/p ER at [facility] for anemiaOn iron as per Dr Milligan to see hematology , states that she does have an apt with Dr Montez on next FridayDr Montez 08/27/2022 , to get IV iron Sees Dr Montez in 05/2025 [address] speak personally with Dr Montez he wants her to proceed to the ER today 11/09/2025 and be admitted Hypothyroidism 62883078 E03.9 On levothyrox ine 50mcgs dailyGet labs Hyperlipidemia 57614708 E78.5 On atoravasta tin 40mg dailyGet labs Constipation 46417116 K5 9.00 [facility] 05/05/2023 , s/p CT A/P Gynecologi c examination 63116701 Z01.419 Screening for osteoporosis 159691689 Z13.820 Proteinuria 15608740 R80 .9 Needs to see nephrology , declines Hyperalbuminemia 1391230 09 E88.09 28027274 Blood-tinged feces 69304 04069 98067 K92.1 7670 S/p d/c 08/11/2025 CNENeeds to see GI and hematology ASA, plavix and eliquis were held Health Concerns Section Related Observation LastModified by Organization Detai ls LastModified Time None Recorded Concern Status LastModified by Organization Details LastModified Time None Recorded Advance Directives Directive N: Payers Insurance Date Sequence Insurance Name Policy Number Policy Hinojosa Covered Member ID Hinojosa Member ID Guarantor Name 11/09/2025 1 [employer] (MEDICARE REPLACEMENT /ADVANTAGE - PPO) [id number] 1 Karen Karin PatiñoMichelle [id number] Karen Martinez Notes Date Note Type Note Provider Name and Address Organization Details Recorded Time 11/08/2024 text/html Here to establish carePast PCP: Dr Crowley hx:HTNHLDGERDChronic painReviewed social family surgical historyHere to review the above and get labsShe feels that she is doing well at this time OV 07/14/18:Here for her routine visit, here with her husbandShe did do the labs and did also see Dr Kirk that she is doing well at this time OV 08/11/18:Here to discuss the use of zoloftShe states that she is wanting to get more information for the zoloftNot suicidal or homicidalNormal sleepNormal apetiteNo weight gain or loss OV 10/13/18:Here with her husbandDoing Prisca did do the labs on 09/23/18 OV 11/2418:Seen in [facility] 11/30 thru 12/09/18Seen by Dr Castillo seen for PAD, and 5 months ago, had testing for this, was told blockage in the R and L leg, was told to get a bypass for thisIn the meantime, she also see Dr Chang also went to Dr Guzman again, and tried to open the R leg again, but Dr Guzman perforated the femoral artery and was taken to [facility], was seen by the head slab puller of [facility], and had another procedure and repaired the femoral arteryWas admitted, d/c to the 12/09/18Is to see Dr Chang, did see Dr Perry and is now on a heart monitor and is to see him on 12/25/18 and is also to get US R LE OV 12/28/18:Here for her apt s/p labsIjeoma feels that she is doing well todayIjeoma did do the labs on 12/21/18 OV 01/2619:Here for her routine aptHere with her husbandFemartha Cope did do the labs on 02/04/19 OV 06/14/19:Here for her routine aptShe is doing well at this timeShe has done labs in 03/24/19 OV 12/20/2019:Here for her routine aptShe is here with her Saul, feels really Donalatoya did see Dr Chang, and he increased the coreg on her and stopped the sotalolShe has done labs and is her to review these OV 2020:Here for ACV:S/p lac at the L IF PIP joint about 2 weeks ago, was cutting a rubber emely over her sink with a pair of new siscors and it cut her handShe is RHDShe did go to the ER and states 'it took a long time to stop bleeding', steri strips applied in ERShe still has some pain and is unable to bend the fingerNo N/T notedNo d/c or streaking notedNo fevers or chills OV 03/02/2020:Telephone visit agreeable to do thisShe feels 'great'her ROS is negativeShe did do the labs OV 06/26/2020:Here for her routine aptShe feels Prisca did do the labsShe is here with her OV 10/30/2020;Here for her routine aptShe is her with her and is doing wellSlatoya did have a fall with fracture of the R humerus and is now in PT and has seen Dr John still has to do the labs OV 04/16/2021:Here for her routine aptShe is doing very Prisca did not yet do the labsShe has not yet done the mammogram or the DEXA scans either, denies any complaints at this timeShe is here with her OV 10/15/2021:Here for her routine aptShe is here with her husbandRomele did do the labsShe does c/o a lesion on the L side of the back, states that it is 'irritated'She and her did decline the MWV OV 02/20/2022:TCM:S/p admitted and d/c CNE 02/03/2022 to 02/13/2022 [facility], [facility] C[facility] d/t EKG changesAdmitted to the ICUSeen by [facility], neurology Dr Sheffield, NS Dr Manley, and endo Dr An/p PCI to prox RCAS/p subacute CVAS/p L ICA occlusion, seen by Dr Hartman/p pneumonia, Rx with ceftriaxone and AzithromycinDoes well today, with her Saul OV 04/24/2022:Here for her routine aptShe is here with her husbandShe did do the labs on 04/17/2022 and was noted to be severely anemic, [facility] on 04/19/2022 as per him to continue with the plavix and eliquis OV 08/07/2022:Here for her f/u apt, she was seen by Dr Chang and noted to be severely anemic, was sent to the ER and also told to f/u with Dr Montez, here with her OV 10/30/2022:Here for her f/u apt, she is here with Saul her , she did do the labs OV 02/12/2023:Here for her f/u apt, she is here with her OV 06/23/2023: Here for her f/u apt with her , she does feel well, she did do the labs OV 12/29/2023: Here for her f/u apt, she is doing well today, she did do her labs, is here with her OV 07/19/2024: Here for her f/u apt, with her , she is doing well today OV 11/08/2024: Here for her f/u apt, she is here with her , she states that she is doing very well today Dawit Wild MD [address] [place] [address], [facility] [address], [place], [address], [facility] 11/12/2024 20:29:31 05/11/2025 text/html Here to establish carePast PCP: Dr Crowley hx:HTNHLDGERDChronic painReviewed social family surgical historyHere to review the above and get labsShe feels that she is doing well at this time OV 07/14/18:Here for her routine visit, here with her husbandIjeoma did do the labs and did also see Dr Kirk that she is doing well at this time OV 08/11/18:Here to discuss the use of zoloftShe states that she is wanting to get more information for the zoloftNot suicidal or homicidalNormal sleepNormal apetiteNo weight gain or loss OV 10/13/18:Here with her husbandDoing Prisca did do the labs on 09/23/18 OV 11/2418:Seen in [facility] 11/30 thru 12/09/18Seen by Dr Castillo seen for PAD, and 5 months ago, had testing for this, was told blockage in the R and L leg, was told to get a bypass for thisIn the meantime, she also see Dr Chang also went to Dr Guzman again, and tried to open the R leg again, but Dr Guzman perforated the femoral artery and was taken to [facility], was seen by the head slab puller of [facility], and had another procedure and repaired the femoral arteryWas admitted, d/c to the 12/09/18Is to see Dr Chang, did see Dr Perry and is now on a heart monitor and is to see him on 12/25/18 and is also to get US R LE OV 12/28/18:Here for her apt s/p Heike feels that she is doing well todayIjeoma did do the labs on 12/21/18 OV 01/2619:Here for her routine aptHere with her husbandAmy Donalatoya did do the labs on 02/04/19 OV 06/14/19:Here for her routine aptShe is doing well at this timeShe has done labs in 03/24/19 OV 12/20/2019:Here for her routine aptShe is here with her Saul, feels really Prisca did see Dr Chang, and he increased the coreg on her and stopped the sotalolShe has done labs and is her to review these OV 2020:Here for ACV:S/p lac at the L IF PIP joint about 2 weeks ago, was cutting a rubber emely over her sink with a pair of new siscors and it cut her handShe is RHDShe did go to the ER and states 'it took a long time to stop bleeding', steri strips applied in ERShe still has some pain and is unable to bend the fingerNo N/T notedNo d/c or streaking notedNo fevers or chills OV 03/02/2020:Telephone visit agreeable to do thisShe feels 'great'her ROS is negativeShe did do the labs OV 06/26/2020:Here for her routine aptShe feels wellShe did do the labsShe is here with her OV 10/30/2020;Here for her routine aptShe is her with her and is doing wellShe did have a fall with fracture of the R humerus and is now in PT and has seen Dr John still has to do the labs OV 04/16/2021:Here for her routine aptShe is doing very wellShe did not yet do the labsShe has not yet done the mammogram or the DEXA scans either, denies any complaints at this timeShe is here with her OV 10/15/2021:Here for her routine aptShe is here with her husbandShe did do the labsShe does c/o a lesion on the L side of the back, states that it is 'irritated'She and her did decline the MWV OV 02/20/2022:TCM:S/p admitted and d/c CNE 02/03/2022 to 02/13/2022 for [facility], [facility] and cough to CNE d/t EKG changesAdmitted to the ICUSeen by [facility], neurology Dr Sheffield, NS Dr Manley, and endo Dr An/p PCI to prox RCAS/p subacute CVAS/p L ICA occlusion, seen by Dr Hartman/p pneumonia, Rx with ceftriaxone and AzithromycinDoes well today, with her Saul OV 04/24/2022:Here for her routine aptShe is here with her husbandShe did do the labs on 04/17/2022 and was noted to be severely anemic, [facility] Bernardo MILLS on 04/19/2022 as per him to continue with the plavix and eliquis OV 08/07/2022:Here for her f/u apt, she was seen by Dr Chnag and noted to be severely anemic, was sent to the ER and also told to f/u with Dr Montez, here with her OV 10/30/2022:Here for her f/u apt, she is here with Saul her , she did do the labs OV 02/12/2023:Here for her f/u apt, she is here with her OV 06/23/2023: Here for her f/u apt with her , she does feel well, she did do the labs OV 12/29/2023: Here for her f/u apt, she is doing well today, she did do her labs, is here with her OV 07/19/2024: Here for her f/u apt, with her , she is doing well today OV 11/08/2024: Here for her f/u apt, she is here with her , she states that she is doing very well today OV 05/11/2025: Here for her f/u apt, she feels very well today and is here with her Dawit Wild MD [address], [place] [address], [place], [address], [facility] 05/11/2025 18:55:09 11/09/2025 text/html Here to establish carePast PCP: Dr Crowley hx:HTNHLDGERDChronic painReviewed social family surgical historyHere to review the above and get labsShe feels that she is doing well at this time OV 07/14/18:Here for her routine visit, here with her husbandShe did do the labs and did also see Dr Kirk that she is doing well at this time OV 08/11/18:Here to discuss the use of zoloftShe states that she is wanting to get more information for the zoloftNot suicidal or homicidalNormal sleepNormal apetiteNo weight gain or loss OV 10/13/18:Here with her husbandLeyla Cope did do the labs on 09/23/18 OV 11/2418:Seen in [place] 11/30 thru 12/09/18Se[address] Castillo seen for PAD, and 5 months ago, had testing for this, was told blockage in the R and L leg, was told to get a bypass for thisIn the meantime, she also see Dr Chang also went to Dr Guzman again, and tried to open the R leg again, but Dr Guzman perforated the femoral artery and was taken to [facility], was seen by the head slab puller of [facility], and had another procedure and repaired the femoral arteryWas admitted, d/c to the 12/09/18Is to see Dr Chang, did see Dr Perry and is now on a heart monitor and is to see him on 12/25/18 and is also to get US R LE OV 12/28/18:Here for her apt s/p labsShe feels that she is doing well todayIjeoma did do the labs on 12/21/18 OV 01/2619:Here for her routine aptHere with her husbandAmy Prisca did do the labs on 02/04/19 OV 06/14/19:Here for her routine aptShe is doing well at this timeShe has done labs in 03/24/19 OV 12/20/2019:Here for her routine aptShe is here with her Saul, feels really Prisca did see Dr Chang, and he increased the coreg on her and stopped the sotalolShe has done labs and is her to review these OV 2020:Here for ACV:S/p lac at the L IF PIP joint about 2 weeks ago, was cutting a rubber emely over her sink with a pair of new siscors and it cut her handShe is RHDShe did go to the ER and states 'it took a long time to stop bleeding', steri strips applied in ERShe still has some pain and is unable to bend the fingerNo N/T notedNo d/c or streaking notedNo fevers or chills OV 03/02/2020:Telephone visit agreeable to do thisShe feels 'great'her ROS is negativeShe did do the labs OV 06/26/2020:Here for her routine aptShe feels Prisca did do the labsShe is here with her OV 10/30/2020;Here for her routine aptShe is her with her and is doing wellShe did have a fall with fracture of the R humerus and is now in PT and has seen Dr John still has to do the labs OV 04/16/2021:Here for her routine aptShe is doing very wellShe did not yet do the labsShe has not yet done the mammogram or the DEXA scans either, denies any complaints at this timeShe is here with her OV 10/15/2021:Here for her routine aptShe is here with her husbandShe did do the labsShe does c/o a lesion on the L side of the back, states that it is 'irritated'She and her did decline the MWV OV 02/20/2022:TCM:S/p admitted and d/c CNE 02/03/2022 to 02/13/2022 [facility], [facility] and cough to CNE d/t EKG changesAdmitted to the ICUSeen by [facility], neurology Dr Sheffield, NS Dr Manley, and endo Dr An/p PCI to prox RCAS/p subacute CVAS/p L ICA occlusion, seen by Dr Hartman/p pneumonia, Rx with ceftriaxone and AzithromycinDoes well today, with her Saul OV 04/24/2022:Here for her routine aptShe is here with her husbandShe did do the labs on 04/17/2022 and was noted to be severely anemic, [facility] on 04[facility]19/2022 as per him to continue with the plavix and eliquis OV 08/07/2022:Here for her f/u apt, she was seen by Dr Chang and noted to be severely anemic, was sent to the ER and also told to f/u with Dr Montez, here with her OV 10/30/2022:Here for her f/u apt, she is here with Saul her , she did do the labs OV 02/12/2023:Here for her f/u apt, she is here with her OV 06/23/2023: Here for her f/u apt with her , she does feel well, she did do the labs OV 12/29/2023: Here for her f/u apt, she is doing well today, she did do her labs, is here with her OV 07/19/2024: Here for her f/u apt, with her , she is doing well today OV 11/08/2024: Here for her f/u apt, she is here with her , she states that she is doing very well today OV 05/11/2025: Here for her f/u apt, she feels very well today and is here with her OV 11/09/2025: Here for her f/u apt, she did do the labs, she did not go to the ER for her low HGBHere with her , she is s/p d/c from [facility] for UGI bleed and then the watch man device, she is off eliquis nowShe denies any dizziness or weakness Dawit Wlid MD [address] [place] [address], [facility] [address], [place], [id number], [place] [facility] 11/09/2025 11:57:00 OBGyn Episode No OBEpisode recorded.
== END 2025-11-09 17:32 | disposition home or self-care (01) ==
PROVIDERS: Emergency Provider Student in an Organized Health Care Education/Training Program; PCP Internal Medicine
DX: D64.9 Anemia, unspecified (principal); I10 Essential (primary) hypertension; I48.91 Unspecified atrial fibrillation; I25.10 Atherosclerotic heart disease of native coronary artery without angina pectoris; I73.9 Peripheral vascular disease, unspecified; E78.5 Hyperlipidemia, unspecified; E53.8 Deficiency of other specified B group vitamins; E03.9 Hypothyroidism, unspecified; D50.9 Iron deficiency anemia, unspecified; K21.9 Gastro-esophageal reflux disease without esophagitis; F32.A Depression, unspecified; Z86.73 Personal history of transient ischemic attack (TIA), and cerebral infarction without residual deficits; Z95.1 Presence of aortocoronary bypass graft; Z87.891 Personal history of nicotine dependence; Z90.710 Acquired absence of both cervix and uterus; Z90.722 Acquired absence of ovaries, bilateral; Z90.79 Acquired absence of other genital organ(s); Z79.01 Long term (current) use of anticoagulants; Z79.02 Long term (current) use of antithrombotics/antiplatelets; Z79.899 Other long term (current) drug therapy; R94.31 Abnormal electrocardiogram [ECG] [EKG]
CPT/HCPCS: 36415; 36430; 80053; 82728; 83540; 83550; 85014; 85018; 85025; 86850; 86900; 86901; 86923; 93005; 99285; P9016